=== PATIENT | male | born 1945 | race Caucasian/White ===

== ENCOUNTER 2018-08-24 19:06 | Inpatient (IN) | payer MEDICARE, MEDICAID ==
[~2018-08-24] VITALS: Ht 182.9 cm; Wt 69.0 kg
[2018-08-24 19:20] VITALS: BP 100/70
[2018-08-24] MEDS ORDERED: TYLENOL 650 MG (19:34)
[2018-08-24] MEDS ORDERED: DONEPEZIL HCL5 M2 GT (19:40)
[2018-08-24] MEDS ORDERED: COLACE100 MG/10 GT (19:40)
[2018-08-24] MEDS ORDERED: ASPIRIN81 MG ORAL (19:40)
[2018-08-24] MEDS ORDERED: BACLOFEN5 MG PO (19:40)
[2018-08-24] MEDS ORDERED: ATORVASTATIN CA40 MG ORAL (19:40)
[2018-08-24] MEDS ORDERED: ACETAMINOPHEN325 M1 ORAL (19:40)
[2018-08-24] MEDS ORDERED: SINEMET 25-1001 EAC1 ORAL (19:40)
[2018-08-24] MEDS ORDERED: ENOXAPARIN40 MG/0.4 SUBQ (19:40)
[2018-08-24] MEDS ORDERED: FAMOTIDINE20 MG GT (19:40)
[2018-08-24] MEDS ORDERED: INSULIN ASPART (19:41)
[2018-08-24] MEDS ORDERED: ADVAIR 250-501 EACH INH (19:41)
[2018-08-24] MEDS ORDERED: IPRATROPIU0.2 MG/1 M HHN (19:44)
[2018-08-24] MEDS ORDERED: METOPROLOL TART25 MG ORAL (19:44)
[2018-08-24] MEDS ORDERED: KEPPRA XR500 MG ORAL (19:44)
[2018-08-24] MEDS ORDERED: TAMSULOSIN HCL0.4 MG GT (19:44)
[2018-08-24] MEDS ORDERED: ZINC SULFATE220 M1 GT (19:44)
[2018-08-24] MEDS ORDERED: Acetaminophen 650 MG SUPP RECTAL ONE (21:00)
--- NOTE | 2018-08-24 21:08 | Diagnostic Imaging Report ---
EXAM: XR Chest, 1 View CLINICAL HISTORY: TACHYPNEA TECHNIQUE: Frontal view of the chest. COMPARISON: No relevant prior studies available. FINDINGS: Lungs: Unremarkable. No consolidation. Pleural space: Unremarkable. No pneumothorax. Heart: Unremarkable. No cardiomegaly. Mediastinum: Unremarkable. Bones/joints: Unremarkable. IMPRESSION: Normal chest x-ray.
[2018-08-24 21:25] LABS: APPEARANCE,URINE CLOUDY; BILIRUBIN, URINE NEGATIVE (NEGATIVE); GLUCOSE, URINE (UA) NEGATIVE (NEGATIVE); HEMATOCRIT 34.1 % (42.0-52.0); HEMOGLOBIN 11.4 G/DL (14.2-18.0); KETONES,URINE NEGATIVE (NEGATIVE); LEUKOCYTE ESTERASE ,URINE 3+ (NEGATIVE); MEAN CORPUSCULAR VOLUME 88 FL (80-99); NITRITE,URINE NEGATIVE (NEGATIVE); PH,URINE 9 (4.5-8.0); PLATELET COUNT 349 K/UL (150-450); PROTEIN,URINE 3+ (NEGATIVE); RED BLOOD COUNT 3.89 M/UL (4.70-6.10); RED CELL DISTRIBUTION WIDTH 12.3 % (11.6-14.8); UROBILINOGEN,URINE NORMAL MG/DL (0.0-1.0); WHITE BLOOD COUNT 10.4 K/UL (4.8-10.8)
[2018-08-24 21:26] LABS: COLOR,URINE YELLOW
[2018-08-24 21:27] LABS: NEUTROPHILS % (AUTO) 86.3 % (45.0-75.0)
[2018-08-24 21:28] LABS: BASOPHILS % (AUTO) 0.5 % (0.0-2.0); EOSINOPHILS % (AUTO) 0.2 % (0.0-3.0); LYMPHOCYTES % (AUTO) 8.3 % (20.0-45.0); MONOCYTES % (AUTO) 4.7 % (1.0-10.0)
[2018-08-24 21:33] LABS: ANION GAP 12 mmol/L (5-15); BLOOD UREA NITROGEN 24 mg/dL (7-18); CALCIUM 9.1 MG/DL (8.5-10.1); CARBON DIOXIDE 28 MMOL/L (21-32); CHLORIDE 102 MMOL/L (98-107); CREATININE 1.1 MG/DL (0.55-1.30); POTASSIUM 3.4 MMOL/L (3.5-5.1); SODIUM 141 MMOL/L (136-145)
[2018-08-24] MEDS ORDERED: Cefepime HCl 1 GM in D5W 55 ML IVPB ONE (21:45)
[2018-08-24 21:47] LABS: ALANINE AMINOTRANSFERASE 14 U/L (12-78); ALBUMIN 2.7 G/DL (3.4-5.0); ALBUMIN/GLOBULIN RATIO 0.5 (1.0-2.7); ALKALINE PHOSPHATASE 52 U/L (46-116); ASPARTATE AMINO TRANSFERASE 16 U/L (15-37); BILIRUBIN,TOTAL 0.5 MG/DL (0.2-1.0); CKMB 0.9 NG/ML (0.0-3.6); CREATINE KINASE 79 U/L (26-308)
[2018-08-24] MEDS ORDERED: Albuterol ud Inhalation HHN ONE (22:00)
[2018-08-24] MEDS ORDERED: Ipratropium 0.02% Inh Soln 2.5ml UD HHN ONE (22:00)
--- NOTE | 2018-08-24 22:01 | Diagnostic Imaging Report ---
EXAM: XR Right Hand Complete, 3 or More Views CLINICAL HISTORY: PAIN TECHNIQUE: Frontal, lateral and oblique views of the right hand. COMPARISON: No relevant prior studies available. FINDINGS: Bones/joints: Limited study secondary to positioning. No evidence of acute fracture or traumatic malalignment. Degenerative changes of the carpal bones. Soft tissues: Unremarkable. No radiopaque foreign body. IMPRESSION: Limited study secondary to positioning. No evidence of acute fracture or traumatic malalignment.
--- NOTE | 2018-08-24 23:27 | Emergency Room Report ---
History of Present Illness General Chief Complaint: Upper Respiratory Illness Source: EMS Present Illness HPI 73-year-old male presents ED for evaluation. Patient brought in by EMS for evaluation of cough, fever 2 days. Congested. Temp 101.8. Family at bedside also notes swelling to the right hand. Patient has history of dementia and is unable to provide any additional history at this time. No signs of distress. No reported pain. No other aggravating relieving factors. No other associated symptoms Allergies: Coded Allergies: No Known Allergies (Unverified , 08/24/18) Patient History Past Medical History: HTN, COPD, GERD, CVA/TIA, dementia, psych hx Pertinent Family History: none Social History: Denies: smoking, alcohol use, drug use Immunizations: UTD Reviewed Nursing Documentation: PMH: Agreed; PSxH: Agreed Nursing Documentation-PMH Hx Cardiac Problems: Yes - hyperlipidemia Hx Hypertension: Yes Hx COPD: Yes Hx Diabetes: Yes Hx Gastrointestinal Problems: Yes - gerd History Of Psychiatric Problem: Yes - dementia Hx Cerebrovascular Accident: Yes - cva Hx Seizures: Yes Review of Systems All Other Systems: limited Physical Exam Vital Signs Date Time Temp Pulse Resp B/P (MAP) Pulse Ox O2 Delivery O2 Flow Rate FiO2 08/24/18 19:08 101.8 130 20 100/70 94 Room Air 08/24/18 19:20 2.0 08/24/18 21:56 28 Sp02 EP Interpretation: reviewed, normal General Appearance: no apparent distress, GCS 15, non-toxic, other - dementia Head: normocephalic, atraumatic Eyes: bilateral eye normal inspection, bilateral eye PERRL ENT: hearing grossly normal, normal pharynx, no angioedema, normal voice Neck: full range of motion, supple/symm/no masses Respiratory: crackles, speaking full sentences, wheezing Cardiovascular #1: no edema, tachycardia Cardiovascular #2: 2+ carotid (R), 2+ carotid (L), 2+ radial (R), 2+ radial (L) , 2+ dorsalis pedis (R), 2+ dorsalis pedis (L) Gastrointestinal: normal bowel sounds, non tender, soft, non-distended, no guarding, no rebound Rectal: deferred Genitourinary: normal inspection, no CVA tenderness Musculoskeletal: back normal, gait/station normal, swelling - R hand Neurologic: other - dementia Psychiatric: other - dementia Reflexes: 3+ bicep (R), 3+ bicep (L), 3+ tricep (R), 3+ tricep (L), 3+ knee (R) , 3+ knee (L) Skin: normal color, no rash, warm/dry, well hydrated Lymphatic: no adenopathy Medical Decision Making Diagnostic Impression: Primary Impression: COPD (chronic obstructive pulmonary disease) Qualified Codes: J44.9 - Chronic obstructive pulmonary disease, unspecified Additional Impression: UTI (urinary tract infection) Qualified Codes: N39.0 - Urinary tract infection, site not specified ER Course Hospital Course 73-year-old M presenting to ED with cough, congestion, fever. h/o COPD Differential diagnoses include: Pneumonia, CHF exacerbation, pneumothorax, fluid overload Clinical course Patient placed on stretcher. 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 After initial history and physical, I ordered nebulizer treatments. I ordered labs, IV fluids, EKG, chest x-ray, blood cultures, UA. given tylenol for fever Labs - no leukocytosis noted, hemoglobin/hematocrit stable, electrolytes okay, lactate okay, UA + bacteria EKG - sinus tachycardia, no acute ischemic changes interpreted by me CXR - no infiltrates On review of records patient is DO NOT RESUSCITATE, comfort care abx given. IV fluids given. Given nebs. Case discussed with Dr. Tena and he agreed to the patient to his service for further care and support I feel this is a highly complex case requiring extensive working including EKG/ Rhythm strip, Xray/CT/US, Blood/urine lab work, repeat exams while in ED, and administration of strong opiates/narcotics for pain control, admission to hospital or close patient follow up. Diagnosis - COPD exacerbation, UTI Patient admitted to floor in serious condition Labs Test 08/24/18 20:30 White Blood Count 10.4 K/UL (4.8-10.8) Red Blood Count 3.89 M/UL (4.70-6.10) Hemoglobin 11.4 G/DL (14.2-18.0) Hematocrit 34.1 % (42.0-52.0) Mean Corpuscular Volume 88 FL (80-99) Mean Corpuscular Hemoglobin 29.3 PG (27.0-31.0) Mean Corpuscular Hemoglobin Concent 33.5 G/DL (32.0-36.0) Red Cell Distribution Width 12.3 % (11.6-14.8) Platelet Count 349 K/UL (150-450) Mean Platelet Volume 6.4 FL (6.5-10.1) Neutrophils (%) (Auto) 86.3 % (45.0-75.0) Lymphocytes (%) (Auto) 8.3 % (20.0-45.0) Monocytes (%) (Auto) 4.7 % (1.0-10.0) Eosinophils (%) (Auto) 0.2 % (0.0-3.0) Basophils (%) (Auto) 0.5 % (0.0-2.0) Urine Color Yellow Urine Appearance Cloudy Urine pH 9 (4.5-8.0) Urine Specific [place] 1.010 (1.005-1.035) Urine Protein 3+ (NEGATIVE) Urine Glucose (UA) Negative (NEGATIVE) Urine Ketones Negative (NEGATIVE) Urine Blood 4+ (NEGATIVE) Urine Nitrite Negative (NEGATIVE) Urine Bilirubin Negative (NEGATIVE) Urine Urobilinogen Normal MG/DL (0.0-1.0) Urine Leukocyte Esterase 3+ (NEGATIVE) Urine RBC 10-15 /HPF (0 - 0) Urine WBC 2-4 /HPF (0 - 0) Urine Squamous Epithelial Cells None /LPF (NONE/OCC) Urine Bacteria Many /HPF (NONE) Sodium Level 141 MMOL/L (136-145) Potassium Level 3.4 MMOL/L (3.5-5.1) Chloride Level 102 MMOL/L (98-107) Carbon Dioxide Level 28 MMOL/L (21-32) Anion Gap 12 mmol/L (5-15) Blood Urea Nitrogen 24 mg/dL (7-18) Creatinine 1.1 MG/DL (0.55-1.30) Estimat Glomerular Filtration Rate mL/min (>60) Glucose Level 115 MG/DL (74-106) Lactic Acid Level 1.60 mmol/L (0.4-2.0) Calcium Level 9.1 MG/DL (8.5-10.1) Total Bilirubin 0.5 MG/DL (0.2-1.0) Aspartate Amino Transf (AST/SGOT) 16 U/L (15-37) Alanine Aminotransferase (ALT/SGPT) 14 U/L (12-78) Alkaline Phosphatase 52 U/L (46-116) Total Creatine Kinase 79 U/L (26-308) Creatine Kinase MB 0.9 NG/ML (0.0-3.6) Creatine Kinase MB Relative Index 1.1 Total Protein 7.8 G/DL (6.4-8.2) Albumin 2.7 G/DL (3.4-5.0) Globulin 5.1 g/dL Albumin/Globulin Ratio 0.5 (1.0-2.7) EKG Diagnostic Results Rate: tachycardiac Rhythm: NSR ST Segments: no acute changes ASA given to the pt in ED: No Rhythm Strip Diag. Results EP Interpretation: yes Rhythm: NSR, no PVC's, no ectopy Chest X-Ray Diagnostic Results Chest X-Ray Diagnostic Results : Chest X-Ray Ordered: Yes # of Views/Limited/Complete: 1 View Indication: Shortness of Breath EP Interpretation: Yes Interpretation: no consolidation, no effusion, no pneumothorax, no acute cardiopulmonary disease Impression: No acute disease Electronically Signed by: Electronically signed by Jose Francisco Garcia MD Last Vital Signs Date Time Temp Pulse Resp B/P (MAP) Pulse Ox O2 Delivery O2 Flow Rate FiO2 08/24/18 22:14 121 23 98 Nasal Cannula 2.0 28 08/24/18 19:20 101.8 100/70 Status: improved Disposition: ADMITTED INPATIENT Condition: Serious Referrals: Jaxon Amaro M.D. (PCP) Jose Francisco Garcia MD Aug 24, 2018 23:27
[2018-08-25 00:04] VITALS: BP 139/69
[2018-08-25] MEDS ORDERED: Ketorolac 30mg Inj IV ONE (00:15)
[2018-08-25] MEDS ORDERED: Zolpidem 5mg tab ORAL PRN (02:45)
[2018-08-25] MEDS: cefTRIAXone 1 GM in D5W 55 ML IVPB SCH (03:00)
[2018-08-25] MEDS ORDERED: Ipratropium 0.02% Inh Soln 2.5ml UD HHN PRN (03:15)
[2018-08-25 04:00] VITALS: BP 128/79
[2018-08-25] MEDS: NovoLOG Insulin Flexpen SUBQ SCH ×3 (06:41→17:53)
[2018-08-25 08:00] VITALS: BP 117/73
[2018-08-25 08:16] LABS: BASOPHILS % (AUTO) 0.8 % (0.0-2.0); HEMATOCRIT 32.7 % (42.0-52.0); HEMOGLOBIN 10.9 G/DL (14.2-18.0); LYMPHOCYTES % (AUTO) 14.2 % (20.0-45.0); MEAN CORPUSCULAR VOLUME 87 FL (80-99); MONOCYTES % (AUTO) 6.2 % (1.0-10.0); NEUTROPHILS % (AUTO) 77.8 % (45.0-75.0); PLATELET COUNT 321 K/UL (150-450); RED BLOOD COUNT 3.78 M/UL (4.70-6.10); RED CELL DISTRIBUTION WIDTH 12.3 % (11.6-14.8); WHITE BLOOD COUNT 13.3 K/UL (4.8-10.8)
[2018-08-25 08:37] LABS: ALANINE AMINOTRANSFERASE 20 U/L (12-78); ALBUMIN 2.3 G/DL (3.4-5.0); ALBUMIN/GLOBULIN RATIO 0.5 (1.0-2.7); ALKALINE PHOSPHATASE 46 U/L (46-116); ANION GAP 9 mmol/L (5-15); ASPARTATE AMINO TRANSFERASE 16 U/L (15-37); BILIRUBIN,TOTAL 0.5 MG/DL (0.2-1.0); BLOOD UREA NITROGEN 28 mg/dL (7-18); CALCIUM 8.5 MG/DL (8.5-10.1); CARBON DIOXIDE 27 MMOL/L (21-32); CHLORIDE 107 MMOL/L (98-107); CREATININE 1.1 MG/DL (0.55-1.30); POTASSIUM 3.2 MMOL/L (3.5-5.1); SODIUM 143 MMOL/L (136-145)
[2018-08-25] MEDS: Advair 250/50 Inhaler - 14 dose INH SCH ×2 (08:45→21:00)
[2018-08-25] MEDS: Aspirin Baby 81mg ORAL SCH (08:58)
[2018-08-25] MEDS: Donepezil 5mg Tab ORAL SCH (08:58)
[2018-08-25] MEDS: Zinc Sulfate 220mg cap ORAL SCH (08:58)
[2018-08-25] MEDS: Docusate 100mg/10ml Liq ORAL SCH (08:58)
[2018-08-25] MEDS: Levodopa/Carbidopa 25/100 tab ORAL SCH ×3 (08:59→17:46)
[2018-08-25] MEDS: Metoprolol 25mg tab ORAL SCH ×2 (08:59→20:30)
[2018-08-25] MEDS: Enoxaparin 40mg Inj SUBQ SCH (09:02)
[2018-08-25 12:00] VITALS: BP 118/61
--- NOTE | 2018-08-25 13:23 | Cardiology Report ---
APPROVED REPORT EKG Measurement Heart [id number] Sinus tachycardia with premature atrial complexes Left axis deviation Nonspecific ST abnormality Abnormal ECG
--- NOTE | 2018-08-25 15:14 | History and Physical ---
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 Pt. has thick yellow secretions overnight. case d/w family and rn at bedside. states that lately he sweats alot. he has been on tube feeds x 1 month and has developed leg and sacral wound. Pt. is altered and occasionally screams from ? pain. He is tolerating tube feeds, ua positive with adequate urine output. Allergies: Coded Allergies: No Known Allergies (Unverified , 08/24/18) Medication History Scheduled Aspirin* (Aspirin*), 81 MG ORAL DAILY, (Reported) Atorvastatin Calcium* (Atorvastatin Calcium*), 40 MG ORAL BEDTIME, (Reported) Carbidopa/Levodopa 25-100 Mg* (Sinemet 25-100 Mg Tablet*), 1 TAB ORAL THREE TIMES A DAY, (Reported) Docusate Sodium (Docusate Sodium), 100 MG GT DAILY, (Reported) Donepezil Hcl* (Donepezil Hcl*), 5 MG GT DAILY, (Reported) Enoxaparin Sodium (Enoxaparin Sodium), 40 MG SUBQ DAILY, (Reported) Famotidine (Famotidine), 20 MG GT TWICE A DAY, (Reported) Fluticasone/Salmeterol (Advair 250-50 Diskus), 1 PUFF INH EVERY 12 HOURS, ( Reported) Levetiracetam (Keppra Xr), 500 MG ORAL DAILY, (Reported) Metoprolol Tartrate* (Metoprolol Tartrate*), 25 MG ORAL EVERY 12 HOURS, ( Reported) Tamsulosin Hcl (Tamsulosin Hcl*), 0.4 MG GT BEDTIME, (Reported) Zinc Sulfate (Zinc Sulfate*), 220 MG GT DAILY, (Reported) Scheduled PRN Acetaminophen* (Acetaminophen 325MG Tablet*), 650 MG ORAL Q4H PRN for Mild Pain/ Temp > 100.5, (Reported) Ipratropium [place] 0.5MG/2.5ML (Ipratropium [place] 0.5MG/2.5ML), 0.5 MG HHN Q6H PRN for Shortness of Breath, (Reported) Miscellaneous Medications Baclofen (Baclofen), 5 MG PO, (Reported) [insulin aspart scott], (Reported) [tylenol supp 650 mg], 650, (Reported) Patient History Limited by: medical condition History Provided By: Family Member, Medical Record Healthcare decision maker Resuscitation status Do Not Resuscitate Advanced Directive on File Review of Systems Constitutional: Reports: malaise, weakness Eye: Reports: nose congestion Respiratory: Reports: wheezing Cardiovascular: Reports: PND Gastrointestinal: Denies: nausea, vomiting, melena Genitourinary: Denies: dysuria, frequency, retention Skin: Reports: dryness; Denies: change in color Psychiatric: Reports: hallucinations Neurological: Denies: numbness, seizure Endocrine: Reports: excessive sweating; Denies: intolerance to temperature, increased thirst, increased urine Hematologic/Lymphatic: Denies: swollen glands Physical Exam General Appearance: confused, mild distress, thin HEENT: normocephalic, atraumatic, mucous membranes moist, PERRL, EOMI, supple Neck: supple Respiratory/Chest: rhonchi - bilaterally Cardiovascular/Chest: regular rhythm Abdomen: hypoactive bowel sounds, feeding tube Extremities: non-tender, no edema, no cyanosis 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 grossly normal, aphasia Musculoskeletal: atrophy Last 24 Hour Vital Signs Date Time Temp Pulse Resp B/P (MAP) Pulse Ox O2 Delivery O2 Flow Rate FiO2 08/25/18 12:00 98.9 64 18 118/61 (80) 95 08/25/18 09:00 Nasal Cannula 2.0 08/25/18 08:59 97 117/73 08/25/18 08:45 Room Air 21 08/25/18 08:45 96 18 95 Room Air 21 08/25/18 08:00 97.6 97 19 117/73 (88) 98 08/25/18 04:00 98.2 104 20 128/79 (95) 08/25/18 01:53 Room Air 08/25/18 01:15 100.0 08/25/18 01:00 100.0 102 20 139/69 98 Nasal Cannula 2.0 08/25/18 00:04 100.0 102 20 139/69 98 Nasal Cannula 2.0 28 08/24/18 22:14 121 23 98 Nasal Cannula 2.0 28 08/24/18 21:56 115 19 Nasal Cannula 2.0 28 08/24/18 21:56 115 19 98 Nasal Cannula 2.0 28 08/24/18 19:20 122 20 Nasal Cannula 2.0 08/24/18 19:20 101.8 122 20 100/70 94 Room Air 08/24/18 19:08 101.8 130 20 100/70 94 Room Air Intake and Output 08/24/18 08/25/18 18:59 06:59 Intake Total 335 ml Output Total 400 ml Balance -65 ml Intake Free Water 10 ml Tube Feeding 325 ml Output Urine Total 400 ml Laboratory Tests Test 08/24/18 20:30 08/25/18 07:25 08/25/18 07:35 08/25/18 07:45 White Blood Count 10.4 K/UL (4.8-10.8) 13.3 K/UL (4.8-10.8) H Red Blood Count 3.89 M/UL (4.70-6.10) L 3.78 M/UL (4.70-6.10) L Hemoglobin 11.4 G/DL (14.2-18.0) L 10.9 G/DL (14.2-18.0) L Hematocrit 34.1 % (42.0-52.0) L 32.7 % (42.0-52.0) L Mean Corpuscular Volume 88 FL (80-99) 87 FL (80-99) Mean Corpuscular Hemoglobin 29.3 PG (27.0-31.0) 28.7 PG (27.0-31.0) Mean Corpuscular Hemoglobin Concent 33.5 G/DL (32.0-36.0) 33.2 G/DL (32.0-36.0) Red Cell Distribution Width 12.3 % (11.6-14.8) 12.3 % (11.6-14.8) Platelet Count 349 K/UL (150-450) 321 K/UL (150-450) Mean Platelet Volume 6.4 FL (6.5-10.1) L 7.4 FL (6.5-10.1) Neutrophils (%) (Auto) 86.3 % (45.0-75.0) H 77.8 % (45.0-75.0) H Lymphocytes (%) (Auto) 8.3 % (20.0-45.0) L 14.2 % (20.0-45.0) L Monocytes (%) (Auto) 4.7 % (1.0-10.0) 6.2 % (1.0-10.0) Eosinophils (%) (Auto) 0.2 % (0.0-3.0) 1.0 % (0.0-3.0) Basophils (%) (Auto) 0.5 % (0.0-2.0) 0.8 % (0.0-2.0) Urine Color Yellow Urine Appearance Cloudy Urine pH 9 (4.5-8.0) Urine Specific [place] 1.010 (1.005-1.035) Urine Protein 3+ (NEGATIVE) H Urine Glucose (UA) Negative (NEGATIVE) Urine Ketones Negative (NEGATIVE) Urine Blood 4+ (NEGATIVE) H Urine Nitrite Negative (NEGATIVE) Urine Bilirubin Negative (NEGATIVE) Urine Urobilinogen Normal MG/DL (0.0-1.0) Urine Leukocyte Esterase 3+ (NEGATIVE) H Urine RBC 10-15 /HPF (0 - 0) H Urine WBC 2-4 /HPF (0 - 0) Urine Squamous Epithelial Cells None /LPF (NONE/OCC) Urine Bacteria Many /HPF (NONE) H Sodium Level 141 MMOL/L (136-145) 143 MMOL/L (136-145) Potassium Level 3.4 MMOL/L (3.5-5.1) L 3.2 MMOL/L (3.5-5.1) L Chloride Level 102 MMOL/L (98-107) 107 MMOL/L (98-107) Carbon Dioxide Level 28 MMOL/L (21-32) 27 MMOL/L (21-32) Anion Gap 12 mmol/L (5-15) 9 mmol/L (5-15) Blood Urea Nitrogen 24 mg/dL (7-18) H 28 mg/dL (7-18) H Creatinine 1.1 MG/DL (0.55-1.30) 1.1 MG/DL (0.55-1.30) Estimat Glomerular Filtration Rate mL/min (>60) mL/min (>60) Glucose Level 115 MG/DL (74-106) H 121 MG/DL (74-106) H Lactic Acid Level 1.60 mmol/L (0.4-2.0) Calcium Level 9.1 MG/DL (8.5-10.1) 8.5 MG/DL (8.5-10.1) Total Bilirubin 0.5 MG/DL (0.2-1.0) 0.5 MG/DL (0.2-1.0) Aspartate Amino Transf (AST/SGOT) 16 U/L (15-37) 16 U/L (15-37) Alanine Aminotransferase (ALT/SGPT) 14 U/L (12-78) 20 U/L (12-78) Alkaline Phosphatase 52 U/L (46-116) 46 U/L (46-116) Total Creatine Kinase 79 U/L (26-308) Creatine Kinase MB 0.9 NG/ML (0.0-3.6) Creatine Kinase MB Relative Index 1.1 Total Protein 7.8 G/DL (6.4-8.2) 7.0 G/DL (6.4-8.2) Albumin 2.7 G/DL (3.4-5.0) L 2.3 G/DL (3.4-5.0) L Globulin 5.1 g/dL 4.7 g/dL Albumin/Globulin Ratio 0.5 (1.0-2.7) L 0.5 (1.0-2.7) L Hemoglobin A1c 5.2 % (4.3-6.0) Vitamin B12 Level 674 PG/ML (193-986) Thyroid Stimulating Hormone (TSH) 0.252 uiU/mL (0.358-3.740) Microbiology Date/Time Source Procedure Growth Status 08/24/18 20:30 Urine,Clean Catch Urine Culture - Preliminary Gram Negative Raffi Resulted Height (Feet): 6 Height (Inches): 0.00 Weight (Pounds): 160 Medications Current Medications Medications (Trade) Dose Ordered Sig/Santosh Route PRN Reason Start Time Stop Time Status Last Admin Dose Admin Acetaminophen (Tylenol) 650 mg Q4H PRN ORAL Mild Pain/Temp > 100.5 08/25/18 03:15 09/24/18 03:14 08/25/18 06:14 Aspirin (ASA) 81 mg DAILY ORAL 08/25/18 09:00 09/24/18 08:59 08/25/18 08:58 Atorvastatin Calcium (Lipitor) 40 mg BEDTIME ORAL 08/25/18 21:00 09/24/18 20:59 Carbidopa/Levodopa (Sinemet 25/100) 1 tab THREE TIMES A DAY ORAL 08/25/18 09:00 09/24/18 08:59 08/25/18 13:08 Ceftriaxone Sodium 1 gm/ Dextrose 55 ml @ 110 mls/hr Q24H IVPB 08/25/18 03:00 09/01/18 02:59 08/25/18 03:00 Dextrose (Dextrose 50%) 25 ml Q30M PRN IV Hypoglycemia 08/25/18 02:45 09/24/18 02:44 Dextrose (Dextrose 50%) 50 ml Q30M PRN IV Hypoglycemia 08/25/18 02:45 09/24/18 02:44 Docusate Sodium (Colace) 100 mg DAILY ORAL 08/25/18 09:00 09/24/18 08:59 08/25/18 08:58 Donepezil HCl (Aricept) 5 mg DAILY ORAL 08/25/18 09:00 09/24/18 08:59 08/25/18 08:58 Enoxaparin Sodium (Lovenox) 40 mg DAILY SUBQ 08/25/18 09:00 09/24/18 08:59 08/25/18 09:02 Famotidine (Pepcid) 20 mg TWICE A DAY ORAL 08/25/18 09:00 09/24/18 08:59 08/25/18 08:58 Insulin Aspart (NovoLOG) EVERY 6 HOURS SUBQ 08/25/18 06:00 09/24/18 05:59 08/25/18 12:02 Ipratropium [place] (Atrovent) 500 mcg Q6H PRN HHN Shortness of Breath 08/25/18 03:15 08/30/18 03:14 Metoprolol Tartrate (Lopressor) 25 mg EVERY 12 HOURS ORAL 08/25/18 09:00 09/24/18 08:59 08/25/18 08:59 Ondansetron HCl (Zofran) 4 mg Q6H PRN IVP Nausea & Vomiting 08/25/18 02:45 09/24/18 02:44 Potassium Chloride (K-Dur) 40 meq ONCE ORAL 08/25/18 15:00 08/25/18 16:00 Salmeterol Xinafoate/ Fluticasone (Advair 250/50 Diskus) 1 puffs EVERY 12 HOURS INH 08/25/18 09:00 09/24/18 08:59 Tamsulosin HCl (Flomax) 0.4 mg BEDTIME ORAL 08/25/18 21:00 09/24/18 20:59 Zinc Sulfate (Zinc Sulfate) 220 mg DAILY ORAL 08/25/18 09:00 09/24/18 08:59 08/25/18 08:58 Zolpidem Tartrate (Ambien) 5 mg HSPRN PRN ORAL Insomnia 08/25/18 02:45 09/01/18 02:44 Assessment/Plan Problem List: (1) COPD (chronic obstructive pulmonary disease) Assessment & Plan: -add hhn, send sputum for cs, gram stain -cont iv abx for probable pneumonia -will get pulmonary eval ICD Codes: J44.9 - Chronic obstructive pulmonary disease, unspecified SNOMED: 85441254 Qualifiers: Qualified Codes: J44.9 - Chronic obstructive pulmonary disease, unspecified (2) UTI (urinary tract infection) Assessment & Plan: -cont iv abx, await cultures ICD Codes: N39.0 - Urinary tract infection, site not specified SNOMED: 38499723 Qualifiers: Qualified Codes: N39.0 - Urinary tract infection, site not specified (3) Pneumonia Assessment & Plan: -hhn, o2, f.u cxr, iv abx, sputum cultures ICD Codes: J18.9 - Pneumonia, unspecified organism SNOMED: 749500857 (4) Diabetes 1.5, managed as type 2 Assessment & Plan: -follow bs, on ssi ICD Codes: E10.9 - Type 1 diabetes mellitus without complications SNOMED: 082333321 (5) Hypothyroid ICD Codes: E03.9 - Hypothyroidism, unspecified SNOMED: 68919432 (6) Dysphagia as late effect of cerebrovascular accident (CVA) Assessment & Plan: -cont tube feeds ICD Codes: I69.391 - Dysphagia following cerebral infarction SNOMED: 438509910 Status: not improved, fever, hypovolemia Jaxon Amaro M.D. Aug 25, 2018 15:14
[2018-08-25] MEDS ORDERED: Vancomycin 1 GM in D5W 275 ML IVPB SCH (15:15)
[2018-08-25 16:00] VITALS: BP 121/63
[2018-08-25] MEDS: Vancomycin 1.5 GM/D5W 250ML IVPB SCH (17:46)
[2018-08-25] MEDS: Albuterol ud Inhalation HHN SCH (19:49)
[2018-08-25 20:00] VITALS: BP 132/78
[2018-08-25] MEDS: Tamsulosin 0.4mg cap ORAL SCH (20:29)
[2018-08-25] MEDS: Atorvastatin 80mg tab ORAL SCH (20:30)
[2018-08-26] VITALS (7 sets, daily range): BP systolic 129–145; BP diastolic 72–86
[2018-08-26] MEDS: Albuterol ud Inhalation HHN SCH ×4 (00:19→20:07)
[2018-08-26] MEDS: NovoLOG Insulin Flexpen SUBQ SCH ×4 (00:50→17:34)
[2018-08-26] MEDS: cefTRIAXone 1 GM in D5W 55 ML IVPB SCH (02:59)
[2018-08-26 07:22] LABS: ANION GAP 8 mmol/L (5-15); BLOOD UREA NITROGEN 25 mg/dL (7-18); CALCIUM 8.5 MG/DL (8.5-10.1); CARBON DIOXIDE 28 MMOL/L (21-32); CHLORIDE 109 MMOL/L (98-107); CREATININE 0.8 MG/DL (0.55-1.30); POTASSIUM 3.8 MMOL/L (3.5-5.1); SODIUM 144 MMOL/L (136-145)
[2018-08-26 07:28] LABS: BASOPHILS % (AUTO) 1.2 % (0.0-2.0); EOSINOPHILS % (AUTO) 6.7 % (0.0-3.0); HEMATOCRIT 27.1 % (42.0-52.0); LYMPHOCYTES % (AUTO) 20.3 % (20.0-45.0); MEAN CORPUSCULAR VOLUME 87 FL (80-99); MONOCYTES % (AUTO) 8.1 % (1.0-10.0); NEUTROPHILS % (AUTO) 63.7 % (45.0-75.0); PLATELET COUNT 284 K/UL (150-450); RED BLOOD COUNT 3.12 M/UL (4.70-6.10); RED CELL DISTRIBUTION WIDTH 12.5 % (11.6-14.8); WHITE BLOOD COUNT 7.9 K/UL (4.8-10.8)
[2018-08-26] MEDS: Advair 250/50 Inhaler - 14 dose INH SCH ×2 (08:20→20:54)
[2018-08-26] MEDS: Enoxaparin 40mg Inj SUBQ SCH (09:25)
[2018-08-26] MEDS: Donepezil 5mg Tab ORAL SCH (09:25)
[2018-08-26] MEDS: Docusate 100mg/10ml Liq ORAL SCH (09:25)
[2018-08-26] MEDS: Levodopa/Carbidopa 25/100 tab ORAL SCH ×3 (09:26→17:25)
[2018-08-26] MEDS: Zinc Sulfate 220mg cap ORAL SCH (09:26)
[2018-08-26] MEDS: Metoprolol 25mg tab ORAL SCH ×2 (09:26→20:44)
--- NOTE | 2018-08-26 10:03 | Nephrology Progress Note ---
Assessment/Plan Problem List: (1) COPD (chronic obstructive pulmonary disease) Assessment & Plan: -better with hhn, await sputum for cs, gram stain -cont iv abx for probable pneumonia -repeat cxr in am ICD Codes: J44.9 - Chronic obstructive pulmonary disease, unspecified SNOMED: 37993654 Qualifiers: Qualified Codes: J44.9 - Chronic obstructive pulmonary disease, unspecified (2) UTI (urinary tract infection) Assessment & Plan: -cultures noted, iv abx ICD Codes: N39.0 - Urinary tract infection, site not specified SNOMED: 60790775 Qualifiers: Qualified Codes: N39.0 - Urinary tract infection, site not specified (3) Pneumonia Assessment & Plan: -hhn, o2, f.u cxr, iv abx, sputum cultures ICD Codes: J18.9 - Pneumonia, unspecified organism SNOMED: 446176952 Qualifiers: (4) Diabetes 1.5, managed as type 2 Assessment & Plan: -follow bs, on ssi ICD Codes: E10.9 - Type 1 diabetes mellitus without complications SNOMED: 515693220 (5) Hypothyroid ICD Codes: E03.9 - Hypothyroidism, unspecified SNOMED: 87855288 Qualifiers: Qualified Codes: E03.9 - Hypothyroidism, unspecified (6) Dysphagia as late effect of cerebrovascular accident (CVA) Assessment & Plan: -cont tube feeds ICD Codes: I69.391 - Dysphagia following cerebral infarction SNOMED: 133441582 Status: stable Subjective Date patient seen: Aug 26, 2018 ROS Limited/Unobtainable: Yes Respiratory: Reports: cough, sputum Hematologic/Lymphatic: Denies: no symptoms, anemia, easy bleeding, easy bruising, other Allergies: Coded Allergies: No Known Allergies (Unverified , 08/24/18) Objective Last 24 Hour Vital Signs Date Time Temp Pulse Resp B/P (MAP) Pulse Ox O2 Delivery O2 Flow Rate FiO2 08/26/18 09:26 94 136/80 08/26/18 08:26 107 20 100 Nasal Cannula 2.0 28 08/26/18 08:20 96 18 98 Room Air 21 08/26/18 08:20 Room Air 21 08/26/18 08:18 96 19 Nasal Cannula 2.0 28 08/26/18 08:18 96 19 99 Nasal Cannula 2.0 28 08/26/18 04:00 98.0 90 20 129/84 (99) 97 08/26/18 00:30 104 20 100 Nasal Cannula 2.0 28 08/26/18 00:19 99 19 98 Nasal Cannula 2.0 28 08/26/18 00:00 98.2 95 21 130/80 (97) 98 08/25/18 21:48 Room Air 21 08/25/18 21:00 Nasal Cannula 2.0 08/25/18 20:30 112 121/63 08/25/18 20:05 112 23 99 Nasal Cannula 2.0 28 08/25/18 20:00 97.9 91 20 132/78 (96) 97 08/25/18 19:57 104 19 97 Nasal Cannula 2.0 28 08/25/18 19:53 102 19 Nasal Cannula 2.0 28 08/25/18 19:53 102 19 97 Nasal Cannula 2.0 28 08/25/18 16:00 98.6 66 18 121/63 (82) 97 08/25/18 12:00 98.9 64 18 118/61 (80) 95 Intake and Output 08/25/18 08/26/18 19:00 07:00 Intake Total 12 ml 65 ml Output Total 650 ml 375 ml Balance -638 ml -310 ml IV Total 12 ml Tube Feeding 65 ml Output Urine Total 650 ml 375 ml Laboratory Tests 08/26/18 06:35: White Blood Count 7.9, Red Blood Count 3.12L, Hemoglobin 9.0L, Hematocrit 27.1L , Mean Corpuscular Volume 87, Mean Corpuscular Hemoglobin 29.0, Mean Corpuscular Hemoglobin Concent 33.3, Red Cell Distribution Width 12.5, Platelet Count 284, Mean Platelet Volume 7.1, Neutrophils (%) (Auto) 63.7, Lymphocytes (% ) (Auto) 20.3, Monocytes (%) (Auto) 8.1, Eosinophils (%) (Auto) 6.7H, Basophils (%) (Auto) 1.2, Sodium Level 144, Potassium Level 3.8, Chloride Level 109H, Carbon Dioxide Level 28, Anion Gap 8, Blood Urea Nitrogen 25H, Creatinine 0.8, Estimat Glomerular Filtration Rate , Glucose Level 118H, Calcium Level 8.5 Height (Feet): 6 Height (Inches): 0.00 Weight (Pounds): 160 General Appearance: alert, confused EENT: PERRL/EOMI, normal ENT inspection Neck: non-tender Cardiovascular: normal rate Respiratory/Chest: rhonchi - bilaterally Abdomen: soft Edema: trace edema 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 Aug 26, 2018 10:03
[2018-08-26] MEDS: Aspirin Baby 81mg ORAL SCH (10:37)
[2018-08-26] MEDS: Vancomycin 1.5 GM/D5W 250ML IVPB SCH (17:26)
[2018-08-26] MEDS: Tamsulosin 0.4mg cap ORAL SCH (20:44)
[2018-08-26] MEDS: Atorvastatin 80mg tab ORAL SCH (20:44)
--- NOTE | 2018-08-27 00:15 | Consultation ---
DATE OF CONSULTATION: 08/25/2018 NOTE: POOR AUDIO CONSULTING PHYSICIAN: Migel Kahn D.P.M. REFERRING PHYSICIAN: Jaxon Amaro M.D. REASON FOR CONSULTATION: Ulceration to the left foot. HISTORY OF PRESENT ILLNESS: This is a 73-year-old diabetic patient admitted to [facility] for evaluation and treatment by and has been followed . PAST MEDICAL HISTORY: Per Dr. Amaro. COPD, pneumonia,, hypertension, hypothyroidism, and diabetes. PODIATRY EVALUATION: VASCULAR: Dorsalis pedis is palpable 2/4. Capillary filling time is about 3 seconds. There is edema noted to bilateral feet, spongy in nature, extended distal to the knee down to the metatarsophalangeal joints. Posterior tibial artery palpable 1/4. NEUROLOGICAL: Sharp and dull proprioception and protected threshold is noted to be intact to bilateral feet. MUSCULOSKELETAL: The patient is bedbound. Muscle strength is noted 2/4 in all four quadrants. Contracted digits noted, 2 through 5, at the PIPJ consistent with hammertoes. The patient metatarsophalangeal joint noted to be slightly abducted. The hallux is in valgus position consistent with mild hallux abductovalgus deformity. DERMATOLOGICAL: Attention was directed to the posterior heel of the left foot where a deeper incision was noted. The ulceration is about 1 cm in diameter, dry. Scab is noted probing undermining can be appreciated. No drainage or discharge infection is noted. No cellulitis is seen. ASSESSMENT AND PLAN: This is a 73-year-old diabetic patient with COPD, pneumonia, UTI, hypothyroidism, diabetes. He had been followed by Dr. Amaro. Ulceration noted to be stable. Continue to treat this. May apply Betadine to the ulceration and proper offloading . Migel Kahn D.P.M DR: Tamara JOB#: [id number] CC:
[2018-08-27] MEDS: NovoLOG Insulin Flexpen SUBQ SCH ×5 (00:46→23:28)
[2018-08-27] MEDS: Albuterol ud Inhalation HHN SCH ×4 (00:53→19:00)
[2018-08-27] MEDS: cefTRIAXone 1 GM in D5W 55 ML IVPB SCH (02:13)
[2018-08-27 04:00] VITALS: BP 135/77
[2018-08-27 07:18] LABS: BASOPHILS % (AUTO) 0.8 % (0.0-2.0); EOSINOPHILS % (AUTO) 5.2 % (0.0-3.0); HEMATOCRIT 27.4 % (42.0-52.0); LYMPHOCYTES % (AUTO) 24.1 % (20.0-45.0); MEAN CORPUSCULAR VOLUME 87 FL (80-99); MONOCYTES % (AUTO) 8.8 % (1.0-10.0); NEUTROPHILS % (AUTO) 61.2 % (45.0-75.0); PLATELET COUNT 274 K/UL (150-450); RED BLOOD COUNT 3.14 M/UL (4.70-6.10); RED CELL DISTRIBUTION WIDTH 12.5 % (11.6-14.8); WHITE BLOOD COUNT 5.9 K/UL (4.8-10.8)
[2018-08-27 07:36] LABS: ANION GAP 8 mmol/L (5-15); BLOOD UREA NITROGEN 17 mg/dL (7-18); CALCIUM 8.5 MG/DL (8.5-10.1); CARBON DIOXIDE 28 MMOL/L (21-32); CHLORIDE 110 MMOL/L (98-107); CREATININE 0.7 MG/DL (0.55-1.30); POTASSIUM 3.8 MMOL/L (3.5-5.1); SODIUM 146 MMOL/L (136-145)
[2018-08-27 08:35] VITALS: BP 118/76
[2018-08-27] MEDS: Advair 250/50 Inhaler - 14 dose INH SCH ×2 (09:00→21:00)
[2018-08-27] MEDS: Donepezil 5mg Tab ORAL SCH (09:21)
[2018-08-27] MEDS: Zinc Sulfate 220mg cap ORAL SCH (09:21)
[2018-08-27] MEDS: Aspirin Baby 81mg ORAL SCH (09:22)
[2018-08-27] MEDS: Docusate 100mg/10ml Liq ORAL SCH (09:22)
[2018-08-27] MEDS: Levodopa/Carbidopa 25/100 tab ORAL SCH ×3 (09:22→17:22)
[2018-08-27] MEDS: Enoxaparin 40mg Inj SUBQ SCH (09:23)
[2018-08-27] MEDS: Metoprolol 25mg tab ORAL SCH ×2 (09:24→20:44)
[2018-08-27 12:00] VITALS: BP 121/80
--- NOTE | 2018-08-27 15:32 | Nephrology Progress Note ---
Assessment/Plan Problem List: (1) COPD (chronic obstructive pulmonary disease) Assessment & Plan: -better with hhn, await sputum for cs, gram stain -cont iv abx for probable pneumonia -repeat cxr in am ICD Codes: J44.9 - Chronic obstructive pulmonary disease, unspecified SNOMED: 84245995 Qualifiers: Qualified Codes: J44.9 - Chronic obstructive pulmonary disease, unspecified (2) UTI (urinary tract infection) Assessment & Plan: -cultures noted, iv abx ICD Codes: N39.0 - Urinary tract infection, site not specified SNOMED: 04196037 Qualifiers: Qualified Codes: N39.0 - Urinary tract infection, site not specified (3) Pneumonia Assessment & Plan: -hhn, o2, f.u cxr, iv abx, sputum cultures ICD Codes: J18.9 - Pneumonia, unspecified organism SNOMED: 951806094 Qualifiers: (4) Diabetes 1.5, managed as type 2 Assessment & Plan: -follow bs, on ssi ICD Codes: E10.9 - Type 1 diabetes mellitus without complications SNOMED: 038165885 (5) Hypothyroid ICD Codes: E03.9 - Hypothyroidism, unspecified SNOMED: 61638764 Qualifiers: Qualified Codes: E03.9 - Hypothyroidism, unspecified (6) Dysphagia as late effect of cerebrovascular accident (CVA) Assessment & Plan: -cont tube feeds ICD Codes: I69.391 - Dysphagia following cerebral infarction SNOMED: 141997561 Assessment/Plan Bacteremia -cont vanco for now, ID eval Subjective Date patient seen: Aug 27, 2018 Constitutional: Reports: no symptoms HEENT: Reports: no symptoms Cardiovascular: Reports: no symptoms Respiratory: Reports: no symptoms Neurologic/Psychiatric: Reports: no symptoms Endocrine: Reports: no symptoms Allergies: Coded Allergies: No Known Allergies (Unverified , 08/24/18) Objective Last 24 Hour Vital Signs Date Time Temp Pulse Resp B/P (MAP) Pulse Ox O2 Delivery O2 Flow Rate FiO2 08/27/18 12:42 Nasal Cannula 2.0 28 08/27/18 12:42 Nasal Cannula 2.0 28 08/27/18 12:00 97.9 80 18 121/80 (94) 96 08/27/18 11:04 Nasal Cannula 2.0 08/27/18 09:24 81 117/76 08/27/18 08:35 98.8 81 17 118/76 (90) 97 08/27/18 07:00 Nasal Cannula 2.0 28 08/27/18 07:00 83 20 Nasal Cannula 2.0 28 08/27/18 07:00 Nasal Cannula 2.0 28 08/27/18 07:00 Nasal Cannula 2.0 28 08/27/18 07:00 Nasal Cannula 2.0 28 08/27/18 04:00 98.5 86 18 135/77 (96) 98 08/27/18 00:52 Nasal Cannula 2.0 28 08/27/18 00:52 Nasal Cannula 2.0 28 08/26/18 23:52 98.5 85 18 131/72 (91) 98 08/26/18 21:00 Nasal Cannula 2.0 08/26/18 20:55 Nasal Cannula 2.0 28 08/26/18 20:55 Nasal Cannula 2.0 28 08/26/18 20:44 87 139/78 08/26/18 20:19 110 20 99 Nasal Cannula 2.0 28 08/26/18 20:11 98 19 Nasal Cannula 2.0 28 08/26/18 20:07 97 20 98 Nasal Cannula 2.0 28 08/26/18 20:00 98.7 87 18 139/78 (98) 98 08/26/18 16:00 99.5 89 18 145/86 (105) 99 Intake and Output 08/26/18 08/27/18 19:00 07:00 Intake Total 1180 ml 995 ml Output Total 450 ml 650 ml Balance 730 ml 345 ml Intake Free Water 150 ml 160 ml IV Total 250 ml 55 ml Tube Feeding 780 ml 780 ml Output Urine Total 450 ml 650 ml # Bowel Movements 1 Laboratory Tests 08/27/18 06:40: White Blood Count 5.9, Red Blood Count 3.14L, Hemoglobin 9.0L, Hematocrit 27.4L , Mean Corpuscular Volume 87, Mean Corpuscular Hemoglobin 28.8, Mean Corpuscular Hemoglobin Concent 33.0, Red Cell Distribution Width 12.5, Platelet Count 274, Mean Platelet Volume 7.3, Neutrophils (%) (Auto) 61.2, Lymphocytes (% ) (Auto) 24.1, Monocytes (%) (Auto) 8.8, Eosinophils (%) (Auto) 5.2H, Basophils (%) (Auto) 0.8, Sodium Level 146H, Potassium Level 3.8, Chloride Level 110H, Carbon Dioxide Level 28, Anion Gap 8, Blood Urea Nitrogen 17, Creatinine 0.7, Estimat Glomerular Filtration Rate , Glucose Level 134H, Calcium Level 8.5, Magnesium Level 2.1, Thyroid Stimulating Hormone (TSH) 0.134L, Free Thyroxine 1.20 Height (Feet): 6 Height (Inches): 0.00 Weight (Pounds): 160 General Appearance: no apparent distress, confused EENT: PERRL/EOMI Neck: supple, limited range of motion Cardiovascular: regular rhythm Respiratory/Chest: decreased breath sounds Abdomen: normal bowel sounds Pelvis: normal external exam Jaxon Amaro M.D. Aug 27, 2018 15:32
[2018-08-27 16:00] VITALS: BP 129/98
[2018-08-27] MEDS: Vancomycin 1.5 GM/D5W 250ML IVPB SCH (17:21)
--- NOTE | 2018-08-27 18:53 | Infectious Diseases Prog Note ---
Assessment/Plan Problems: (1) Sepsis due to coagulase-negative staphylococcal infection Assessment & Plan: source most likely his pressure wounds, continue vancomycin , pendng final culture, order echo to rule out vegetations, will repeat blood culture to confirm clearance (2) Aspiration pneumonia Assessment & Plan: will start ertapenem and continue vancomycin empirically , with aspiration precaution, keep HOB > 30 degree all the time (3) UTI (urinary tract infection) Assessment & Plan: due to ESBL producing Klebsiella pneumonia and proteus mirabilis , will start ertapenem and treat for two weeks . change edwards catheter if not done yet (4) COPD (chronic obstructive pulmonary disease) Assessment & Plan: due to the above , continue antibiotics, inhalers and nebulizer therapy (5) Diabetes 1.5, managed as type 2 Assessment & Plan: recommend tight glycemic control (6) Heel ulcer Assessment & Plan: on the left mainly, will order bone scan to rule out osteomyelitis , continue local wound care and dressing change as per hospital protocol Subjective Allergies: Coded Allergies: No Known Allergies (Unverified , 08/24/18) Objective Vital Signs Last 24 Hour Vital Signs Date Time Temp Pulse Resp B/P (MAP) Pulse Ox O2 Delivery O2 Flow Rate FiO2 08/27/18 16:00 98.6 66 19 129/98 (108) 99 08/27/18 12:42 Nasal Cannula 2.0 28 08/27/18 12:42 Nasal Cannula 2.0 28 08/27/18 12:00 97.9 80 18 121/80 (94) 96 08/27/18 11:04 Nasal Cannula 2.0 08/27/18 09:24 81 117/76 08/27/18 08:35 98.8 81 17 118/76 (90) 97 08/27/18 07:00 Nasal Cannula 2.0 28 08/27/18 07:00 83 20 Nasal Cannula 2.0 28 08/27/18 07:00 Nasal Cannula 2.0 28 08/27/18 07:00 Nasal Cannula 2.0 28 08/27/18 07:00 Nasal Cannula 2.0 28 08/27/18 04:00 98.5 86 18 135/77 (96) 98 08/27/18 00:52 Nasal Cannula 2.0 28 08/27/18 00:52 Nasal Cannula 2.0 28 08/26/18 23:52 98.5 85 18 131/72 (91) 98 08/26/18 21:00 Nasal Cannula 2.0 08/26/18 20:55 Nasal Cannula 2.0 28 08/26/18 20:55 Nasal Cannula 2.0 28 08/26/18 20:44 87 139/78 08/26/18 20:19 110 20 99 Nasal Cannula 2.0 28 08/26/18 20:11 98 19 Nasal Cannula 2.0 28 08/26/18 20:07 97 20 98 Nasal Cannula 2.0 28 08/26/18 20:00 98.7 87 18 139/78 (98) 98 Height (Feet): 6 Height (Inches): 0.00 Weight (Pounds): 160 Microbiology Date/Time Source Procedure Growth Status 08/24/18 21:00 Blood Blood Culture - Preliminary Staphylococcus Sp Coag Neg Resulted 08/24/18 20:50 Blood Blood Culture - Preliminary Staphylococcus Sp Coag Neg Resulted 08/24/18 23:50 Nasal Nares MRSA Culture - Final Staphylococcus Aureus - Mrsa Complete 08/24/18 20:30 Urine,Clean Catch Urine Culture - Final Klebsiella Pneumoniae Esbl Proteus Mirabilis Complete 08/24/18 23:50 Rectum - Final NO CARBAPENEM-RESISTANT ENTEROBACTERI... Complete 08/24/18 23:50 Rectum VRE Culture - Final NO VANCOMYCIN RESISTANT ENTEROCOCCUS ... Complete Laboratory Tests Test 08/27/18 06:40 White Blood Count 5.9 K/UL (4.8-10.8) Red Blood Count 3.14 M/UL (4.70-6.10) L Hemoglobin 9.0 G/DL (14.2-18.0) L Hematocrit 27.4 % (42.0-52.0) L Mean Corpuscular Volume 87 FL (80-99) Mean Corpuscular Hemoglobin 28.8 PG (27.0-31.0) Mean Corpuscular Hemoglobin Concent 33.0 G/DL (32.0-36.0) Red Cell Distribution Width 12.5 % (11.6-14.8) Platelet Count 274 K/UL (150-450) Mean Platelet Volume 7.3 FL (6.5-10.1) Neutrophils (%) (Auto) 61.2 % (45.0-75.0) Lymphocytes (%) (Auto) 24.1 % (20.0-45.0) Monocytes (%) (Auto) 8.8 % (1.0-10.0) Eosinophils (%) (Auto) 5.2 % (0.0-3.0) H Basophils (%) (Auto) 0.8 % (0.0-2.0) Sodium Level 146 MMOL/L (136-145) H Potassium Level 3.8 MMOL/L (3.5-5.1) Chloride Level 110 MMOL/L (98-107) H Carbon Dioxide Level 28 MMOL/L (21-32) Anion Gap 8 mmol/L (5-15) Blood Urea Nitrogen 17 mg/dL (7-18) Creatinine 0.7 MG/DL (0.55-1.30) Estimat Glomerular Filtration Rate mL/min (>60) Glucose Level 134 MG/DL (74-106) H Calcium Level 8.5 MG/DL (8.5-10.1) Magnesium Level 2.1 MG/DL (1.8-2.4) Thyroid Stimulating Hormone (TSH) 0.134 uiU/mL (0.358-3.740) Free Thyroxine 1.20 NG/DL (0.76-1.46) Current Medications Medications (Trade) Dose Ordered Sig/Santosh Route PRN Reason Start Time Stop Time Status Last Admin Dose Admin Acetaminophen (Tylenol) 650 mg Q4H PRN ORAL Mild Pain/Temp > 100.5 08/25/18 03:15 09/24/18 03:14 08/25/18 06:14 Albuterol Sulfate (Proventil) 2.5 mg Q6HRT HHN 08/25/18 19:00 08/30/18 18:59 08/26/18 20:07 Aspirin (ASA) 81 mg DAILY ORAL 08/25/18 09:00 09/24/18 08:59 08/27/18 09:22 Atorvastatin Calcium (Lipitor) 40 mg BEDTIME ORAL 08/25/18 21:00 09/24/18 20:59 08/26/18 20:44 Carbidopa/Levodopa (Sinemet 25/100) 1 tab THREE TIMES A DAY ORAL 08/25/18 09:00 09/24/18 08:59 08/27/18 17:22 Dextrose (Dextrose 50%) 25 ml Q30M PRN IV Hypoglycemia 08/25/18 02:45 09/24/18 02:44 Dextrose (Dextrose 50%) 50 ml Q30M PRN IV Hypoglycemia 08/25/18 02:45 09/24/18 02:44 Docusate Sodium (Colace) 100 mg DAILY ORAL 08/25/18 09:00 09/24/18 08:59 08/27/18 09:22 Donepezil HCl (Aricept) 5 mg DAILY ORAL 08/25/18 09:00 09/24/18 08:59 08/27/18 09:21 Enoxaparin Sodium (Lovenox) 40 mg DAILY SUBQ 08/25/18 09:00 09/24/18 08:59 08/27/18 09:23 Ertapenem 1 gm/ Sodium Chloride 55 ml @ 110 mls/hr Q24H IVPB 08/27/18 20:00 09/01/18 19:59 UNV Famotidine (Pepcid) 20 mg TWICE A DAY ORAL 08/25/18 09:00 09/24/18 08:59 08/27/18 17:22 Insulin Aspart (NovoLOG) EVERY 6 HOURS SUBQ 08/25/18 06:00 09/24/18 05:59 08/27/18 11:54 Ipratropium [place] (Atrovent) 500 mcg Q6H PRN HHN Shortness of Breath 08/25/18 03:15 08/30/18 03:14 Metoprolol Tartrate (Lopressor) 25 mg EVERY 12 HOURS ORAL 08/25/18 09:00 09/24/18 08:59 08/27/18 09:24 Mupirocin (Bactroban Oint) 1 applic BID TOPIC 08/27/18 18:00 09/03/18 09:01 08/27/18 17:22 Ondansetron HCl (Zofran) 4 mg Q6H PRN IVP Nausea & Vomiting 08/25/18 02:45 09/24/18 02:44 Salmeterol Xinafoate/ Fluticasone (Advair 250/50 Diskus) 1 puffs EVERY 12 HOURS INH 08/25/18 09:00 09/24/18 08:59 Tamsulosin HCl (Flomax) 0.4 mg BEDTIME ORAL 08/25/18 21:00 09/24/18 20:59 08/26/18 20:44 Vancomycin HCl (Vanco rx to dose) 1 ea DAILY PRN MISC . 08/25/18 15:30 09/24/18 15:29 Vancomycin HCl/ Dextrose 250 ml @ 125 mls/hr Q24H IVPB 08/25/18 17:00 08/30/18 16:59 08/27/18 17:21 Zinc Sulfate (Zinc Sulfate) 220 mg DAILY ORAL 08/25/18 09:00 09/24/18 08:59 08/27/18 09:21 Zolpidem Tartrate (Ambien) 5 mg HSPRN PRN ORAL Insomnia 08/25/18 02:45 09/01/18 02:44 Vilma Cedeño M.D. Aug 27, 2018 18:53
[2018-08-27 20:00] VITALS: BP 128/69
[2018-08-27] MEDS: Tamsulosin 0.4mg cap ORAL SCH (20:43)
[2018-08-27] MEDS: Atorvastatin 80mg tab ORAL SCH (20:43)
[2018-08-27] MEDS: Ertapenem 1 GM in NS 55 ML IVPB SCH (20:43)
[2018-08-28] VITALS: BP 113/67
[2018-08-28] MEDS: Albuterol ud Inhalation HHN SCH ×4 (01:00→19:00)
[2018-08-28 04:00] VITALS: BP 119/70
[2018-08-28] MEDS: NovoLOG Insulin Flexpen SUBQ SCH ×3 (06:05→17:50)
[2018-08-28 08:00] VITALS: BP 134/74
[2018-08-28] MEDS: Advair 250/50 Inhaler - 14 dose INH SCH ×2 (09:00→19:18)
[2018-08-28] MEDS: Aspirin Baby 81mg ORAL SCH (09:28)
[2018-08-28] MEDS: Zinc Sulfate 220mg cap ORAL SCH (09:28)
[2018-08-28] MEDS: Docusate 100mg/10ml Liq ORAL SCH (09:28)
[2018-08-28] MEDS: Donepezil 5mg Tab ORAL SCH (09:28)
[2018-08-28] MEDS: Levodopa/Carbidopa 25/100 tab ORAL SCH ×3 (09:29→17:50)
[2018-08-28] MEDS: Metoprolol 25mg tab ORAL SCH ×2 (09:30→20:27)
[2018-08-28] MEDS: Enoxaparin 40mg Inj SUBQ SCH (09:37)
[2018-08-28 12:00] VITALS: BP 132/68
--- NOTE | 2018-08-28 12:25 | Cardiology Report ---
APPROVED REPORT EXAM: Two-dimensional and M-mode echocardiogram with Doppler and color Doppler. INDICATION ENDOCARDITIS M-Mode DIMENSIONS IVSd0.7 (0.7-1.1cm)Left Atrium (MM)3.0 (1.6-4.0cm) LVDd6.2 (3.5-5.6cm)Aortic Root2.8 (2.0-3.7cm) PWd1.2 (0.7-1.1cm)Aortic Cusp Exc.1.7 (1.5-2.0cm) IVSs1.5 cm LVDs3.7 (2.5-4.0cm) PWs1.9 cm Normal left ventricular chamber size, systolic function and wall motion. Left ventricular ejection fraction estimated to be 55-60%. No evidence of left ventricular hypertrophy. Trivial pericardial effusion. All other cardiac chamber sizes are within normal limits. Mild aortic valve sclerosis with adequate cusp excursion. Mildly thickened mitral valve leaflets with normal excursion. Mild mitral annulus and aortic root calcification. Pulmonic valve not well visualized. IVC at size 2.0 cm with physiologic collapse. A color flow and spectral Doppler study was performed and revealed: No aortic insufficiency . Mitral diastolic velocities suggest reduced left ventricular relaxation c/w mild LV diastolic dysfunction (Grade I ). Mild mitral regurgitation. Trace tricuspid regurgitation. Tricuspid systolic velocities suggests peak right ventricular systolic pressure of 26 mmHg.
[2018-08-28 16:00] VITALS: BP 140/72
--- NOTE | 2018-08-28 16:50 | Diagnostic Imaging Report ---
Indication: Shortness of breath Technique: One view of the chest Comparison: 08/24/2018 Findings: Lungs and pleural spaces are clear. Heart size is normal. There are degenerative spondylosis changes. No significant interim change Impression: No acute process
--- NOTE | 2018-08-28 16:55 | Infectious Diseases Prog Note ---
Assessment/Plan Problems: (1) Sepsis due to coagulase-negative staphylococcal infection Assessment & Plan: source most likely his pressure wounds, continue vancomycin , pendng final culture, order echo to rule out vegetations, will repeat blood culture to confirm clearance (2) Aspiration pneumonia Assessment & Plan: will start ertapenem and continue vancomycin empirically , with aspiration precaution, keep HOB > 30 degree all the time (3) UTI (urinary tract infection) Assessment & Plan: due to ESBL producing Klebsiella pneumonia and proteus mirabilis , will start ertapenem and treat for two weeks . change edwards catheter if not done yet (4) COPD (chronic obstructive pulmonary disease) Assessment & Plan: due to the above , continue antibiotics, inhalers and nebulizer therapy (5) Diabetes 1.5, managed as type 2 Assessment & Plan: recommend tight glycemic control (6) Heel ulcer Assessment & Plan: on the left mainly, will order bone scan to rule out osteomyelitis , continue local wound care and dressing change as per hospital protocol Subjective Constitutional: Reports: no symptoms HEENT: Reports: no symptoms Respiratory: Reports: no symptoms Breasts: Reports: no symptoms Cardiovascular: Reports: no symptoms Gastrointestinal/Abdominal: Reports: no symptoms Genitourinary: Reports: no symptoms Neurologic: Reports: weakness Psychiatric: Reports: no symptoms Skin: Reports: ulcer Endocrine: Reports: no symptoms Hematologic: Reports: no symptoms Musculoskeletal: Reports: pain, stiffness Allergies: Coded Allergies: No Known Allergies (Unverified , 08/24/18) Objective Vital Signs Last 24 Hour Vital Signs Date Time Temp Pulse Resp B/P (MAP) Pulse Ox O2 Delivery O2 Flow Rate FiO2 08/28/18 16:00 98.0 80 20 140/72 (94) 99 08/28/18 13:01 Nasal Cannula 2.0 28 08/28/18 13:01 Nasal Cannula 2.0 28 08/28/18 12:00 98.2 75 18 132/68 (89) 99 08/28/18 09:30 76 134/74 08/28/18 09:00 Nasal Cannula 2.0 08/28/18 08:00 97.9 76 18 134/74 (94) 99 08/28/18 07:34 Nasal Cannula 2.0 28 08/28/18 07:34 Nasal Cannula 2.0 28 08/28/18 07:34 Nasal Cannula 2.0 28 08/28/18 07:33 83 22 98 Nasal Cannula 2.0 28 08/28/18 07:33 82 22 Nasal Cannula 2.0 28 08/28/18 04:00 97.2 69 19 119/70 (86) 97 08/28/18 02:07 Nasal Cannula 2.0 28 08/28/18 02:06 Nasal Cannula 2.0 28 08/28/18 00:00 97.3 74 20 113/67 (82) 99 08/27/18 21:00 Nasal Cannula 2.0 08/27/18 20:44 59 129/50 08/27/18 20:07 Nasal Cannula 2.0 28 08/27/18 20:07 Nasal Cannula 2.0 28 08/27/18 20:06 Nasal Cannula 2.0 28 08/27/18 20:06 Nasal Cannula 2.0 28 08/27/18 20:03 61 20 Nasal Cannula 2.0 28 08/27/18 20:00 98.0 59 21 128/69 (88) 99 Height (Feet): 6 Height (Inches): 0.00 Weight (Pounds): 160 General Appearance: no acute distress, cachetic HEENT: normocephalic, atraumatic, anicteric, mucous membranes moist, PERRL, pharynx normal, supple, no JVD Respiratory/Chest: chest wall non-tender, lungs clear, normal breath sounds, no respiratory distress, no accessory muscle use Cardiovascular: normal peripheral pulses, normal rate, regular rhythm, no gallop/murmur, no JVD Abdomen: normal bowel sounds, soft, non tender, no organomegaly, non distended , no mass, no scars Extremities: no cyanosis, no clubbing, other - left heel pressure wound Skin: no rash, no lesions, ulcers Neurologic/Psychiatric: alert, responsive Lymphatic: no neck adenopathy, no groin adenopathy Musculoskeletal: atrophy Current Medications Medications (Trade) Dose Ordered Sig/Santosh Route PRN Reason Start Time Stop Time Status Last Admin Dose Admin Acetaminophen (Tylenol) 650 mg Q4H PRN ORAL Mild Pain/Temp > 100.5 08/25/18 03:15 09/24/18 03:14 08/25/18 06:14 Albuterol Sulfate (Proventil) 2.5 mg Q6HRT HHN 08/25/18 19:00 08/30/18 18:59 08/26/18 20:07 Aspirin (ASA) 81 mg DAILY ORAL 08/25/18 09:00 09/24/18 08:59 08/28/18 09:28 Atorvastatin Calcium (Lipitor) 40 mg BEDTIME ORAL 08/25/18 21:00 09/24/18 20:59 08/27/18 20:43 Carbidopa/Levodopa (Sinemet 25/100) 1 tab THREE TIMES A DAY ORAL 08/25/18 09:00 09/24/18 08:59 08/28/18 14:34 Dextrose (Dextrose 50%) 25 ml Q30M PRN IV Hypoglycemia 08/25/18 02:45 09/24/18 02:44 Dextrose (Dextrose 50%) 50 ml Q30M PRN IV Hypoglycemia 08/25/18 02:45 09/24/18 02:44 Docusate Sodium (Colace) 100 mg DAILY ORAL 08/25/18 09:00 09/24/18 08:59 08/28/18 09:28 Donepezil HCl (Aricept) 5 mg DAILY ORAL 08/25/18 09:00 09/24/18 08:59 08/28/18 09:28 Enoxaparin Sodium (Lovenox) 40 mg DAILY SUBQ 08/25/18 09:00 09/24/18 08:59 08/28/18 09:37 Ertapenem 1 gm/ Sodium Chloride 55 ml @ 110 mls/hr Q24H IVPB 08/27/18 20:00 09/01/18 19:59 08/27/18 20:43 Famotidine (Pepcid) 20 mg TWICE A DAY ORAL 08/25/18 09:00 09/24/18 08:59 08/28/18 09:29 Insulin Aspart (NovoLOG) EVERY 6 HOURS SUBQ 08/25/18 06:00 09/24/18 05:59 08/28/18 06:05 Ipratropium [place] (Atrovent) 500 mcg Q6H PRN HHN Shortness of Breath 08/25/18 03:15 08/30/18 03:14 Metoprolol Tartrate (Lopressor) 25 mg EVERY 12 HOURS ORAL 08/25/18 09:00 09/24/18 08:59 08/28/18 09:30 Mupirocin (Bactroban Oint) 1 applic BID TOPIC 08/27/18 18:00 09/03/18 09:01 08/28/18 09:39 Ondansetron HCl (Zofran) 4 mg Q6H PRN IVP Nausea & Vomiting 08/25/18 02:45 09/24/18 02:44 Salmeterol Xinafoate/ Fluticasone (Advair 250/50 Diskus) 1 puffs EVERY 12 HOURS INH 08/25/18 09:00 09/24/18 08:59 Tamsulosin HCl (Flomax) 0.4 mg BEDTIME ORAL 08/25/18 21:00 09/24/18 20:59 08/27/18 20:43 Vancomycin HCl (Vanco rx to dose) 1 ea DAILY PRN MISC . 08/25/18 15:30 09/24/18 15:29 Vancomycin HCl/ Dextrose 250 ml @ 125 mls/hr Q24H IVPB 08/25/18 17:00 08/30/18 16:59 08/27/18 17:21 Zinc Sulfate (Zinc Sulfate) 220 mg DAILY ORAL 08/25/18 09:00 09/24/18 08:59 08/28/18 09:28 Zolpidem Tartrate (Ambien) 5 mg HSPRN PRN ORAL Insomnia 08/25/18 02:45 09/01/18 02:44 Vilma Cedeño M.D. Aug 28, 2018 16:55
--- NOTE | 2018-08-28 17:30 | Consultation ---
DATE OF CONSULTATION: 08/28/2018 INFECTIOUS DISEASE CONSULTATION: CONSULTING PHYSICIAN: Vilma Cedeño M.D. REFERRING PHYSICIAN: Jaxon Amaro M.D. REASON FOR CONSULTATION: Sepsis with coag-negative staph and aspiration pneumonia with UTI due to ESBL-producing Klebsiella pneumoniae and Proteus mirabilis. Recommendation for antibiotics treatment. HISTORY OF PRESENT ILLNESS: The patient is a 73-year-old male with past medical history of CVA, seizure disorder, and dementia who was brought into the emergency room at [facility] for evaluation of cough and fever for two days. The patient has been congested and had a temperature of 101.8. As per family, also he had swelling on his right hand. The patient was unable to provide any history at this point due to dementia. In the emergency room, he had a temperature of 101.8 with a pulse of 130 and blood pressure of 100/70 concerning for sepsis. Chest x-ray showed possible pneumonia. Urinalysis showed evidence of infection. So, the patient was started empirically on vancomycin and ceftriaxone by the admitting physician and the patient was admitted to the hospital for further evaluation and management. His blood culture today grew Staphylococcus haemolyticus from both sets and gram-positive cocci and his urine culture grew ESBL-producing Klebsiella pneumoniae and Proteus mirabilis. Infectious Disease consultation was requested for antibiotics treatment and further management. REVIEW OF SYSTEMS: Unable to obtain. The patient is a poor historian. Cannot provide any history. History was mainly obtained from the medical record. PAST MEDICAL HISTORY: Significant for hypertension, COPD, GERD, CVA, dementia, psych disorder, and heel pressure wounds. FAMILY HISTORY: Unable to obtain. SOCIAL HISTORY: The patient is contracted with dementia. No recent drugs, tobacco, or alcohol abuse. He is on disability. ALLERGIES: No known drug allergy. MEDICATIONS: The patient has been on vancomycin and ceftriaxone. For the rest of his medications, please refer to MAR. LABORATORY DATA: Showed white count of 5.9, hemoglobin of 9, and platelet count of 274. BUN of 17 and creatinine of 0.7. AST of 16, ALT of 20, and alkaline phosphatase of 46. Urinalysis showed +3 leukocyte esterase, wbc's 2 to 4, and many bacteria. MICROBIOLOGY: 1. Blood culture x2 growing Staphylococcus haemolyticus and gram-positive cocci from 1 set. 2. Urine culture grew ESBL-producing Klebsiella pneumoniae and Proteus mirabilis. IMAGIN. Chest x-ray, which showed normal finding. 2. Hand x-ray showed no evidence of acute fracture or traumatic malalignment. PHYSICAL EXAMINATION: VITAL SIGNS: Temperature 97.9, pulse 80, respirations 18, blood pressure 121/80, and saturation 96% on 2 liters nasal cannula. GENERAL: Elderly male, demented, and contracted mainly in the upper extremity, lying in bed, alert, not in acute distress. HEENT: Normocephalic and atraumatic. Pupils are reactive to light equally. Pale sclerae. Moist oral mucosa. No exudate or thrush. NECK: Supple. No lymphadenopathy. No JVD. CARDIOVASCULAR: Regular rate and rhythm. No murmur or gallop. LUNGS: Diminished breathing sounds at the bases with crackles. Normal breathing efforts. ABDOMEN: Soft, nontender, and nondistended. Normal bowel sounds. No hepatosplenomegaly or ascites. No rebound. PEG tube site looks intact with no bleeding or drainage. EXTREMITIES: He has left heel pressure wound with deep tissue injury. He had bilateral hand contraction. SKIN: The patient had large sacral deep tissue injury with cellulitis. He also had left heel pressure wound unstageable with eschar. ASSESSMENT AND RECOMMENDATION: 1. Sepsis due to coag-negative staph infection. Source most likely his pressure wounds. Continue vancomycin pending final blood culture and sensitivity. Order echo to rule out vegetation or repeat blood culture to confirm clearance. 2. Aspiration pneumonia. The patient will be started on ertapenem. He is already on Vanco. Continue both antibiotics for now with aspiration precaution. Keep head of bed more than 30-degrees all the time. 3. Urinary tract infection with ESBL-producing Klebsiella pneumoniae and Proteus mirabilis. We will start ertapenem and treat him for two weeks. Change [place] catheter if old or not done yet. 4. COPD due to the above. Continue antibiotics, inhalers, and nebulizer treatment. 5. Diabetes type 2. Recommend tight glycemic control to keep blood glucose between 100 to 140. 6. Left heel pressure wound, unstageable. Rule out underlying osteo. We will order bone scan of the left heel. Continue local wound care as per wound care service and hospital protocol. Thank you for the consult. ID will continue to follow. Vilma Cedeño M.D. DR: FABIO JOB#: [id number] CC:
[2018-08-28] MEDS: Vancomycin 1gm/D5W 275ml IVPB SCH ×2 (18:02)
[2018-08-28 20:00] VITALS: BP 125/74
[2018-08-28] MEDS: Atorvastatin 80mg tab ORAL SCH (20:25)
[2018-08-28] MEDS: Tamsulosin 0.4mg cap ORAL SCH (20:26)
[2018-08-28] MEDS: Ertapenem 1 GM in NS 55 ML IVPB SCH (20:28)
[2018-08-29] VITALS (8 sets, daily range): BP systolic 120–153; BP diastolic 50–102
[2018-08-29] MEDS: NovoLOG Insulin Flexpen SUBQ SCH ×5 (00:10→23:41)
[2018-08-29] MEDS: Albuterol ud Inhalation HHN SCH ×3 (01:30→13:00)
[2018-08-29] MEDS: Vancomycin 1gm/D5W 275ml IVPB SCH ×4 (01:31→11:33)
[2018-08-29] MEDS: Advair 250/50 Inhaler - 14 dose INH SCH ×2 (09:00→21:00)
[2018-08-29] MEDS: Docusate 100mg/10ml Liq ORAL SCH (09:25)
[2018-08-29] MEDS: Donepezil 5mg Tab ORAL SCH (09:25)
[2018-08-29] MEDS: Levodopa/Carbidopa 25/100 tab ORAL SCH ×2 (09:25→14:02)
[2018-08-29] MEDS: Zinc Sulfate 220mg cap ORAL SCH (09:25)
[2018-08-29] MEDS: Aspirin Baby 81mg ORAL SCH (09:26)
[2018-08-29] MEDS: Metoprolol 25mg tab ORAL SCH (09:26)
[2018-08-29] MEDS: Enoxaparin 40mg Inj SUBQ SCH (09:28)
--- NOTE | 2018-08-29 09:55 | Nephrology Progress Note ---
Assessment/Plan Problem List: (1) COPD (chronic obstructive pulmonary disease) Assessment & Plan: -better, on iv abx, sputum noted -cont iv abx for probable pneumonia -repeat cxr noted ICD Codes: J44.9 - Chronic obstructive pulmonary disease, unspecified SNOMED: 63172666 Qualifiers: Qualified Codes: J44.9 - Chronic obstructive pulmonary disease, unspecified (2) UTI (urinary tract infection) Assessment & Plan: -cultures noted, iv abx per id ICD Codes: N39.0 - Urinary tract infection, site not specified SNOMED: 33035954 Qualifiers: Qualified Codes: N39.0 - Urinary tract infection, site not specified (3) Pneumonia Assessment & Plan: -hhn, o2, f.u cxr, iv abx, sputum cultures ICD Codes: J18.9 - Pneumonia, unspecified organism SNOMED: 794702851 Qualifiers: (4) Diabetes 1.5, managed as type 2 Assessment & Plan: -follow bs, on ssi ICD Codes: E10.9 - Type 1 diabetes mellitus without complications SNOMED: 854469823 (5) Hypothyroid ICD Codes: E03.9 - Hypothyroidism, unspecified SNOMED: 57028330 Qualifiers: Qualified Codes: E03.9 - Hypothyroidism, unspecified (6) Dysphagia as late effect of cerebrovascular accident (CVA) Assessment & Plan: -cont tube feeds ICD Codes: I69.391 - Dysphagia following cerebral infarction SNOMED: 118139095 Assessment/Plan Bacteremia -cont vanco for now, ID eval appreciated -await bone scan and echo to r/o vegetation dc planning with 2 weeks iv abx. Subjective Date patient seen: Aug 29, 2018 Constitutional: Reports: no symptoms HEENT: Denies: no symptoms, eye pain, blurred vision, tearing, double vision, ear pain, ear discharge, nose pain, nose congestion, throat pain, throat swelling, mouth pain, mouth swelling, other Cardiovascular: Denies: no symptoms, chest pain, edema, irregular heart rate, lightheadedness, palpitations, syncope, other Respiratory: Reports: shortness of breath Gastrointestinal/Abdominal: Reports: poor appetite; Denies: no symptoms, abdomen distended, abdominal pain, black stools, tarry stools, blood in stool, constipated, diarrhea, difficulty swallowing, nausea, poor fluid intake, rectal bleeding, vomiting, other Genitourinary: Reports: frequency Endocrine: Denies: no symptoms, excessive sweating, flushing, intolerance to cold, intolerance to heat, increased hunger, increased thirst, increased urine, unexplained weight gain, unexplained weight loss, other Allergies: Coded Allergies: No Known Allergies (Unverified , 08/24/18) Objective Last 24 Hour Vital Signs Date Time Temp Pulse Resp B/P (MAP) Pulse Ox O2 Delivery O2 Flow Rate FiO2 08/29/18 09:26 76 120/68 08/29/18 08:14 Nasal Cannula 2.0 28 08/29/18 08:14 Nasal Cannula 2.0 28 08/29/18 08:13 Nasal Cannula 2.0 28 08/29/18 08:13 Nasal Cannula 2.0 28 08/29/18 08:12 91 20 Nasal Cannula 2.0 28 08/29/18 04:00 97.5 72 17 122/77 (92) 99 08/29/18 01:41 Nasal Cannula 2.0 28 08/29/18 01:41 Nasal Cannula 2.0 28 08/29/18 00:00 97.5 68 18 138/79 (98) 96 08/28/18 21:00 Nasal Cannula 2.0 08/28/18 20:27 75 125/74 08/28/18 20:00 98.1 75 17 125/74 (91) 98 08/28/18 19:17 Nasal Cannula 2.0 28 08/28/18 19:17 Nasal Cannula 2.0 28 08/28/18 19:17 Nasal Cannula 2.0 28 08/28/18 19:17 Nasal Cannula 2.0 28 08/28/18 19:16 76 19 Nasal Cannula 2.0 28 08/28/18 16:00 98.0 80 20 140/72 (94) 99 08/28/18 13:01 Nasal Cannula 2.0 28 08/28/18 13:01 Nasal Cannula 2.0 28 08/28/18 12:00 98.2 75 18 132/68 (89) 99 Intake and Output 08/28/18 08/29/18 19:00 07:00 Intake Total 455 ml 1585.000 ml Output Total 1000 ml 500 ml Balance -545 ml 1085.000 ml Intake Free Water 210 ml IV Total 660.000 ml Tube Feeding 455 ml 715 ml Output Urine Total 1000 ml 500 ml # Bowel Movements 2 Laboratory Tests 08/28/18 16:30: Vancomycin Level Trough < 2.0L Height (Feet): 6 Height (Inches): 0.00 Weight (Pounds): 152 General Appearance: no apparent distress, lethargic, confused EENT: PERRL/EOMI, normal ENT inspection Neck: supple, limited range of motion Cardiovascular: normal rate Respiratory/Chest: decreased breath sounds Abdomen: normal bowel sounds, soft Pelvis: no masses Edema: trace edema Jaxon Amaro M.D. Aug 29, 2018 09:55
[2018-08-29] MEDS ORDERED: Metoprolol Tartrate 50mg tab ORAL SCH ×2 (15:58→21:00)
[2018-08-29] MEDS ORDERED: LORazepam Inj 2mg/ml 1ml IV PRN (16:00)
[2018-08-29] MEDS ORDERED: Metoprolol Succinate XL 50mg tab ORAL ONE (16:00)
--- NOTE | 2018-08-29 16:48 | Infectious Diseases Prog Note ---
Assessment/Plan Problems: (1) Sepsis due to coagulase-negative staphylococcal infection Assessment & Plan: source most likely his pressure wounds, continue vancomycin , pendng final culture, await echo to rule out vegetations, repeated blood culture to confirm clearance is pending (2) Aspiration pneumonia Assessment & Plan: continue ertapenem and vancomycin empirically , with aspiration precaution, keep HOB > 30 degree all the time (3) UTI (urinary tract infection) Assessment & Plan: due to ESBL producing Klebsiella pneumonia and proteus mirabilis , will start ertapenem and treat for two weeks . change edwards catheter if not done yet (4) COPD (chronic obstructive pulmonary disease) Assessment & Plan: due to the above , continue antibiotics, inhalers and nebulizer therapy (5) Diabetes 1.5, managed as type 2 Assessment & Plan: recommend tight glycemic control (6) Heel ulcer Assessment & Plan: on the left mainly, await bone scan to rule out osteomyelitis , continue local wound care and dressing change as per hospital protocol Subjective Constitutional: Reports: no symptoms HEENT: Reports: no symptoms Respiratory: Reports: dry cough Breasts: Reports: no symptoms Cardiovascular: Reports: no symptoms Gastrointestinal/Abdominal: Reports: no symptoms Genitourinary: Reports: no symptoms Neurologic: Reports: no symptoms Psychiatric: Reports: no symptoms Skin: Reports: no symptoms Endocrine: Reports: no symptoms Hematologic: Reports: no symptoms Musculoskeletal: Reports: no symptoms Allergies: Coded Allergies: No Known Allergies (Unverified , 08/24/18) Subjective He was awake and comfortable, no fever or chills, no cough or SOB, no diarrhea Objective Vital Signs Last 24 Hour Vital Signs Date Time Temp Pulse Resp B/P (MAP) Pulse Ox O2 Delivery O2 Flow Rate FiO2 08/29/18 16:01 144 150/92 08/29/18 13:17 Nasal Cannula 2.0 28 08/29/18 13:17 Nasal Cannula 2.0 28 08/29/18 12:00 97.9 73 18 122/71 (88) 98 08/29/18 09:26 76 120/68 08/29/18 09:00 Nasal Cannula 2.0 08/29/18 08:14 Nasal Cannula 2.0 28 08/29/18 08:14 Nasal Cannula 2.0 28 08/29/18 08:13 Nasal Cannula 2.0 28 08/29/18 08:13 Nasal Cannula 2.0 28 08/29/18 08:12 91 20 Nasal Cannula 2.0 28 08/29/18 08:00 98.0 76 18 120/68 (85) 99 08/29/18 04:00 97.5 72 17 122/77 (92) 99 08/29/18 01:41 Nasal Cannula 2.0 28 08/29/18 01:41 Nasal Cannula 2.0 28 08/29/18 00:00 97.5 68 18 138/79 (98) 96 08/28/18 21:00 Nasal Cannula 2.0 08/28/18 20:27 75 125/74 08/28/18 20:00 98.1 75 17 125/74 (91) 98 08/28/18 19:17 Nasal Cannula 2.0 28 08/28/18 19:17 Nasal Cannula 2.0 28 08/28/18 19:17 Nasal Cannula 2.0 28 08/28/18 19:17 Nasal Cannula 2.0 28 08/28/18 19:16 76 19 Nasal Cannula 2.0 28 Height (Feet): 6 Height (Inches): 0.00 Weight (Pounds): 152 General Appearance: WD/WN, cachetic HEENT: normocephalic, atraumatic, anicteric, mucous membranes moist, PERRL Respiratory/Chest: chest wall non-tender, no respiratory distress, no accessory muscle use, decreased breath sounds, crackles/rales Cardiovascular: normal peripheral pulses, normal rate, regular rhythm, no gallop/murmur, no JVD Abdomen: normal bowel sounds, soft, non tender, no organomegaly, non distended , no mass, no scars Extremities: no cyanosis, no clubbing Skin: no rash, no lesions, no ulcers Neurologic/Psychiatric: alert, responsive Lymphatic: no neck adenopathy, no groin adenopathy Musculoskeletal: normal muscle bulk, no effusion Current Medications Medications (Trade) Dose Ordered Sig/Santosh Route PRN Reason Start Time Stop Time Status Last Admin Dose Admin Acetaminophen (Tylenol) 650 mg Q4H PRN ORAL Mild Pain/Temp > 100.5 08/25/18 03:15 09/24/18 03:14 08/29/18 16:01 Albuterol Sulfate (Proventil) 2.5 mg Q6HRT HHN 08/25/18 19:00 08/30/18 18:59 08/26/18 20:07 Aspirin (ASA) 81 mg DAILY ORAL 08/25/18 09:00 09/24/18 08:59 08/29/18 09:26 Atorvastatin Calcium (Lipitor) 40 mg BEDTIME ORAL 08/25/18 21:00 09/24/18 20:59 08/28/18 20:25 Carbidopa/Levodopa (Sinemet 25/100) 1 tab THREE TIMES A DAY ORAL 08/25/18 09:00 09/24/18 08:59 08/29/18 14:02 Dextrose (Dextrose 50%) 25 ml Q30M PRN IV Hypoglycemia 08/25/18 02:45 09/24/18 02:44 Dextrose (Dextrose 50%) 50 ml Q30M PRN IV Hypoglycemia 08/25/18 02:45 09/24/18 02:44 Docusate Sodium (Colace) 100 mg DAILY ORAL 08/25/18 09:00 09/24/18 08:59 08/29/18 09:25 Donepezil HCl (Aricept) 5 mg DAILY ORAL 08/25/18 09:00 09/24/18 08:59 08/29/18 09:25 Enoxaparin Sodium (Lovenox) 40 mg DAILY SUBQ 08/25/18 09:00 09/24/18 08:59 08/29/18 09:28 Ertapenem 1 gm/ Sodium Chloride 55 ml @ 110 mls/hr Q24H IVPB 08/27/18 20:00 09/01/18 19:59 08/28/18 20:28 Famotidine (Pepcid) 20 mg TWICE A DAY ORAL 08/25/18 09:00 09/24/18 08:59 08/29/18 09:25 Insulin Aspart (NovoLOG) EVERY 6 HOURS SUBQ 08/25/18 06:00 09/24/18 05:59 08/29/18 05:49 Ipratropium Perry (Atrovent) 500 mcg Q6H PRN HHN Shortness of Breath 08/25/18 03:15 08/30/18 03:14 Lorazepam (Ativan 2mg/ml 1ml) 0.5 mg Q4H PRN IV For Anxiety 08/29/18 16:00 09/05/18 15:59 Metoprolol Tartrate (Lopressor) 50 mg ONCE ORAL 08/29/18 15:58 08/29/18 16:58 08/29/18 16:01 Metoprolol Tartrate (Lopressor) 50 mg Q12HR ORAL 08/29/18 21:00 09/28/18 20:59 Mupirocin (Bactroban Oint) 1 applic BID TOPIC 08/27/18 18:00 09/03/18 09:01 08/29/18 09:28 Ondansetron HCl (Zofran) 4 mg Q6H PRN IVP Nausea & Vomiting 08/25/18 02:45 09/24/18 02:44 Salmeterol Xinafoate/ Fluticasone (Advair 250/50 Diskus) 1 puffs EVERY 12 HOURS INH 08/25/18 09:00 09/24/18 08:59 Tamsulosin HCl (Flomax) 0.4 mg BEDTIME ORAL 08/25/18 21:00 09/24/18 20:59 08/28/18 20:26 Vancomycin HCl (Vanco rx to dose) 1 ea DAILY PRN MISC . 08/25/18 15:30 09/24/18 15:29 Vancomycin HCl 1 gm/Dextrose 275 ml @ 183.708 mls/hr Q8H IVPB 08/28/18 18:00 09/02/18 17:59 08/29/18 11:33 Zinc Sulfate (Zinc Sulfate) 220 mg DAILY ORAL 08/25/18 09:00 09/24/18 08:59 08/29/18 09:25 Zolpidem Tartrate (Ambien) 5 mg HSPRN PRN ORAL Insomnia 08/25/18 02:45 09/01/18 02:44 Vilma Cedeño M.D. Aug 29, 2018 16:48
[2018-08-29] MEDS ORDERED: Metoprolol Succinate XL 50mg tab ORAL SCH (18:00)
[2018-08-29] MEDS ORDERED: dilTIAZem HCl 50mg/10ml Inj IVP ONE ×2 (18:15)
[2018-08-29] MEDS ORDERED: Acetaminophen 650 MG SUPP RECTAL PRN ×4 (18:15→22:15)
[2018-08-29 18:48] LABS: ANION GAP 11 mmol/L (5-15); BLOOD UREA NITROGEN 18 mg/dL (7-18); CALCIUM 9.1 MG/DL (8.5-10.1); CARBON DIOXIDE 28 MMOL/L (21-32); CHLORIDE 106 MMOL/L (98-107); CREATININE 1.3 MG/DL (0.55-1.30); POTASSIUM 4.9 MMOL/L (3.5-5.1); SODIUM 145 MMOL/L (136-145)
[2018-08-29 19:04] LABS: ALANINE AMINOTRANSFERASE 11 U/L (12-78); ALBUMIN 3.1 G/DL (3.4-5.0); ALBUMIN/GLOBULIN RATIO 0.7 (1.0-2.7); ALKALINE PHOSPHATASE 63 U/L (46-116); ASPARTATE AMINO TRANSFERASE 28 U/L (15-37); BILIRUBIN,TOTAL 0.3 MG/DL (0.2-1.0)
[2018-08-29 19:36] LABS: HEMATOCRIT 35.8 % (42.0-52.0); HEMOGLOBIN 11.6 G/DL (14.2-18.0); MEAN CORPUSCULAR VOLUME 88 FL (80-99); PLATELET COUNT 446 K/UL (150-450); RED BLOOD COUNT 4.09 M/UL (4.70-6.10); RED CELL DISTRIBUTION WIDTH 12.1 % (11.6-14.8)
[2018-08-29 19:43] LABS: WHITE BLOOD COUNT 48.1 K/UL (4.8-10.8)
[2018-08-29] MEDS ORDERED: dilTIAZem HCl 50mg/10ml Inj IVP SCH (19:45)
[2018-08-29] MEDS ORDERED: Ertapenem 1 GM in NS 55 ML IVPB SCH (20:00)
[2018-08-29] MEDS: Metoprolol Tartrate 50mg tab ORAL SCH (20:11)
[2018-08-29] MEDS ORDERED: Atorvastatin 80mg tab ORAL SCH (21:00)
[2018-08-29] MEDS ORDERED: Tamsulosin 0.4mg cap ORAL SCH (21:00)
[2018-08-29] MEDS ORDERED: Ipratropium 0.02% Inh Soln 2.5ml UD HHN PRN (21:15)
--- NOTE | 2018-08-29 21:26 | Consultation ---
Consult Note Consult Note 73-year-old male presents with significant encephalopathy patient is G-tube dependent and has had worsening shortness of breath significant tachycardia with increasing respiratory distress. The patient noted to have a and was transferred to the [facility]. I was called to assist with his overall respiratory status. The care was discussed with the nursing staff. The patient noted to have worsening yellow secretions overnight. The patient is altered and unable to give any history. Patient seen earlier and due to respiratory distress and tachypnea was started on BiPAP. The patient however is oxygenating fairly well. Past medical history COPD diabetes hypothyroidism dysphasia CVA aspiration sepsis heel ulcer Medications and allergies reviewed and reconciled Social history patient is a detention patient and is essentially disabled Physical examination Ill-appearing male who appears to be somewhat tachypneic Vital signs heart rate 129 blood pressure 140/72 temperature 98.1 respiratory rate 29 oxygen saturation 99% HEENT reduced gag neck supple lungs with scattered rhonchi moderate air entry cardiac exam normal S1-S2 tachycardic Abdomen is soft nontender extremities no clear cyanosis skin exam noted neurologically with reduced mental status Labs Test 08/27/18 06:40 08/28/18 16:30 08/29/18 16:50 08/29/18 17:16 White Blood Count 5.9 K/UL (4.8-10.8) Red Blood Count 3.14 M/UL (4.70-6.10) Hemoglobin 9.0 G/DL (14.2-18.0) Hematocrit 27.4 % (42.0-52.0) Mean Corpuscular Volume 87 FL (80-99) Mean Corpuscular Hemoglobin 28.8 PG (27.0-31.0) Mean Corpuscular Hemoglobin Concent 33.0 G/DL (32.0-36.0) Red Cell Distribution Width 12.5 % (11.6-14.8) Platelet Count 274 K/UL (150-450) Mean Platelet Volume 7.3 FL (6.5-10.1) Neutrophils (%) (Auto) 61.2 % (45.0-75.0) Lymphocytes (%) (Auto) 24.1 % (20.0-45.0) Monocytes (%) (Auto) 8.8 % (1.0-10.0) Eosinophils (%) (Auto) 5.2 % (0.0-3.0) Basophils (%) (Auto) 0.8 % (0.0-2.0) Sodium Level 146 MMOL/L (136-145) Potassium Level 3.8 MMOL/L (3.5-5.1) Chloride Level 110 MMOL/L (98-107) Carbon Dioxide Level 28 MMOL/L (21-32) Anion Gap 8 mmol/L (5-15) Blood Urea Nitrogen 17 mg/dL (7-18) Creatinine 0.7 MG/DL (0.55-1.30) Estimat Glomerular Filtration Rate mL/min (>60) Glucose Level 134 MG/DL (74-106) Calcium Level 8.5 MG/DL (8.5-10.1) Magnesium Level 2.1 MG/DL (1.8-2.4) Thyroid Stimulating Hormone (TSH) 0.134 uiU/mL (0.358-3.740) Free Thyroxine 1.20 NG/DL (0.76-1.46) Vancomycin Level Trough < 2.0 ug/mL (5.0-12.0) 23.5 ug/mL (5.0-12.0) Arterial Blood pH 7.005 (7.350-7.450) Arterial Blood Partial Pressure CO2 89.7 mmHg (35.0-45.0) Arterial Blood Partial Pressure O2 101.7 mmHg (75.0-100.0) Arterial Blood HCO3 21.9 mmol/L (22.0-26.0) Arterial Blood Oxygen Saturation 93.4 % (95-100) Arterial Blood Base Excess -10.8 (-2-2) Arun Test Positive Test 08/29/18 18:04 08/29/18 18:10 08/29/18 19:00 Arterial Blood pH 7.259 (7.350-7.450) Arterial Blood Partial Pressure CO2 53.7 mmHg (35.0-45.0) Arterial Blood Partial Pressure O2 344.7 mmHg (75.0-100.0) Arterial Blood HCO3 23.5 mmol/L (22.0-26.0) Arterial Blood Oxygen Saturation 99.5 % (95-100) Arterial Blood Base Excess -4.0 (-2-2) Arun Test Positive Sodium Level 145 MMOL/L (136-145) Potassium Level 4.9 MMOL/L (3.5-5.1) Chloride Level 106 MMOL/L (98-107) Carbon Dioxide Level 28 MMOL/L (21-32) Anion Gap 11 mmol/L (5-15) Blood Urea Nitrogen 18 mg/dL (7-18) Creatinine 1.3 MG/DL (0.55-1.30) Estimat Glomerular Filtration Rate mL/min (>60) Glucose Level 118 MG/DL (74-106) Lactic Acid Level 4.30 mmol/L (0.4-2.0) Calcium Level 9.1 MG/DL (8.5-10.1) Total Bilirubin 0.3 MG/DL (0.2-1.0) Aspartate Amino Transf (AST/SGOT) 28 U/L (15-37) Alanine Aminotransferase (ALT/SGPT) 11 U/L (12-78) Alkaline Phosphatase 63 U/L (46-116) Troponin I 0.038 ng/mL (0.000-0.056) Total Protein 7.6 G/DL (6.4-8.2) Albumin 3.1 G/DL (3.4-5.0) Globulin 4.5 g/dL Albumin/Globulin Ratio 0.7 (1.0-2.7) White Blood Count 48.1 K/UL (4.8-10.8) Red Blood Count 4.09 M/UL (4.70-6.10) Hemoglobin 11.6 G/DL (14.2-18.0) Hematocrit 35.8 % (42.0-52.0) Mean Corpuscular Volume 88 FL (80-99) Mean Corpuscular Hemoglobin 28.4 PG (27.0-31.0) Mean Corpuscular Hemoglobin Concent 32.4 G/DL (32.0-36.0) Red Cell Distribution Width 12.1 % (11.6-14.8) Platelet Count 446 K/UL (150-450) Mean Platelet Volume 6.7 FL (6.5-10.1) Neutrophils (%) (Auto) % (45.0-75.0) Lymphocytes (%) (Auto) % (20.0-45.0) Monocytes (%) (Auto) % (1.0-10.0) Eosinophils (%) (Auto) % (0.0-3.0) Basophils (%) (Auto) % (0.0-2.0) Differential Total Cells Counted 100 Neutrophils % (Manual) 78 % (45-75) Lymphocytes % (Manual) 8 % (20-45) Monocytes % (Manual) 7 % (1-10) Eosinophils % (Manual) 2 % (0-3) Basophils % (Manual) 1 % (0-2) Band Neutrophils 4 % (0-8) Platelet Estimate Adequate Platelet Morphology Normal Polychromasia 1+ Hypochromasia 1+ Anisocytosis 1+ Impression Respiratory distress Mild hypoxemia Tachycardia Leukocytosis Possible sepsis Anemia Acute respiratory failure with noted respiratory acidosis Lactic acidemia Mild protein calorie malnutrition Acute encephalopathy Plan IV antibiotics as per infectious disease BiPAP management and monitor his acid-base status Monitor oxygen needs Stat duplex of the lower extremities DVT prophylaxis Nebulized therapy Patient is a DO NOT RESUSCITATE and will monitor closely for change Prognosis is guarded at present impression, plan, and exam edited and reviewed in detail care discussed with Hernandez Yin MD Aug 29, 2018 21:26
[2018-08-29 21:55] LABS: HEMATOCRIT 32.6 % (42.0-52.0); HEMOGLOBIN 10.8 G/DL (14.2-18.0); MEAN CORPUSCULAR VOLUME 88 FL (80-99); PLATELET COUNT 353 K/UL (150-450); RED BLOOD COUNT 3.73 M/UL (4.70-6.10); RED CELL DISTRIBUTION WIDTH 12.4 % (11.6-14.8)
[2018-08-29 21:59] LABS: WHITE BLOOD COUNT 29.8 K/UL (4.8-10.8)
[2018-08-29] MEDS ORDERED: Vancomycin 1250mg/D5W 250ml IVPB SCH (23:00)
[2018-08-29] MEDS: Meropenem 1 GM in NS 55 ML IVPB SCH (23:00)
[2018-08-29] MEDS ORDERED: VANCOMYCIN IVPB SCH (23:00)
[2018-08-29] MEDS ORDERED: [UNRECOGNIZED DRUG - OTHER] IVPB SCH (23:00)
[2018-08-30] VITALS: BP 113/76
[2018-08-30] MEDS ORDERED: Piperacillin/Tazobactam 3.375 GM in NS 110 ML IVPB SCH ×4
[2018-08-30] MEDS: Albuterol ud Inhalation HHN SCH ×4 (01:04→20:40)
[2018-08-30] MEDS ORDERED: Zolpidem 5mg tab ORAL PRN ×2 (02:45→21:00)
[2018-08-30 04:00] VITALS: BP 120/69
[2018-08-30] MEDS: NovoLOG Insulin Flexpen SUBQ SCH ×3 (05:24→17:40)
[2018-08-30] MEDS: Meropenem 1 GM in NS 55 ML IVPB SCH ×3 (05:24→22:25)
[2018-08-30 05:28] LABS: HEMATOCRIT 31.1 % (42.0-52.0); HEMOGLOBIN 10.6 G/DL (14.2-18.0); MEAN CORPUSCULAR VOLUME 86 FL (80-99); PLATELET COUNT 337 K/UL (150-450); RED BLOOD COUNT 3.61 M/UL (4.70-6.10); RED CELL DISTRIBUTION WIDTH 12.4 % (11.6-14.8)
[2018-08-30 05:41] LABS: WHITE BLOOD COUNT 24.8 K/UL (4.8-10.8)
[2018-08-30 05:46] LABS: ANION GAP 11 mmol/L (5-15); BLOOD UREA NITROGEN 33 mg/dL (7-18); CALCIUM 8.3 MG/DL (8.5-10.1); CARBON DIOXIDE 24 MMOL/L (21-32); CHLORIDE 106 MMOL/L (98-107); CREATININE 1.2 MG/DL (0.55-1.30); POTASSIUM 4.7 MMOL/L (3.5-5.1); SODIUM 141 MMOL/L (136-145)
[2018-08-30 08:00] VITALS: BP 124/60
[2018-08-30] MEDS: LORazepam Inj 2mg/ml 1ml IV PRN ×3 (08:04→22:01)
--- NOTE | 2018-08-30 08:17 | Pulmonology Progress Note ---
Assessment/Plan Assessment/Plan Impression Respiratory distress Mild hypoxemia Tachycardia Leukocytosis Possible sepsis Anemia Acute respiratory failure with noted respiratory acidosis Lactic acidemia Mild protein calorie malnutrition Acute encephalopathy Plan IV antibiotics as per infectious disease BiPAP management and monitor his acid-base status; may dc if improved Monitor oxygen needs await duplex of the lower extremities DVT prophylaxis Nebulized therapy Patient is a DO NOT RESUSCITATE and will monitor closely for change Prognosis is guarded impression, plan, and exam edited and reviewed in detail care discussed with RN Subjective ROS Limited/Unobtainable: Yes Allergies: Coded Allergies: No Known Allergies (Unverified , 08/24/18) Subjective Hemodynamics improved Patient on BiPAP and overall appears to be comfortable Heart rate improved Blood pressure stable Objective Last 24 Hour Vital Signs Date Time Temp Pulse Resp B/P (MAP) Pulse Ox O2 Delivery O2 Flow Rate FiO2 08/30/18 07:54 71 19 99 Bi-pap 30 08/30/18 07:47 89 31 97 Facial 30 08/30/18 07:45 79 31 97 Bi-pap 30 08/30/18 04:56 72 18 100 Facial 30 08/30/18 04:00 97.7 76 21 120/69 (86) 99 08/30/18 03:28 74 08/30/18 03:21 77 20 100 Facial 30 08/30/18 01:12 78 22 100 Bi-pap 30 08/30/18 01:03 77 24 100 Bi-pap 30 08/30/18 01:00 76 25 100 Facial 30 08/30/18 00:00 98.4 78 22 113/76 (88) 100 08/29/18 23:22 74 08/29/18 23:01 79 21 100 Facial 30 08/29/18 21:18 82 25 98 Facial 40 08/29/18 21:00 Nasal Cannula 2.0 08/29/18 20:11 129 148/72 08/29/18 20:00 98.1 129 29 148/72 (97) 99 08/29/18 19:52 Bi-pap 100 08/29/18 19:51 Bi-pap 100 08/29/18 19:51 Bi-pap 100 08/29/18 19:51 Bi-pap 100 08/29/18 19:50 142 30 Bi-pap 100 08/29/18 19:45 129 148/72 08/29/18 19:20 141 28 98 Facial 100 08/29/18 19:18 143 08/29/18 16:45 92 08/29/18 16:31 102.2 08/29/18 16:30 102.2 130 26 135/50 (78) 82 08/29/18 16:15 101.8 135 25 150/102 (118) 94 08/29/18 16:01 144 150/92 08/29/18 16:00 99.5 141 24 153/81 (105) 96 08/29/18 13:17 Nasal Cannula 2.0 28 08/29/18 13:17 Nasal Cannula 2.0 28 08/29/18 12:00 97.9 73 18 122/71 (88) 98 08/29/18 09:26 76 120/68 08/29/18 09:00 Nasal Cannula 2.0 Intake and Output 08/29/18 08/30/18 18:59 06:59 Intake Total 1745 ml Output Total 800 ml 400 ml Balance -800 ml 1345 ml Intake Free Water 500 ml IV Total 465 ml Tube Feeding 780 ml Output Urine Total 800 ml 400 ml Objective WDWN on BIPAP withdrawn clear breath sounds bilaterally without rhonchi or wheeze [id number] without MRG NABS nontender no HSM no CC altered LOC reviewed and examined Microbiology Date/Time Source Procedure Growth Status 08/28/18 19:35 Blood Blood Culture - Preliminary NO GROWTH AFTER 24 HOURS Resulted 08/28/18 19:20 Blood Blood Culture - Preliminary NO GROWTH AFTER 24 HOURS Resulted Laboratory Tests 08/29/18 16:50: Vancomycin Level Trough 23.5H 08/29/18 17:16: Arterial Blood pH 7.005*L, Arterial Blood Partial Pressure CO2 89.7*H, Arterial Blood Partial Pressure O2 101.7H, Arterial Blood HCO3 21.9L, Arterial Blood Oxygen Saturation 93.4L, Arterial Blood Base Excess -10.8*L, Arun Test Positive 08/29/18 18:04: Arterial Blood pH 7.259L, Arterial Blood Partial Pressure CO2 53.7H, Arterial Blood Partial Pressure O2 344.7H, Arterial Blood HCO3 23.5, Arterial Blood Oxygen Saturation 99.5, Arterial Blood Base Excess -4.0L, Arun Test Positive 08/29/18 18:10: Sodium Level 145, Potassium Level 4.9, Chloride Level 106, Carbon Dioxide Level 28, Anion Gap 11, Blood Urea Nitrogen 18, Creatinine 1.3, Estimat Glomerular Filtration Rate , Glucose Level 118H, Lactic Acid Level 4.30H, Calcium Level 9.1 , Total Bilirubin 0.3, Aspartate Amino Transf (AST/SGOT) 28, Alanine Aminotransferase (ALT/SGPT) 11L, Alkaline Phosphatase 63, Troponin I 0.038, Total Protein 7.6, Albumin 3.1L, Globulin 4.5, Albumin/Globulin Ratio 0.7L 08/29/18 19:00: White Blood Count 48.1*H, Red Blood Count 4.09L, Hemoglobin 11.6L, Hematocrit 35.8L, Mean Corpuscular Volume 88, Mean Corpuscular Hemoglobin 28.4, Mean Corpuscular Hemoglobin Concent 32.4, Red Cell Distribution Width 12.1, Platelet Count 446, Mean Platelet Volume 6.7, Neutrophils (%) (Auto) , Lymphocytes (%) ( Auto) , Monocytes (%) (Auto) , Eosinophils (%) (Auto) , Basophils (%) (Auto) , Differential Total Cells Counted 100, Neutrophils % (Manual) 78H, Lymphocytes % (Manual) 8L, Monocytes % (Manual) 7, Eosinophils % (Manual) 2, Basophils % ( Manual) 1, Band Neutrophils 4, Platelet Estimate Adequate, Platelet Morphology Normal, Polychromasia 1+, Hypochromasia 1+, Anisocytosis 1+ 08/29/18 20:53: White Blood Count 29.8*H, Red Blood Count 3.73L, Hemoglobin 10.8L, Hematocrit 32.6L, Mean Corpuscular Volume 88, Mean Corpuscular Hemoglobin 28.9, Mean Corpuscular Hemoglobin Concent 33.0, Red Cell Distribution Width 12.4, Platelet Count 353, Mean Platelet Volume 6.6, Neutrophils (%) (Auto) , Lymphocytes (%) ( Auto) , Monocytes (%) (Auto) , Eosinophils (%) (Auto) , Basophils (%) (Auto) , Differential Total Cells Counted 100, Neutrophils % (Manual) 85H, Lymphocytes % (Manual) 6L, Monocytes % (Manual) 4, Eosinophils % (Manual) 0, Basophils % ( Manual) 0, Band Neutrophils 5, Platelet Estimate Adequate, Platelet Morphology Normal, Polychromasia 1+, Hypochromasia 1+, Anisocytosis 1+, Lactic Acid Level 1.00 08/30/18 03:30: White Blood Count 24.8*H, Red Blood Count 3.61L, Hemoglobin 10.6L, Hematocrit 31.1L, Mean Corpuscular Volume 86, Mean Corpuscular Hemoglobin 29.3, Mean Corpuscular Hemoglobin Concent 34.1, Red Cell Distribution Width 12.4, Platelet Count 337, Mean Platelet Volume 7.2, Neutrophils (%) (Auto) , Lymphocytes (%) ( Auto) , Monocytes (%) (Auto) , Eosinophils (%) (Auto) , Basophils (%) (Auto) , Differential Total Cells Counted 100, Neutrophils % (Manual) 89H, Lymphocytes % (Manual) 9L, Monocytes % (Manual) 2, Eosinophils % (Manual) 0, Basophils % ( Manual) 0, Band Neutrophils 0, Platelet Estimate Adequate, Platelet Morphology Normal, Hypochromasia 1+, Anisocytosis 1+, Sodium Level 141, Potassium Level 4.7 , Chloride Level 106, Carbon Dioxide Level 24, Anion Gap 11, Blood Urea Nitrogen 33H, Creatinine 1.2, Estimat Glomerular Filtration Rate , Glucose Level 118H, Calcium Level 8.3L, Magnesium Level 2.4 Current Medications Medications (Trade) Dose Ordered Sig/Santosh Route PRN Reason Start Time Stop Time Status Last Admin Dose Admin Acetaminophen (Tylenol) 650 mg Q4H PRN ORAL Mild Pain/Temp > 100.5 08/29/18 23:15 09/24/18 03:14 Acetaminophen (Tylenol) 650 mg Q4H PRN RECTAL Mild Pain/Temp > 100.5 08/29/18 22:15 09/28/18 18:14 Albuterol Sulfate (Proventil) 2.5 mg Q6HRT HHN 08/30/18 01:00 08/30/18 18:59 08/30/18 07:44 Aspirin (ASA) 81 mg DAILY ORAL 08/30/18 09:00 09/24/18 08:59 Atorvastatin Calcium (Lipitor) 40 mg BEDTIME ORAL 08/29/18 21:00 09/24/18 20:59 08/29/18 20:10 Carbidopa/Levodopa (Sinemet 25/100) 1 tab THREE TIMES A DAY ORAL 08/30/18 09:00 09/24/18 08:59 Dextrose (Dextrose 50%) 25 ml Q30M PRN IV Hypoglycemia 08/29/18 19:45 09/24/18 02:44 Dextrose (Dextrose 50%) 50 ml Q30M PRN IV Hypoglycemia 08/29/18 19:45 09/24/18 02:44 Docusate Sodium (Colace) 100 mg DAILY ORAL 08/30/18 09:00 09/24/18 08:59 Donepezil HCl (Aricept) 5 mg DAILY ORAL 08/30/18 09:00 09/24/18 08:59 Enoxaparin Sodium (Lovenox) 40 mg DAILY SUBQ 08/30/18 09:00 09/24/18 08:59 Famotidine (Pepcid) 20 mg TWICE A DAY ORAL 08/30/18 09:00 09/24/18 08:59 Insulin Aspart (NovoLOG) EVERY 6 HOURS SUBQ 08/30/18 00:00 09/24/18 05:59 08/30/18 05:24 Linezolid 300 ml @ 300 mls/hr Q12HR IVPB 08/29/18 23:00 09/05/18 22:59 08/29/18 23:39 Lorazepam (Ativan 2mg/ml 1ml) 0.5 mg Q4H PRN IV For Anxiety 08/29/18 20:00 09/05/18 15:59 08/30/18 08:10 Meropenem 1 gm/ Sodium Chloride 55 ml @ 110 mls/hr Q8HR IVPB 08/29/18 22:15 09/03/18 22:14 08/30/18 05:24 Metoprolol Tartrate (Lopressor) 50 mg Q12HR ORAL 08/29/18 21:00 09/28/18 20:59 08/29/18 20:11 Mupirocin (Bactroban Oint) 1 applic BID TOPIC 08/29/18 20:00 09/02/18 18:01 08/29/18 20:19 Ondansetron HCl (Zofran) 4 mg Q6H PRN IVP Nausea & Vomiting 08/29/18 20:45 09/24/18 02:44 Salmeterol Xinafoate/ Fluticasone (Advair 250/50 Diskus) 1 puffs EVERY 12 HOURS INH 08/29/18 21:00 09/24/18 08:59 Tamsulosin HCl (Flomax) 0.4 mg BEDTIME ORAL 08/29/18 21:00 09/24/18 20:59 08/29/18 20:21 Zinc Sulfate (Zinc Sulfate) 220 mg DAILY ORAL 08/30/18 09:00 09/24/18 08:59 Zolpidem Tartrate (Ambien) 5 mg HSPRN PRN ORAL Insomnia 08/30/18 02:45 09/01/18 02:44 Hernandez Corley MD Aug 30, 2018 08:17
[2018-08-30] MEDS: Metoprolol Tartrate 50mg tab ORAL SCH ×2 (08:36→21:00)
[2018-08-30] MEDS: Levodopa/Carbidopa 25/100 tab ORAL SCH ×3 (08:36→17:41)
[2018-08-30] MEDS ORDERED: Zinc Sulfate 220mg cap ORAL SCH (09:00)
[2018-08-30] MEDS ORDERED: Docusate 100mg/10ml Liq ORAL SCH (09:00)
[2018-08-30] MEDS ORDERED: Donepezil 5mg Tab ORAL SCH (09:00)
[2018-08-30] MEDS ORDERED: Aspirin Baby 81mg ORAL SCH (09:00)
[2018-08-30] MEDS ORDERED: Enoxaparin 40mg Inj SUBQ SCH (09:00)
[2018-08-30] MEDS: Advair 250/50 Inhaler - 14 dose INH SCH ×2 (09:35→20:43)
--- NOTE | 2018-08-30 10:45 | Diagnostic Imaging Report ---
Indication: Shortness of breath Technique: One view of the chest Comparison: 08/28/2018 Findings: There is minimal blunting of the bilateral costophrenic sulci, could indicate small bilateral pleural effusions. There is minimal atelectasis at the left lung base. No infiltrates Normal heart size. No significant change Impression: Possible small bilateral pleural effusions. Minimal left basilar atelectasis This agrees with the preliminary interpretation provided overnight by [facility] teleradiology service.
[2018-08-30 12:00] VITALS: BP 130/69
--- NOTE | 2018-08-30 13:17 | Podiatric Progress Note ---
Assessment/Plan Patient Bradley Talamantes is a 73 year old male who was admitted on Aug 24, 2018 at 21: 23 with Assessment/Plan A: Left heel stable eschar. P: - Pt seen and evaluated. - chart reviewed. - Cont pravalon boots to B/L LE. - Rec local wound care betadine application to posterior heel. - Rec off-loading with ABD pad and DSD. - No acute surgical intervention at this time. - Pod will cont to monitor. Subjective Allergies: Coded Allergies: No Known Allergies (Unverified , 08/24/18) Subjective - Pt seen bedside for L heel ulceration with nursing staff. Objective Exam Last 24 Hour Vital Signs Date Time Temp Pulse Resp B/P (MAP) Pulse Ox O2 Delivery O2 Flow Rate FiO2 08/30/18 13:06 80 19 98 Nasal Cannula 2.0 28 08/30/18 12:52 75 22 100 Venturi Mask 4.0 30 08/30/18 09:36 Venturi Mask 4.0 30 08/30/18 09:36 99 08/30/18 09:36 Venturi Mask 4.0 30 08/30/18 08:36 80 124/60 08/30/18 08:00 98.0 91 17 124/60 (81) 94 08/30/18 08:00 88 08/30/18 07:54 71 19 99 Bi-pap 30 08/30/18 07:47 89 31 97 Facial 30 08/30/18 07:45 79 31 97 Bi-pap 30 08/30/18 04:56 72 18 100 Facial 30 08/30/18 04:00 97.7 76 21 120/69 (86) 99 08/30/18 03:28 74 08/30/18 03:21 77 20 100 Facial 30 08/30/18 01:12 78 22 100 Bi-pap 30 08/30/18 01:03 77 24 100 Bi-pap 30 08/30/18 01:00 76 25 100 Facial 30 08/30/18 00:00 98.4 78 22 113/76 (88) 100 08/29/18 23:22 74 08/29/18 23:01 79 21 100 Facial 30 08/29/18 21:18 82 25 98 Facial 40 08/29/18 21:00 Nasal Cannula 2.0 08/29/18 20:11 129 148/72 08/29/18 20:00 98.1 129 29 148/72 (97) 99 08/29/18 19:52 Bi-pap 100 08/29/18 19:51 Bi-pap 100 08/29/18 19:51 Bi-pap 100 08/29/18 19:51 Bi-pap 100 08/29/18 19:50 142 30 Bi-pap 100 08/29/18 19:45 129 148/72 08/29/18 19:20 141 28 98 Facial 100 08/29/18 19:18 143 08/29/18 16:45 92 08/29/18 16:31 102.2 08/29/18 16:30 102.2 130 26 135/50 (78) 82 08/29/18 16:15 101.8 135 25 150/102 (118) 94 08/29/18 16:01 144 150/92 08/29/18 16:00 99.5 141 24 153/81 (105) 96 08/29/18 13:17 Nasal Cannula 2.0 28 08/29/18 13:17 Nasal Cannula 2.0 28 Laboratory Tests Test 08/29/18 16:50 08/29/18 17:16 08/29/18 18:04 08/29/18 18:10 Vancomycin Level Trough 23.5 ug/mL (5.0-12.0) H Arterial Blood pH 7.005 (7.350-7.450) 7.259 (7.350-7.450) Arterial Blood Partial Pressure CO2 89.7 mmHg (35.0-45.0) *H 53.7 mmHg (35.0-45.0) H Arterial Blood Partial Pressure O2 101.7 mmHg (75.0-100.0) H 344.7 mmHg (75.0-100.0) H Arterial Blood HCO3 21.9 mmol/L (22.0-26.0) L 23.5 mmol/L (22.0-26.0) Arterial Blood Oxygen Saturation 93.4 % (95-100) L 99.5 % (95-100) Arterial Blood Base Excess -10.8 (-2-2) *L -4.0 (-2-2) L Arun Test Positive Positive Sodium Level 145 MMOL/L (136-145) Potassium Level 4.9 MMOL/L (3.5-5.1) Chloride Level 106 MMOL/L (98-107) Carbon Dioxide Level 28 MMOL/L (21-32) Anion Gap 11 mmol/L (5-15) Blood Urea Nitrogen 18 mg/dL (7-18) Creatinine 1.3 MG/DL (0.55-1.30) Estimat Glomerular Filtration Rate mL/min (>60) Glucose Level 118 MG/DL (74-106) H Lactic Acid Level 4.30 mmol/L (0.4-2.0) H Calcium Level 9.1 MG/DL (8.5-10.1) Total Bilirubin 0.3 MG/DL (0.2-1.0) Aspartate Amino Transf (AST/SGOT) 28 U/L (15-37) Alanine Aminotransferase (ALT/SGPT) 11 U/L (12-78) L Alkaline Phosphatase 63 U/L (46-116) Troponin I 0.038 ng/mL (0.000-0.056) Total Protein 7.6 G/DL (6.4-8.2) Albumin 3.1 G/DL (3.4-5.0) L Globulin 4.5 g/dL Albumin/Globulin Ratio 0.7 (1.0-2.7) L Test 08/29/18 19:00 08/29/18 20:53 08/30/18 03:30 08/30/18 11:57 White Blood Count 48.1 K/UL (4.8-10.8) *H 29.8 K/UL (4.8-10.8) *H 24.8 K/UL (4.8-10.8) *H Red Blood Count 4.09 M/UL (4.70-6.10) L 3.73 M/UL (4.70-6.10) L 3.61 M/UL (4.70-6.10) L Hemoglobin 11.6 G/DL (14.2-18.0) L 10.8 G/DL (14.2-18.0) L 10.6 G/DL (14.2-18.0) L Hematocrit 35.8 % (42.0-52.0) L 32.6 % (42.0-52.0) L 31.1 % (42.0-52.0) L Mean Corpuscular Volume 88 FL (80-99) 88 FL (80-99) 86 FL (80-99) Mean Corpuscular Hemoglobin 28.4 PG (27.0-31.0) 28.9 PG (27.0-31.0) 29.3 PG (27.0-31.0) Mean Corpuscular Hemoglobin Concent 32.4 G/DL (32.0-36.0) 33.0 G/DL (32.0-36.0) 34.1 G/DL (32.0-36.0) Red Cell Distribution Width 12.1 % (11.6-14.8) 12.4 % (11.6-14.8) 12.4 % (11.6-14.8) Platelet Count 446 K/UL (150-450) 353 K/UL (150-450) 337 K/UL (150-450) Mean Platelet Volume 6.7 FL (6.5-10.1) 6.6 FL (6.5-10.1) 7.2 FL (6.5-10.1) Neutrophils (%) (Auto) % (45.0-75.0) % (45.0-75.0) % (45.0-75.0) Lymphocytes (%) (Auto) % (20.0-45.0) % (20.0-45.0) % (20.0-45.0) Monocytes (%) (Auto) % (1.0-10.0) % (1.0-10.0) % (1.0-10.0) Eosinophils (%) (Auto) % (0.0-3.0) % (0.0-3.0) % (0.0-3.0) Basophils (%) (Auto) % (0.0-2.0) % (0.0-2.0) % (0.0-2.0) Differential Total Cells Counted 100 100 100 Neutrophils % (Manual) 78 % (45-75) H 85 % (45-75) H 89 % (45-75) H Lymphocytes % (Manual) 8 % (20-45) L 6 % (20-45) L 9 % (20-45) L Monocytes % (Manual) 7 % (1-10) 4 % (1-10) 2 % (1-10) Eosinophils % (Manual) 2 % (0-3) 0 % (0-3) 0 % (0-3) Basophils % (Manual) 1 % (0-2) 0 % (0-2) 0 % (0-2) Band Neutrophils 4 % (0-8) 5 % (0-8) 0 % (0-8) Platelet Estimate Adequate Adequate Adequate Platelet Morphology Normal Normal Normal Polychromasia 1+ 1+ Hypochromasia 1+ 1+ 1+ Anisocytosis 1+ 1+ 1+ Lactic Acid Level 1.00 mmol/L (0.66-2.22) Sodium Level 141 MMOL/L (136-145) Potassium Level 4.7 MMOL/L (3.5-5.1) Chloride Level 106 MMOL/L (98-107) Carbon Dioxide Level 24 MMOL/L (21-32) Anion Gap 11 mmol/L (5-15) Blood Urea Nitrogen 33 mg/dL (7-18) H Creatinine 1.2 MG/DL (0.55-1.30) Estimat Glomerular Filtration Rate mL/min (>60) Glucose Level 118 MG/DL (74-106) H Calcium Level 8.3 MG/DL (8.5-10.1) L Magnesium Level 2.4 MG/DL (1.8-2.4) Arterial Blood pH 7.476 (7.350-7.450) Arterial Blood Partial Pressure CO2 35.9 mmHg (35.0-45.0) Arterial Blood Partial Pressure O2 91.4 mmHg (75.0-100.0) Arterial Blood HCO3 25.9 mmol/L (22.0-26.0) Arterial Blood Oxygen Saturation 96.6 % (95-100) Arterial Blood Base Excess 2.4 (-2-2) H Arun Test Positive Microbiology Date/Time Source Procedure Growth Status 08/28/18 19:35 Blood Blood Culture - Preliminary NO GROWTH AFTER 24 HOURS Resulted 08/25/18 00:40 Sputum Induced Gram Stain - Final Resulted 08/25/18 00:40 Sputum Culture - Preliminary Staphylococcus Aureus Usual Respiratory Kristie Resulted 08/24/18 20:30 Urine,Clean Catch Urine Culture - Final Klebsiella Pneumoniae Esbl Proteus Mirabilis Complete 08/24/18 23:50 Rectum - Final NO CARBAPENEM-RESISTANT ENTEROBACTERI... Complete Dermatological Dermatological Narrative PODIATRY EVALUATION: VASCULAR: - Dorsalis pedis is palpable +2/4. Posterior tibial artery palpable 1/4. [employer]ICAL [employer] SUPER[employer]OR < 3 seconds. - Edema noted distal to tibial tuberosity. NEUROLOGICAL: - SILT and protective sensation is noted to be intact to bilateral feet. MUSCULOSKELETAL: - The patient is bedbound. Decreased MS noted. contracted digits 2-5. DERMATOLOGICAL: - Left posterior heel stable eschar noted. approx 2.0 x. 2.0cm , no acute SOI are noted. normal temp differential. no active purulent drainage is noted. Gary Fierro DPM Aug 30, 2018 13:17
--- NOTE | 2018-08-30 14:13 | Nephrology Progress Note ---
Assessment/Plan Problem List: (1) COPD (chronic obstructive pulmonary disease) Assessment: - appreciate pulmonary input -cont iv abx for probable pneumonia -noted cxr -s/p diuresis -o2 (2) UTI (urinary tract infection) Assessment: -cultures noted, iv abx per id -bone scan to r/o osteo -increased wbc count noted (3) Pneumonia Assessment: -hhn, o2, f.u cxr, iv abx, sputum cultures (4) Diabetes 1.5, managed as type 2 Assessment: -follow bs, on ssi (5) Hypothyroid Assessment: -check tft (6) Dysphagia as late effect of cerebrovascular accident (CVA) Assessment: -cont tube feeds, held after n/v x 3, no residual now Subjective ROS Limited/Unobtainable: Yes Objective Objective Last 24 Hour Vital Signs Date Time Temp Pulse Resp B/P (MAP) Pulse Ox O2 Delivery O2 Flow Rate FiO2 08/30/18 13:06 80 19 98 Nasal Cannula 2.0 28 08/30/18 12:52 75 22 100 Venturi Mask 4.0 30 08/30/18 12:00 82 08/30/18 09:36 Venturi Mask 4.0 30 08/30/18 09:36 99 08/30/18 09:36 Venturi Mask 4.0 30 08/30/18 08:36 80 124/60 08/30/18 08:00 98.0 91 17 124/60 (81) 94 08/30/18 08:00 88 08/30/18 07:54 71 19 99 Bi-pap 30 08/30/18 07:47 89 31 97 Facial 30 08/30/18 07:45 79 31 97 Bi-pap 30 08/30/18 04:56 72 18 100 Facial 30 08/30/18 04:00 97.7 76 21 120/69 (86) 99 08/30/18 03:28 74 08/30/18 03:21 77 20 100 Facial 30 08/30/18 01:12 78 22 100 Bi-pap 30 08/30/18 01:03 77 24 100 Bi-pap 30 08/30/18 01:00 76 25 100 Facial 30 08/30/18 00:00 98.4 78 22 113/76 (88) 100 08/29/18 23:22 74 08/29/18 23:01 79 21 100 Facial 30 08/29/18 21:18 82 25 98 Facial 40 08/29/18 21:00 Nasal Cannula 2.0 08/29/18 20:11 129 148/72 08/29/18 20:00 98.1 129 29 148/72 (97) 99 08/29/18 19:52 Bi-pap 100 08/29/18 19:51 Bi-pap 100 08/29/18 19:51 Bi-pap 100 08/29/18 19:51 Bi-pap 100 08/29/18 19:50 142 30 Bi-pap 100 08/29/18 19:45 129 148/72 08/29/18 19:20 141 28 98 Facial 100 08/29/18 19:18 143 08/29/18 16:45 92 08/29/18 16:31 102.2 08/29/18 16:30 102.2 130 26 135/50 (78) 82 08/29/18 16:15 101.8 135 25 150/102 (118) 94 08/29/18 16:01 144 150/92 08/29/18 16:00 99.5 141 24 153/81 (105) 96 Intake and Output 08/29/18 08/30/18 19:00 07:00 Intake Total 65 ml 1680 ml Output Total 800 ml 400 ml Balance -735 ml 1280 ml Intake Free Water 500 ml IV Total 465 ml Tube Feeding 65 ml 715 ml Output Urine Total 800 ml 400 ml Laboratory Tests 08/29/18 16:50: Vancomycin Level Trough 23.5H 08/29/18 17:16: Arterial Blood pH 7.005*L, Arterial Blood Partial Pressure CO2 89.7*H, Arterial Blood Partial Pressure O2 101.7H, Arterial Blood HCO3 21.9L, Arterial Blood Oxygen Saturation 93.4L, Arterial Blood Base Excess -10.8*L, Arun Test Positive 08/29/18 18:04: Arterial Blood pH 7.259L, Arterial Blood Partial Pressure CO2 53.7H, Arterial Blood Partial Pressure O2 344.7H, Arterial Blood HCO3 23.5, Arterial Blood Oxygen Saturation 99.5, Arterial Blood Base Excess -4.0L, Arun Test Positive 08/29/18 18:10: Sodium Level 145, Potassium Level 4.9, Chloride Level 106, Carbon Dioxide Level 28, Anion Gap 11, Blood Urea Nitrogen 18, Creatinine 1.3, Estimat Glomerular Filtration Rate , Glucose Level 118H, Lactic Acid Level 4.30H, Calcium Level 9.1 , Total Bilirubin 0.3, Aspartate Amino Transf (AST/SGOT) 28, Alanine Aminotransferase (ALT/SGPT) 11L, Alkaline Phosphatase 63, Troponin I 0.038, Total Protein 7.6, Albumin 3.1L, Globulin 4.5, Albumin/Globulin Ratio 0.7L 08/29/18 19:00: White Blood Count 48.1*H, Red Blood Count 4.09L, Hemoglobin 11.6L, Hematocrit 35.8L, Mean Corpuscular Volume 88, Mean Corpuscular Hemoglobin 28.4, Mean Corpuscular Hemoglobin Concent 32.4, Red Cell Distribution Width 12.1, Platelet Count 446, Mean Platelet Volume 6.7, Neutrophils (%) (Auto) , Lymphocytes (%) ( Auto) , Monocytes (%) (Auto) , Eosinophils (%) (Auto) , Basophils (%) (Auto) , Differential Total Cells Counted 100, Neutrophils % (Manual) 78H, Lymphocytes % (Manual) 8L, Monocytes % (Manual) 7, Eosinophils % (Manual) 2, Basophils % ( Manual) 1, Band Neutrophils 4, Platelet Estimate Adequate, Platelet Morphology Normal, Polychromasia 1+, Hypochromasia 1+, Anisocytosis 1+ 08/29/18 20:53: White Blood Count 29.8*H, Red Blood Count 3.73L, Hemoglobin 10.8L, Hematocrit 32.6L, Mean Corpuscular Volume 88, Mean Corpuscular Hemoglobin 28.9, Mean Corpuscular Hemoglobin Concent 33.0, Red Cell Distribution Width 12.4, Platelet Count 353, Mean Platelet Volume 6.6, Neutrophils (%) (Auto) , Lymphocytes (%) ( Auto) , Monocytes (%) (Auto) , Eosinophils (%) (Auto) , Basophils (%) (Auto) , Differential Total Cells Counted 100, Neutrophils % (Manual) 85H, Lymphocytes % (Manual) 6L, Monocytes % (Manual) 4, Eosinophils % (Manual) 0, Basophils % ( Manual) 0, Band Neutrophils 5, Platelet Estimate Adequate, Platelet Morphology Normal, Polychromasia 1+, Hypochromasia 1+, Anisocytosis 1+, Lactic Acid Level 1.00 08/30/18 03:30: White Blood Count 24.8*H, Red Blood Count 3.61L, Hemoglobin 10.6L, Hematocrit 31.1L, Mean Corpuscular Volume 86, Mean Corpuscular Hemoglobin 29.3, Mean Corpuscular Hemoglobin Concent 34.1, Red Cell Distribution Width 12.4, Platelet Count 337, Mean Platelet Volume 7.2, Neutrophils (%) (Auto) , Lymphocytes (%) ( Auto) , Monocytes (%) (Auto) , Eosinophils (%) (Auto) , Basophils (%) (Auto) , Differential Total Cells Counted 100, Neutrophils % (Manual) 89H, Lymphocytes % (Manual) 9L, Monocytes % (Manual) 2, Eosinophils % (Manual) 0, Basophils % ( Manual) 0, Band Neutrophils 0, Platelet Estimate Adequate, Platelet Morphology Normal, Hypochromasia 1+, Anisocytosis 1+, Sodium Level 141, Potassium Level 4.7 , Chloride Level 106, Carbon Dioxide Level 24, Anion Gap 11, Blood Urea Nitrogen 33H, Creatinine 1.2, Estimat Glomerular Filtration Rate , Glucose Level 118H, Calcium Level 8.3L, Magnesium Level 2.4 08/30/18 11:57: Arterial Blood pH 7.476H, Arterial Blood Partial Pressure CO2 35.9, Arterial Blood Partial Pressure O2 91.4, Arterial Blood HCO3 25.9, Arterial Blood Oxygen Saturation 96.6, Arterial Blood Base Excess 2.4H, Arun Test Positive Height (Feet): 6 Height (Inches): 0.00 Weight (Pounds): 152 General Appearance: lethargic, confused, mild distress EENT: PERRL/EOMI, pale conjunctivae Neck: non-tender Cardiovascular: regular rhythm Respiratory/Chest: decreased breath sounds, accessory muscle use, rhonchi - left Abdomen: soft, decreased bowel sounds, distended Genitourinary/Rectal: normal genital exam Extremities: non-pitting Neurologic: cheesemaker helper II-XII grossly normal, motor weakness Jaxon Amaro M.D. Aug 30, 2018 14:13
--- NOTE | 2018-08-30 15:11 | Consultation ---
History of Present Illness General Date patient seen: Aug 30, 2018 Chief Complaint: Upper Respiratory Illness Reason for Consultation: Sacral Decubitus Ulcer Present Illness HPI 73 year old male with multiple medical comorbidities currently admitted for care and management noted to have bacteremia with possible etiology being his multiple wounds. Surgery called to evaluate and assist with care of wounds. patient seen, chart reviewed, patient examined. Bone Scan currently being performed to evaluate for osteo. Allergies: Coded Allergies: No Known Allergies (Unverified , 08/24/18) Medication History Scheduled Aspirin* (Aspirin*), 81 MG ORAL DAILY, (Reported) Atorvastatin Calcium* (Atorvastatin Calcium*), 40 MG ORAL BEDTIME, (Reported) Carbidopa/Levodopa 25-100 Mg* (Sinemet 25-100 Mg Tablet*), 1 TAB ORAL THREE TIMES A DAY, (Reported) Docusate Sodium (Docusate Sodium), 100 MG GT DAILY, (Reported) Donepezil Hcl* (Donepezil Hcl*), 5 MG GT DAILY, (Reported) Enoxaparin Sodium (Enoxaparin Sodium), 40 MG SUBQ DAILY, (Reported) Famotidine (Famotidine), 20 MG GT TWICE A DAY, (Reported) Fluticasone/Salmeterol (Advair 250-50 Diskus), 1 PUFF INH EVERY 12 HOURS, ( Reported) Levetiracetam (Keppra Xr), 500 MG ORAL DAILY, (Reported) Metoprolol Tartrate* (Metoprolol Tartrate*), 25 MG ORAL EVERY 12 HOURS, ( Reported) Tamsulosin Hcl (Tamsulosin Hcl*), 0.4 MG GT BEDTIME, (Reported) Zinc Sulfate (Zinc Sulfate*), 220 MG GT DAILY, (Reported) Scheduled PRN Acetaminophen* (Acetaminophen 325MG Tablet*), 650 MG ORAL Q4H PRN for Mild Pain/ Temp > 100.5, (Reported) Ipratropium [place] 0.5MG/2.5ML (Ipratropium [place] 0.5MG/2.5ML), 0.5 MG HHN Q6H PRN for Shortness of Breath, (Reported) Miscellaneous Medications Baclofen (Baclofen), 5 MG PO, (Reported) [insulin aspart scott], (Reported) [tylenol supp 650 mg], 650, (Reported) Patient History Limited by: medical condition History Provided By: Medical Record, PMD Healthcare decision maker Resuscitation status Do Not Resuscitate Advanced Directive on File Past Medical/Surgical History Past Medical/Surgical History: (1) COPD (chronic obstructive pulmonary disease) (2) UTI (urinary tract infection) (3) Diabetes 1.5, managed as type 2 (4) Hypothyroid (5) Dysphagia as late effect of cerebrovascular accident (CVA) (6) Pneumonia (7) Aspiration pneumonia (8) Sepsis due to coagulase-negative staphylococcal infection (9) Heel ulcer Review of Systems All Other Systems: negative except mentioned in HPI Physical Exam General Appearance: no apparent distress Lines, tubes and drains: other HEENT: mucous membranes moist Neck: normal inspection Respiratory/Chest: normal breath sounds, no respiratory distress Cardiovascular/Chest: normal rate Abdomen: soft, no organomegaly, no mass Extremities: other Skin Exam: other Last 24 Hour Vital Signs Date Time Temp Pulse Resp B/P (MAP) Pulse Ox O2 Delivery O2 Flow Rate FiO2 08/30/18 13:06 80 19 98 Nasal Cannula 2.0 28 08/30/18 12:52 75 22 100 Venturi Mask 4.0 30 08/30/18 12:00 82 08/30/18 09:36 Venturi Mask 4.0 30 08/30/18 09:36 99 08/30/18 09:36 Venturi Mask 4.0 30 08/30/18 08:36 80 124/60 08/30/18 08:00 98.0 91 17 124/60 (81) 94 08/30/18 08:00 88 08/30/18 07:54 71 19 99 Bi-pap 30 08/30/18 07:47 89 31 97 Facial 30 08/30/18 07:45 79 31 97 Bi-pap 30 08/30/18 04:56 72 18 100 Facial 30 08/30/18 04:00 97.7 76 21 120/69 (86) 99 08/30/18 03:28 74 08/30/18 03:21 77 20 100 Facial 30 08/30/18 01:12 78 22 100 Bi-pap 30 08/30/18 01:03 77 24 100 Bi-pap 30 08/30/18 01:00 76 25 100 Facial 30 08/30/18 00:00 98.4 78 22 113/76 (88) 100 08/29/18 23:22 74 08/29/18 23:01 79 21 100 Facial 30 08/29/18 21:18 82 25 98 Facial 40 08/29/18 21:00 Nasal Cannula 2.0 08/29/18 20:11 129 148/72 08/29/18 20:00 98.1 129 29 148/72 (97) 99 08/29/18 19:52 Bi-pap 100 08/29/18 19:51 Bi-pap 100 08/29/18 19:51 Bi-pap 100 08/29/18 19:51 Bi-pap 100 08/29/18 19:50 142 30 Bi-pap 100 08/29/18 19:45 129 148/72 08/29/18 19:20 141 28 98 Facial 100 08/29/18 19:18 143 08/29/18 16:45 92 08/29/18 16:31 102.2 08/29/18 16:30 102.2 130 26 135/50 (78) 82 08/29/18 16:15 101.8 135 25 150/102 (118) 94 08/29/18 16:01 144 150/92 08/29/18 16:00 99.5 141 24 153/81 (105) 96 Intake and Output 08/29/18 08/30/18 19:00 07:00 Intake Total 65 ml 1680 ml Output Total 800 ml 400 ml Balance -735 ml 1280 ml Intake Free Water 500 ml IV Total 465 ml Tube Feeding 65 ml 715 ml Output Urine Total 800 ml 400 ml Laboratory Tests Test 08/29/18 16:50 08/29/18 17:16 08/29/18 18:04 08/29/18 18:10 Vancomycin Level Trough 23.5 ug/mL (5.0-12.0) H Arterial Blood pH 7.005 (7.350-7.450) 7.259 (7.350-7.450) Arterial Blood Partial Pressure CO2 89.7 mmHg (35.0-45.0) *H 53.7 mmHg (35.0-45.0) H Arterial Blood Partial Pressure O2 101.7 mmHg (75.0-100.0) H 344.7 mmHg (75.0-100.0) H Arterial Blood HCO3 21.9 mmol/L (22.0-26.0) L 23.5 mmol/L (22.0-26.0) Arterial Blood Oxygen Saturation 93.4 % (95-100) L 99.5 % (95-100) Arterial Blood Base Excess -10.8 (-2-2) *L -4.0 (-2-2) L Arun Test Positive Positive Sodium Level 145 MMOL/L (136-145) Potassium Level 4.9 MMOL/L (3.5-5.1) Chloride Level 106 MMOL/L (98-107) Carbon Dioxide Level 28 MMOL/L (21-32) Anion Gap 11 mmol/L (5-15) Blood Urea Nitrogen 18 mg/dL (7-18) Creatinine 1.3 MG/DL (0.55-1.30) Estimat Glomerular Filtration Rate mL/min (>60) Glucose Level 118 MG/DL (74-106) H Lactic Acid Level 4.30 mmol/L (0.4-2.0) H Calcium Level 9.1 MG/DL (8.5-10.1) Total Bilirubin 0.3 MG/DL (0.2-1.0) Aspartate Amino Transf (AST/SGOT) 28 U/L (15-37) Alanine Aminotransferase (ALT/SGPT) 11 U/L (12-78) L Alkaline Phosphatase 63 U/L (46-116) Troponin I 0.038 ng/mL (0.000-0.056) Total Protein 7.6 G/DL (6.4-8.2) Albumin 3.1 G/DL (3.4-5.0) L Globulin 4.5 g/dL Albumin/Globulin Ratio 0.7 (1.0-2.7) L Test 08/29/18 19:00 08/29/18 20:53 08/30/18 03:30 08/30/18 11:57 White Blood Count 48.1 K/UL (4.8-10.8) *H 29.8 K/UL (4.8-10.8) *H 24.8 K/UL (4.8-10.8) *H Red Blood Count 4.09 M/UL (4.70-6.10) L 3.73 M/UL (4.70-6.10) L 3.61 M/UL (4.70-6.10) L Hemoglobin 11.6 G/DL (14.2-18.0) L 10.8 G/DL (14.2-18.0) L 10.6 G/DL (14.2-18.0) L Hematocrit 35.8 % (42.0-52.0) L 32.6 % (42.0-52.0) L 31.1 % (42.0-52.0) L Mean Corpuscular Volume 88 FL (80-99) 88 FL (80-99) 86 FL (80-99) Mean Corpuscular Hemoglobin 28.4 PG (27.0-31.0) 28.9 PG (27.0-31.0) 29.3 PG (27.0-31.0) Mean Corpuscular Hemoglobin Concent 32.4 G/DL (32.0-36.0) 33.0 G/DL (32.0-36.0) 34.1 G/DL (32.0-36.0) Red Cell Distribution Width 12.1 % (11.6-14.8) 12.4 % (11.6-14.8) 12.4 % (11.6-14.8) Platelet Count 446 K/UL (150-450) 353 K/UL (150-450) 337 K/UL (150-450) Mean Platelet Volume 6.7 FL (6.5-10.1) 6.6 FL (6.5-10.1) 7.2 FL (6.5-10.1) Neutrophils (%) (Auto) % (45.0-75.0) % (45.0-75.0) % (45.0-75.0) Lymphocytes (%) (Auto) % (20.0-45.0) % (20.0-45.0) % (20.0-45.0) Monocytes (%) (Auto) % (1.0-10.0) % (1.0-10.0) % (1.0-10.0) Eosinophils (%) (Auto) % (0.0-3.0) % (0.0-3.0) % (0.0-3.0) Basophils (%) (Auto) % (0.0-2.0) % (0.0-2.0) % (0.0-2.0) Differential Total Cells Counted 100 100 100 Neutrophils % (Manual) 78 % (45-75) H 85 % (45-75) H 89 % (45-75) H Lymphocytes % (Manual) 8 % (20-45) L 6 % (20-45) L 9 % (20-45) L Monocytes % (Manual) 7 % (1-10) 4 % (1-10) 2 % (1-10) Eosinophils % (Manual) 2 % (0-3) 0 % (0-3) 0 % (0-3) Basophils % (Manual) 1 % (0-2) 0 % (0-2) 0 % (0-2) Band Neutrophils 4 % (0-8) 5 % (0-8) 0 % (0-8) Platelet Estimate Adequate Adequate Adequate Platelet Morphology Normal Normal Normal Polychromasia 1+ 1+ Hypochromasia 1+ 1+ 1+ Anisocytosis 1+ 1+ 1+ Lactic Acid Level 1.00 mmol/L (0.66-2.22) Sodium Level 141 MMOL/L (136-145) Potassium Level 4.7 MMOL/L (3.5-5.1) Chloride Level 106 MMOL/L (98-107) Carbon Dioxide Level 24 MMOL/L (21-32) Anion Gap 11 mmol/L (5-15) Blood Urea Nitrogen 33 mg/dL (7-18) H Creatinine 1.2 MG/DL (0.55-1.30) Estimat Glomerular Filtration Rate mL/min (>60) Glucose Level 118 MG/DL (74-106) H Calcium Level 8.3 MG/DL (8.5-10.1) L Magnesium Level 2.4 MG/DL (1.8-2.4) Arterial Blood pH 7.476 (7.350-7.450) Arterial Blood Partial Pressure CO2 35.9 mmHg (35.0-45.0) Arterial Blood Partial Pressure O2 91.4 mmHg (75.0-100.0) Arterial Blood HCO3 25.9 mmol/L (22.0-26.0) Arterial Blood Oxygen Saturation 96.6 % (95-100) Arterial Blood Base Excess 2.4 (-2-2) H Arun Test Positive Height (Feet): 6 Height (Inches): 0.00 Weight (Pounds): 152 Medications Current Medications Medications (Trade) Dose Ordered Sig/Santosh Route PRN Reason Start Time Stop Time Status Last Admin Dose Admin Acetaminophen (Tylenol) 650 mg Q4H PRN ORAL Mild Pain/Temp > 100.5 08/29/18 23:15 09/24/18 03:14 Acetaminophen (Tylenol) 650 mg Q4H PRN RECTAL Mild Pain/Temp > 100.5 08/29/18 22:15 09/28/18 18:14 Albuterol Sulfate (Proventil) 2.5 mg Q6HRT HHN 08/30/18 01:00 08/30/18 18:59 08/30/18 12:52 Aspirin (ASA) 81 mg DAILY ORAL 08/30/18 09:00 09/24/18 08:59 08/30/18 08:35 Atorvastatin Calcium (Lipitor) 40 mg BEDTIME ORAL 08/29/18 21:00 09/24/18 20:59 08/29/18 20:10 Carbidopa/Levodopa (Sinemet 25/100) 1 tab THREE TIMES A DAY ORAL 08/30/18 09:00 09/24/18 08:59 08/30/18 13:01 Dextrose (Dextrose 50%) 25 ml Q30M PRN IV Hypoglycemia 08/29/18 19:45 09/24/18 02:44 Dextrose (Dextrose 50%) 50 ml Q30M PRN IV Hypoglycemia 08/29/18 19:45 09/24/18 02:44 Docusate Sodium (Colace) 100 mg DAILY ORAL 08/30/18 09:00 09/24/18 08:59 08/30/18 08:36 Donepezil HCl (Aricept) 5 mg DAILY ORAL 08/30/18 09:00 09/24/18 08:59 08/30/18 08:35 Enoxaparin Sodium (Lovenox) 40 mg DAILY SUBQ 08/30/18 09:00 09/24/18 08:59 08/30/18 08:37 Famotidine (Pepcid) 20 mg TWICE A DAY ORAL 08/30/18 09:00 09/24/18 08:59 08/30/18 08:35 Insulin Aspart (NovoLOG) EVERY 6 HOURS SUBQ 08/30/18 00:00 09/24/18 05:59 08/30/18 11:40 Linezolid 300 ml @ 300 mls/hr Q12HR IVPB 08/29/18 23:00 09/05/18 22:59 08/30/18 10:29 Lorazepam (Ativan 2mg/ml 1ml) 0.5 mg Q4H PRN IV For Anxiety 08/29/18 20:00 09/05/18 15:59 08/30/18 08:10 Meropenem 1 gm/ Sodium Chloride 55 ml @ 110 mls/hr Q8HR IVPB 08/29/18 22:15 09/03/18 22:14 08/30/18 15:00 Metoprolol Tartrate (Lopressor) 50 mg Q12HR ORAL 08/29/18 21:00 09/28/18 20:59 08/30/18 08:36 Mupirocin (Bactroban Oint) 1 applic BID TOPIC 08/29/18 20:00 09/02/18 18:01 08/30/18 08:38 Ondansetron HCl (Zofran) 4 mg Q6H PRN IVP Nausea & Vomiting 08/29/18 20:45 09/24/18 02:44 Salmeterol Xinafoate/ Fluticasone (Advair 250/50 Diskus) 1 puffs EVERY 12 HOURS INH 08/29/18 21:00 09/24/18 08:59 Tamsulosin HCl (Flomax) 0.4 mg BEDTIME ORAL 08/29/18 21:00 09/24/18 20:59 08/29/18 20:21 Zinc Sulfate (Zinc Sulfate) 220 mg DAILY ORAL 08/30/18 09:00 09/24/18 08:59 08/30/18 08:35 Zolpidem Tartrate (Ambien) 5 mg HSPRN PRN ORAL Insomnia 08/30/18 02:45 09/01/18 02:44 Assessment/Plan Problem List: (1) Sacral decubitus ulcer Assessment & Plan: Stage III full thickness pressure injury sacrococcygeal area present on admission.90% Yellow slough at base of wound, (+) maceration along borders(L)2.2cm x (W)1cm.Presence of moisture associated skin damage to buttocks extending to scrotal area, erythema with moisture denudements noted. Stable dry brown eschar noted to L heel (L)2cm x (W)2.8cm. Periwound without erythema or fluctuance. R heel boggy with non-blanchable erythema. Prickly red rash noted to back . Cleanse sacral wound with Saline.Apply Therahoney. Apply Triad paste periwound. Cover with Optifoam drsg. Change Daily and prn. Apply Triad Paste to buttocks and scrotum with each perineal care. Air Fluidized mattress. Continue Wound care to L heel as per Podiatry orders. Apply Cavilon Skin Barrier to R heel.Cover with Optifoam drsg .Change every 7 days and prn. Reposition at least every 2hours or as tolerated. Off-load heels with pillow. Bone Scan pending appreciate Podiatry input thank you for allowing me to participate in patients care. will follow with recs and care for wounds while in hospital ICD Codes: L89.159 - Pressure ulcer of sacral region, unspecified stage SNOMED: [id number] Darin Brewster Aug 30, 2018 15:11
[2018-08-30 16:00] VITALS: BP 119/70
--- NOTE | 2018-08-30 16:19 | Diagnostic Imaging Report ---
Indication: Reason For Exam: OSTEOMY Technique: IV administration mCi 99 M technetium MDP. Flow, blood flow, and static images obtained over the bilateral feet. Comparison: No correlative plain film studies are available Findings: Flow images demonstrate minimal asymmetric relative hyperemia of the left ankle. Blood pool images demonstrate slightly increased blood pool activity in the region of the tibiotalar joint on the left. No definite abnormal calcaneal region activity is demonstrated. Static images demonstrate vague is symmetrical increased activity in the region of the ankle joints bilaterally. No evidence of abnormal heel activity demonstrated. There is increased activity in the region of the first metatarsophalangeal joint on the static images. Impression: No scintigraphic findings to suggest osteomyelitis of the left heel or elsewhere. Subtly increased flow activity to the left ankle could indicate cellulitis Nonspecific symmetric bilateral ankle joint activity on the static images, may indicate degenerative changes. Increased activity in the region of the first metatarsal phalangeal joint, seen only on the static images, likely degenerative in nature. Recommend plain radiographic correlation for evaluation of the above abnormalities
--- NOTE | 2018-08-30 16:58 | Infectious Diseases Prog Note ---
Assessment/Plan Problems: (1) Sepsis due to coagulase-negative staphylococcal infection Assessment & Plan: source most likely his pressure wounds, now in zyvox since he was febrile and hypoxemic yesterday while on vancomycin , await echo to rule out vegetations, repeated blood culture to confirm clearance is negative so far . (2) Aspiration pneumonia Assessment & Plan: now on zyvox and meropenem since he had more secretions and fever while on ertapenem and vancomycin , await final sputum culture , continue with aspiration precaution, keep HOB > 30 degree all the time (3) UTI (urinary tract infection) Assessment & Plan: due to ESBL producing Klebsiella pneumonia and proteus mirabilis , on meropenem for two weeks . change edwards catheter if not done yet (4) COPD (chronic obstructive pulmonary disease) Assessment & Plan: due to the above , continue antibiotics, inhalers and nebulizer therapy (5) Diabetes 1.5, managed as type 2 Assessment & Plan: recommend tight glycemic control (6) Heel ulcer Assessment & Plan: on the left mainly, bone scan ruled out osteomyelitis , continue local wound care and dressing change as per hospital protocol. legal stenographer is following Subjective ROS Limited/Unobtainable: Yes Allergies: Coded Allergies: No Known Allergies (Unverified , 08/24/18) Subjective He was awake and comfortable, now on nasal canula satting well, no more fever or chills, has cough , but no SOB, no diarrhea Objective Vital Signs Last 24 Hour Vital Signs Date Time Temp Pulse Resp B/P (MAP) Pulse Ox O2 Delivery O2 Flow Rate FiO2 08/30/18 16:00 98.6 65 18 119/70 (86) 99 08/30/18 16:00 Nasal Cannula 3.0 08/30/18 13:06 80 19 98 Nasal Cannula 2.0 28 08/30/18 12:52 75 22 100 Venturi Mask 4.0 30 08/30/18 12:00 82 08/30/18 12:00 Nasal Cannula 3.0 08/30/18 12:00 97.8 87 19 130/69 (89) 96 08/30/18 09:36 Venturi Mask 4.0 30 08/30/18 09:36 99 08/30/18 09:36 Venturi Mask 4.0 30 08/30/18 08:36 80 124/60 08/30/18 08:00 Venturi Mask 08/30/18 08:00 98.0 91 17 124/60 (81) 94 08/30/18 08:00 88 08/30/18 07:54 71 19 99 Bi-pap 30 08/30/18 07:47 89 31 97 Facial 30 08/30/18 07:45 79 31 97 Bi-pap 30 08/30/18 04:56 72 18 100 Facial 30 08/30/18 04:00 97.7 76 21 120/69 (86) 99 08/30/18 03:28 74 08/30/18 03:21 77 20 100 Facial 30 08/30/18 01:12 78 22 100 Bi-pap 30 08/30/18 01:03 77 24 100 Bi-pap 30 08/30/18 01:00 76 25 100 Facial 30 08/30/18 00:00 98.4 78 22 113/76 (88) 100 08/29/18 23:22 74 08/29/18 23:01 79 21 100 Facial 30 08/29/18 21:18 82 25 98 Facial 40 08/29/18 21:00 Nasal Cannula 2.0 08/29/18 20:11 129 148/72 08/29/18 20:00 98.1 129 29 148/72 (97) 99 08/29/18 19:52 Bi-pap 100 08/29/18 19:51 Bi-pap 100 08/29/18 19:51 Bi-pap 100 08/29/18 19:51 Bi-pap 100 08/29/18 19:50 142 30 Bi-pap 100 08/29/18 19:45 129 148/72 08/29/18 19:20 141 28 98 Facial 100 08/29/18 19:18 143 Height (Feet): 6 Height (Inches): 0.00 Weight (Pounds): 152 General Appearance: no acute distress, cachetic HEENT: normocephalic, atraumatic, anicteric, PERRL, pharynx normal, supple, no JVD Respiratory/Chest: chest wall non-tender, no respiratory distress, no accessory muscle use, decreased breath sounds, crackles/rales Cardiovascular: normal peripheral pulses, normal rate, regular rhythm, no gallop/murmur, no JVD Abdomen: normal bowel sounds, soft, non tender, no organomegaly, non distended , no mass, no scars Extremities: no cyanosis, no clubbing Skin: no rash, no lesions, ulcers Neurologic/Psychiatric: alert, responsive Lymphatic: no neck adenopathy, no groin adenopathy Musculoskeletal: normal muscle bulk, no effusion Microbiology Date/Time Source Procedure Growth Status 08/28/18 19:35 Blood Blood Culture - Preliminary NO GROWTH AFTER 24 HOURS Resulted 08/28/18 19:20 Blood Blood Culture - Preliminary NO GROWTH AFTER 24 HOURS Resulted Laboratory Tests Test 08/29/18 17:16 08/29/18 18:04 08/29/18 18:10 08/29/18 19:00 Arterial Blood pH 7.005 (7.350-7.450) 7.259 (7.350-7.450) Arterial Blood Partial Pressure CO2 89.7 mmHg (35.0-45.0) *H 53.7 mmHg (35.0-45.0) H Arterial Blood Partial Pressure O2 101.7 mmHg (75.0-100.0) H 344.7 mmHg (75.0-100.0) H Arterial Blood HCO3 21.9 mmol/L (22.0-26.0) L 23.5 mmol/L (22.0-26.0) Arterial Blood Oxygen Saturation 93.4 % (95-100) L 99.5 % (95-100) Arterial Blood Base Excess -10.8 (-2-2) *L -4.0 (-2-2) L Arun Test Positive Positive Sodium Level 145 MMOL/L (136-145) Potassium Level 4.9 MMOL/L (3.5-5.1) Chloride Level 106 MMOL/L (98-107) Carbon Dioxide Level 28 MMOL/L (21-32) Anion Gap 11 mmol/L (5-15) Blood Urea Nitrogen 18 mg/dL (7-18) Creatinine 1.3 MG/DL (0.55-1.30) Estimat Glomerular Filtration Rate mL/min (>60) Glucose Level 118 MG/DL (74-106) H Lactic Acid Level 4.30 mmol/L (0.4-2.0) H Calcium Level 9.1 MG/DL (8.5-10.1) Total Bilirubin 0.3 MG/DL (0.2-1.0) Aspartate Amino Transf (AST/SGOT) 28 U/L (15-37) Alanine Aminotransferase (ALT/SGPT) 11 U/L (12-78) L Alkaline Phosphatase 63 U/L (46-116) Troponin I 0.038 ng/mL (0.000-0.056) Total Protein 7.6 G/DL (6.4-8.2) Albumin 3.1 G/DL (3.4-5.0) L Globulin 4.5 g/dL Albumin/Globulin Ratio 0.7 (1.0-2.7) L White Blood Count 48.1 K/UL (4.8-10.8) *H Red Blood Count 4.09 M/UL (4.70-6.10) L Hemoglobin 11.6 G/DL (14.2-18.0) L Hematocrit 35.8 % (42.0-52.0) L Mean Corpuscular Volume 88 FL (80-99) Mean Corpuscular Hemoglobin 28.4 PG (27.0-31.0) Mean Corpuscular Hemoglobin Concent 32.4 G/DL (32.0-36.0) Red Cell Distribution Width 12.1 % (11.6-14.8) Platelet Count 446 K/UL (150-450) Mean Platelet Volume 6.7 FL (6.5-10.1) Neutrophils (%) (Auto) % (45.0-75.0) Lymphocytes (%) (Auto) % (20.0-45.0) Monocytes (%) (Auto) % (1.0-10.0) Eosinophils (%) (Auto) % (0.0-3.0) Basophils (%) (Auto) % (0.0-2.0) Differential Total Cells Counted 100 Neutrophils % (Manual) 78 % (45-75) H Lymphocytes % (Manual) 8 % (20-45) L Monocytes % (Manual) 7 % (1-10) Eosinophils % (Manual) 2 % (0-3) Basophils % (Manual) 1 % (0-2) Band Neutrophils 4 % (0-8) Platelet Estimate Adequate Platelet Morphology Normal Polychromasia 1+ Hypochromasia 1+ Anisocytosis 1+ Test 08/29/18 20:53 08/30/18 03:30 08/30/18 11:57 White Blood Count 29.8 K/UL (4.8-10.8) *H 24.8 K/UL (4.8-10.8) *H Red Blood Count 3.73 M/UL (4.70-6.10) L 3.61 M/UL (4.70-6.10) L Hemoglobin 10.8 G/DL (14.2-18.0) L 10.6 G/DL (14.2-18.0) L Hematocrit 32.6 % (42.0-52.0) L 31.1 % (42.0-52.0) L Mean Corpuscular Volume 88 FL (80-99) 86 FL (80-99) Mean Corpuscular Hemoglobin 28.9 PG (27.0-31.0) 29.3 PG (27.0-31.0) Mean Corpuscular Hemoglobin Concent 33.0 G/DL (32.0-36.0) 34.1 G/DL (32.0-36.0) Red Cell Distribution Width 12.4 % (11.6-14.8) 12.4 % (11.6-14.8) Platelet Count 353 K/UL (150-450) 337 K/UL (150-450) Mean Platelet Volume 6.6 FL (6.5-10.1) 7.2 FL (6.5-10.1) Neutrophils (%) (Auto) % (45.0-75.0) % (45.0-75.0) Lymphocytes (%) (Auto) % (20.0-45.0) % (20.0-45.0) Monocytes (%) (Auto) % (1.0-10.0) % (1.0-10.0) Eosinophils (%) (Auto) % (0.0-3.0) % (0.0-3.0) Basophils (%) (Auto) % (0.0-2.0) % (0.0-2.0) Differential Total Cells Counted 100 100 Neutrophils % (Manual) 85 % (45-75) H 89 % (45-75) H Lymphocytes % (Manual) 6 % (20-45) L 9 % (20-45) L Monocytes % (Manual) 4 % (1-10) 2 % (1-10) Eosinophils % (Manual) 0 % (0-3) 0 % (0-3) Basophils % (Manual) 0 % (0-2) 0 % (0-2) Band Neutrophils 5 % (0-8) 0 % (0-8) Platelet Estimate Adequate Adequate Platelet Morphology Normal Normal Polychromasia 1+ Hypochromasia 1+ 1+ Anisocytosis 1+ 1+ Lactic Acid Level 1.00 mmol/L (0.66-2.22) Sodium Level 141 MMOL/L (136-145) Potassium Level 4.7 MMOL/L (3.5-5.1) Chloride Level 106 MMOL/L (98-107) Carbon Dioxide Level 24 MMOL/L (21-32) Anion Gap 11 mmol/L (5-15) Blood Urea Nitrogen 33 mg/dL (7-18) H Creatinine 1.2 MG/DL (0.55-1.30) Estimat Glomerular Filtration Rate mL/min (>60) Glucose Level 118 MG/DL (74-106) H Calcium Level 8.3 MG/DL (8.5-10.1) L Magnesium Level 2.4 MG/DL (1.8-2.4) Arterial Blood pH 7.476 (7.350-7.450) Arterial Blood Partial Pressure CO2 35.9 mmHg (35.0-45.0) Arterial Blood Partial Pressure O2 91.4 mmHg (75.0-100.0) Arterial Blood HCO3 25.9 mmol/L (22.0-26.0) Arterial Blood Oxygen Saturation 96.6 % (95-100) Arterial Blood Base Excess 2.4 (-2-2) H Arun Test Positive Current Medications Medications (Trade) Dose Ordered Sig/Santosh Route PRN Reason Start Time Stop Time Status Last Admin Dose Admin Acetaminophen (Tylenol) 650 mg Q4H PRN ORAL Mild Pain/Temp > 100.5 08/29/18 23:15 09/24/18 03:14 Acetaminophen (Tylenol) 650 mg Q4H PRN RECTAL Mild Pain/Temp > 100.5 08/29/18 22:15 09/28/18 18:14 Albuterol Sulfate (Proventil) 2.5 mg Q6HRT HHN 08/30/18 01:00 08/30/18 18:59 08/30/18 12:52 Aspirin (ASA) 81 mg DAILY ORAL 08/30/18 09:00 09/24/18 08:59 08/30/18 08:35 Atorvastatin Calcium (Lipitor) 40 mg BEDTIME ORAL 08/29/18 21:00 09/24/18 20:59 08/29/18 20:10 Carbidopa/Levodopa (Sinemet 25/100) 1 tab THREE TIMES A DAY ORAL 08/30/18 09:00 09/24/18 08:59 08/30/18 13:01 Dextrose (Dextrose 50%) 25 ml Q30M PRN IV Hypoglycemia 08/29/18 19:45 09/24/18 02:44 Dextrose (Dextrose 50%) 50 ml Q30M PRN IV Hypoglycemia 08/29/18 19:45 09/24/18 02:44 Docusate Sodium (Colace) 100 mg DAILY ORAL 08/30/18 09:00 09/24/18 08:59 08/30/18 08:36 Donepezil HCl (Aricept) 5 mg DAILY ORAL 08/30/18 09:00 09/24/18 08:59 08/30/18 08:35 Enoxaparin Sodium (Lovenox) 40 mg DAILY SUBQ 08/30/18 09:00 09/24/18 08:59 08/30/18 08:37 Famotidine (Pepcid) 20 mg TWICE A DAY ORAL 08/30/18 09:00 09/24/18 08:59 08/30/18 08:35 Insulin Aspart (NovoLOG) EVERY 6 HOURS SUBQ 08/30/18 00:00 09/24/18 05:59 08/30/18 11:40 Linezolid 300 ml @ 300 mls/hr Q12HR IVPB 08/29/18 23:00 09/05/18 22:59 08/30/18 10:29 Lorazepam (Ativan 2mg/ml 1ml) 0.5 mg Q4H PRN IV For Anxiety 08/29/18 20:00 09/05/18 15:59 08/30/18 08:10 Meropenem 1 gm/ Sodium Chloride 55 ml @ 110 mls/hr Q8HR IVPB 08/29/18 22:15 09/03/18 22:14 08/30/18 15:00 Metoprolol Tartrate (Lopressor) 50 mg Q12HR ORAL 08/29/18 21:00 09/28/18 20:59 08/30/18 08:36 Mupirocin (Bactroban Oint) 1 applic BID TOPIC 08/29/18 20:00 09/02/18 18:01 08/30/18 08:38 Ondansetron HCl (Zofran) 4 mg Q6H PRN IVP Nausea & Vomiting 08/29/18 20:45 09/24/18 02:44 Salmeterol Xinafoate/ Fluticasone (Advair 250/50 Diskus) 1 puffs EVERY 12 HOURS INH 08/29/18 21:00 09/24/18 08:59 Tamsulosin HCl (Flomax) 0.4 mg BEDTIME ORAL 08/29/18 21:00 09/24/18 20:59 08/29/18 20:21 Zinc Sulfate (Zinc Sulfate) 220 mg DAILY ORAL 08/30/18 09:00 09/24/18 08:59 08/30/18 08:35 Zolpidem Tartrate (Ambien) 5 mg HSPRN PRN ORAL Insomnia 08/30/18 02:45 09/01/18 02:44 Vilma Cedeño M.D. Aug 30, 2018 16:58
[2018-08-30] MEDS ORDERED: Acetaminophen 650 MG SUPP RECTAL PRN (18:15)
[2018-08-30] MEDS ORDERED: dilTIAZem HCl 50mg/10ml Inj IVP ONE (18:15)
[2018-08-30 20:00] VITALS: BP 119/67
[2018-08-30] MEDS: Tamsulosin 0.4mg cap ORAL SCH (21:23)
[2018-08-30] MEDS: Atorvastatin 20mg tab ORAL SCH (21:23)
[2018-08-31] VITALS (7 sets, daily range): BP systolic 108–171; BP diastolic 62–102
[2018-08-31] MEDS: NovoLOG Insulin Flexpen SUBQ SCH ×4 (00:09→18:00)
[2018-08-31] MEDS: Albuterol ud Inhalation HHN SCH ×3 (01:00→13:09)
[2018-08-31] MEDS: LORazepam Inj 2mg/ml 1ml IV PRN ×2 (05:27→11:09)
[2018-08-31] MEDS: Meropenem 1 GM in NS 55 ML IVPB SCH ×3 (05:30→23:26)
[2018-08-31] MEDS: Advair 250/50 Inhaler - 14 dose INH SCH ×2 (08:46→20:00)
[2018-08-31] MEDS: Docusate 100mg/10ml Liq ORAL SCH (09:01)
[2018-08-31] MEDS: Metoprolol Tartrate 50mg tab ORAL SCH ×2 (09:01→22:15)
[2018-08-31] MEDS: Donepezil 5mg Tab ORAL SCH (09:03)
[2018-08-31] MEDS: Zinc Sulfate 220mg cap ORAL SCH (09:03)
[2018-08-31] MEDS: Aspirin Baby 81mg ORAL SCH (09:03)
[2018-08-31] MEDS: Levodopa/Carbidopa 25/100 tab ORAL SCH ×3 (09:03→17:48)
[2018-08-31] MEDS: Enoxaparin 40mg Inj SUBQ SCH (09:05)
[2018-08-31 09:26] LABS: BASOPHILS % (AUTO) 0.7 % (0.0-2.0); EOSINOPHILS % (AUTO) 2.6 % (0.0-3.0); HEMATOCRIT 29.8 % (42.0-52.0); LYMPHOCYTES % (AUTO) 21.3 % (20.0-45.0); MEAN CORPUSCULAR VOLUME 86 FL (80-99); NEUTROPHILS % (AUTO) 68.4 % (45.0-75.0); PLATELET COUNT 311 K/UL (150-450); RED BLOOD COUNT 3.48 M/UL (4.70-6.10); RED CELL DISTRIBUTION WIDTH 12.3 % (11.6-14.8); WHITE BLOOD COUNT 8.7 K/UL (4.8-10.8)
[2018-08-31 09:52] LABS: ANION GAP 7 mmol/L (5-15); BLOOD UREA NITROGEN 24 mg/dL (7-18); CALCIUM 8.8 MG/DL (8.5-10.1); CARBON DIOXIDE 29 MMOL/L (21-32); CHLORIDE 108 MMOL/L (98-107); CREATININE 0.9 MG/DL (0.55-1.30); SODIUM 144 MMOL/L (136-145)
--- NOTE | 2018-08-31 10:30 | Pulmonology Progress Note ---
Assessment/Plan Assessment/Plan Impression Respiratory distress Mild hypoxemia Tachycardia Leukocytosis Possible sepsis Anemia Acute respiratory failure with noted respiratory acidosis Lactic acidemia Mild protein calorie malnutrition Acute encephalopathy Plan IV antibiotics as per infectious disease BiPAP PRN Monitor oxygen needs await duplex of the lower extremities DVT prophylaxis Nebulized therapy may need additional bp therapy Prognosis is guarded impression, plan, and exam edited and reviewed in detail care discussed with RN Subjective ROS Limited/Unobtainable: Yes Allergies: Coded Allergies: No Known Allergies (Unverified , 08/24/18) Subjective Hemodynamics improved off BIPAP transferred to floor Objective Last 24 Hour Vital Signs Date Time Temp Pulse Resp B/P (MAP) Pulse Ox O2 Delivery O2 Flow Rate FiO2 08/31/18 09:33 98.6 08/31/18 09:01 82 168/82 08/31/18 08:51 Nasal Cannula 3.0 32 08/31/18 08:51 Nasal Cannula 3.0 32 08/31/18 08:15 Nasal Cannula 3.0 32 08/31/18 08:05 82 24 99 Nasal Cannula 3.0 32 08/31/18 08:00 98.6 100 20 168/82 (110) 97 08/31/18 04:00 98.5 87 18 126/73 (90) 99 08/31/18 01:17 Nasal Cannula 3.0 32 08/31/18 01:17 Nasal Cannula 3.0 32 08/31/18 00:00 98.4 98 18 108/62 (77) 99 08/30/18 21:00 83 119/67 08/30/18 20:40 Nasal Cannula 3.0 32 08/30/18 20:40 Nasal Cannula 3.0 32 08/30/18 20:40 Nasal Cannula 3.0 32 08/30/18 20:40 Nasal Cannula 3.0 32 08/30/18 20:00 Nasal Cannula 3.0 08/30/18 20:00 98.2 83 20 119/67 (84) 100 08/30/18 16:00 67 08/30/18 16:00 98.6 65 18 119/70 (86) 99 08/30/18 16:00 Nasal Cannula 3.0 08/30/18 13:06 80 19 98 Nasal Cannula 2.0 28 08/30/18 12:52 75 22 100 Venturi Mask 4.0 30 08/30/18 12:00 82 08/30/18 12:00 Nasal Cannula 3.0 08/30/18 12:00 97.8 87 19 130/69 (89) 96 Intake and Output 08/30/18 08/31/18 18:59 06:59 Intake Total 735 ml 110 ml Output Total 850 ml 500 ml Balance -115 ml -390 ml Intake Free Water 120 ml IV Total 355 ml 110 ml Tube Feeding 260 ml Output Urine Total 850 ml 500 ml # Bowel Movements 3 Objective WDWN on BIPAP withdrawn clear breath sounds bilaterally without rhonchi or wheeze [id number] without MRG NABS nontender no HSM no CC altered LOC reviewed and examined Microbiology Date/Time Source Procedure Growth Status 08/29/18 22:45 Blood Blood Culture - Preliminary NO GROWTH AFTER 24 HOURS Resulted 08/29/18 22:40 Blood Blood Culture - Preliminary NO GROWTH AFTER 24 HOURS Resulted 08/29/18 19:10 Blood Blood Culture - Preliminary NO GROWTH AFTER 24 HOURS Resulted 08/29/18 19:00 Blood Blood Culture - Preliminary NO GROWTH AFTER 24 HOURS Resulted 08/28/18 19:35 Blood Blood Culture - Preliminary NO GROWTH AFTER 48 HOURS Resulted 08/28/18 19:20 Blood Blood Culture - Preliminary NO GROWTH AFTER 48 HOURS Resulted 08/30/18 01:35 Indwelling Cath Urine Culture - Preliminary NO GROWTH Resulted Laboratory Tests 08/30/18 11:57: Arterial Blood pH 7.476H, Arterial Blood Partial Pressure CO2 35.9, Arterial Blood Partial Pressure O2 91.4, Arterial Blood HCO3 25.9, Arterial Blood Oxygen Saturation 96.6, Arterial Blood Base Excess 2.4H, Arun Test Positive 08/31/18 09:10: White Blood Count 8.7#, Red Blood Count 3.48L, Hemoglobin 10.0L, Hematocrit 29.8L, Mean Corpuscular Volume 86, Mean Corpuscular Hemoglobin 28.7, Mean Corpuscular Hemoglobin Concent 33.6, Red Cell Distribution Width 12.3, Platelet Count 311, Mean Platelet Volume 7.0, Neutrophils (%) (Auto) 68.4, Lymphocytes (% ) (Auto) 21.3, Monocytes (%) (Auto) 7.0, Eosinophils (%) (Auto) 2.6, Basophils ( %) (Auto) 0.7, Sodium Level 144, Potassium Level 4.0, Chloride Level 108H, Carbon Dioxide Level 29, Anion Gap 7, Blood Urea Nitrogen 24H, Creatinine 0.9, Estimat Glomerular Filtration Rate , Glucose Level 109H, Calcium Level 8.8, Magnesium Level 1.9, Thyroid Stimulating Hormone (TSH) 0.538 Current Medications Medications (Trade) Dose Ordered Sig/Santosh Route PRN Reason Start Time Stop Time Status Last Admin Dose Admin Acetaminophen (Tylenol) 650 mg Q4H PRN ORAL Mild Pain/Temp > 100.5 08/30/18 18:19 09/24/18 18:18 08/31/18 09:03 Acetaminophen (Tylenol) 650 mg Q4H PRN RECTAL Mild Pain/Temp > 100.5 08/30/18 18:15 09/28/18 18:14 Albuterol Sulfate (Proventil) 2.5 mg Q6HRT HHN 08/30/18 19:00 08/31/18 18:59 08/31/18 07:39 Aspirin (ASA) 81 mg DAILY ORAL 08/31/18 09:00 09/24/18 08:59 08/31/18 09:03 Atorvastatin Calcium (Lipitor) 40 mg BEDTIME ORAL 08/30/18 21:00 09/24/18 20:59 08/30/18 21:23 Carbidopa/Levodopa (Sinemet 25/100) 1 tab THREE TIMES A DAY ORAL 08/31/18 09:00 09/24/18 08:59 08/31/18 09:03 Dextrose (Dextrose 50%) 25 ml Q30M PRN IV Hypoglycemia 08/30/18 18:20 09/24/18 18:19 Dextrose (Dextrose 50%) 50 ml Q30M PRN IV Hypoglycemia 08/30/18 18:20 09/24/18 18:19 Docusate Sodium (Colace) 100 mg DAILY ORAL 08/31/18 09:00 09/24/18 08:59 08/31/18 09:01 Donepezil HCl (Aricept) 5 mg DAILY ORAL 08/31/18 09:00 09/24/18 08:59 08/31/18 09:03 Enoxaparin Sodium (Lovenox) 40 mg DAILY SUBQ 08/31/18 09:00 09/24/18 08:59 08/31/18 09:05 Famotidine (Pepcid) 20 mg TWICE A DAY ORAL 08/31/18 09:00 09/24/18 08:59 08/31/18 09:01 Insulin Aspart (NovoLOG) EVERY 6 HOURS SUBQ 08/31/18 00:00 09/24/18 05:59 08/31/18 05:39 Linezolid 300 ml @ 300 mls/hr Q12HR IVPB 08/30/18 21:00 09/05/18 22:59 08/31/18 09:11 Lorazepam (Ativan 2mg/ml 1ml) 0.5 mg Q4H PRN IV For Anxiety 08/30/18 18:20 09/05/18 18:19 08/31/18 05:27 Meropenem 1 gm/ Sodium Chloride 55 ml @ 110 mls/hr Q8HR IVPB 08/30/18 22:00 09/03/18 22:14 08/31/18 05:30 Metoprolol Tartrate (Lopressor) 50 mg Q12HR ORAL 08/30/18 21:00 09/28/18 20:59 08/31/18 09:01 Mupirocin (Bactroban Oint) 1 applic BID TOPIC 08/31/18 09:00 09/02/18 18:01 08/31/18 09:47 Ondansetron HCl (Zofran) 4 mg Q6H PRN IVP Nausea & Vomiting 08/30/18 18:21 09/24/18 18:20 Salmeterol Xinafoate/ Fluticasone (Advair 250/50 Diskus) 1 puffs EVERY 12 HOURS INH 08/30/18 21:00 09/24/18 08:59 Tamsulosin HCl (Flomax) 0.4 mg BEDTIME ORAL 08/30/18 21:00 09/24/18 20:59 08/30/18 21:23 Zinc Sulfate (Zinc Sulfate) 220 mg DAILY ORAL 08/31/18 09:00 09/24/18 08:59 08/31/18 09:03 Zolpidem Tartrate (Ambien) 5 mg HSPRN PRN ORAL Insomnia 08/30/18 21:00 09/06/18 20:59 Hernandez Corley MD Aug 31, 2018 10:30
[2018-08-31] MEDS ORDERED: NS 275ml ONE (16:36)
[2018-08-31] MEDS ORDERED: Tubing IV Secondary IV ONE (16:36)
--- NOTE | 2018-08-31 16:50 | Infectious Diseases Prog Note ---
Assessment/Plan Problems: (1) Sepsis due to coagulase-negative staphylococcal infection Assessment & Plan: source most likely his pressure wounds, now improving on zyvox since he was febrile and hypoxemic while on vancomycin , await echo to rule out vegetations, repeated blood culture to confirm clearance is negative so far . (2) Aspiration pneumonia Assessment & Plan: due to MSSA , on zyvox and meropenem with improvement in his fever and leukocytosis . aspiration precaution, keep HOB > 30 degree all the time (3) UTI (urinary tract infection) Assessment & Plan: due to ESBL producing Klebsiella pneumonia and proteus mirabilis , on meropenem for two weeks . change edwards catheter if not done yet (4) COPD (chronic obstructive pulmonary disease) Assessment & Plan: due to the above , continue antibiotics, inhalers and nebulizer therapy (5) Diabetes 1.5, managed as type 2 Assessment & Plan: recommend tight glycemic control (6) Heel ulcer Assessment & Plan: on the left mainly, bone scan ruled out osteomyelitis , continue local wound care and dressing change as per hospital protocol. 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 Constitutional: Reports: no symptoms HEENT: Reports: no symptoms Respiratory: Reports: no symptoms Breasts: Reports: no symptoms Cardiovascular: Reports: no symptoms Gastrointestinal/Abdominal: Reports: no symptoms Genitourinary: Reports: no symptoms Neurologic: Reports: no symptoms Psychiatric: Reports: no symptoms Skin: Reports: no symptoms Endocrine: Reports: no symptoms Hematologic: Reports: no symptoms Musculoskeletal: Reports: no symptoms Allergies: Coded Allergies: No Known Allergies (Unverified , 08/24/18) Subjective He was awake and comfortable, and responsive to verbal commands, was agitated and screaming earlier , on nasal canula sating well, no fever or chills, has cough , but no SOB, no diarrhea Objective Vital Signs Last 24 Hour Vital Signs Date Time Temp Pulse Resp B/P (MAP) Pulse Ox O2 Delivery O2 Flow Rate FiO2 08/31/18 16:00 98.7 97 20 171/102 (125) 95 08/31/18 13:12 Nasal Cannula 3.0 32 08/31/18 13:09 Nasal Cannula 3.0 32 08/31/18 12:00 98.6 79 20 141/88 (105) 98 08/31/18 10:00 91 159/79 (105) 1/25/19 09:33 98.6 08/31/18 09:01 82 168/82 08/31/18 09:00 Nasal Cannula 3.0 08/31/18 08:51 Nasal Cannula 3.0 32 08/31/18 08:51 Nasal Cannula 3.0 32 08/31/18 08:15 Nasal Cannula 3.0 32 08/31/18 08:05 82 24 99 Nasal Cannula 3.0 32 08/31/18 08:00 98.6 100 20 168/82 (110) 97 08/31/18 04:00 98.5 87 18 126/73 (90) 99 08/31/18 01:17 Nasal Cannula 3.0 32 08/31/18 01:17 Nasal Cannula 3.0 32 08/31/18 00:00 98.4 98 18 108/62 (77) 99 08/30/18 21:00 83 119/67 08/30/18 20:40 Nasal Cannula 3.0 32 08/30/18 20:40 Nasal Cannula 3.0 32 08/30/18 20:40 Nasal Cannula 3.0 32 08/30/18 20:40 Nasal Cannula 3.0 32 08/30/18 20:00 Nasal Cannula 3.0 08/30/18 20:00 98.2 83 20 119/67 (84) 100 Height (Feet): 6 Height (Inches): 0.00 Weight (Pounds): 152 General Appearance: no acute distress, cachetic HEENT: normocephalic, atraumatic, anicteric, mucous membranes moist, PERRL, EOMI, pharynx normal, supple, no JVD Respiratory/Chest: chest wall non-tender, no respiratory distress, no accessory muscle use, decreased breath sounds Cardiovascular: normal peripheral pulses, normal rate, regular rhythm, no gallop/murmur, no JVD Abdomen: normal bowel sounds, soft, non tender, no organomegaly, non distended , no mass, no scars Extremities: no cyanosis, no clubbing Skin: no rash, no lesions, ulcers Neurologic/Psychiatric: alert, responsive Lymphatic: no neck adenopathy, no groin adenopathy Musculoskeletal: no effusion, atrophy Microbiology Date/Time Source Procedure Growth Status 08/29/18 22:45 Blood Blood Culture - Preliminary NO GROWTH AFTER 24 HOURS Resulted 08/29/18 22:40 Blood Blood Culture - Preliminary NO GROWTH AFTER 24 HOURS Resulted 08/29/18 19:10 Blood Blood Culture - Preliminary NO GROWTH AFTER 24 HOURS Resulted 08/29/18 19:00 Blood Blood Culture - Preliminary NO GROWTH AFTER 24 HOURS Resulted 08/28/18 19:35 Blood Blood Culture - Preliminary NO GROWTH AFTER 48 HOURS Resulted 08/28/18 19:20 Blood Blood Culture - Preliminary NO GROWTH AFTER 48 HOURS Resulted 08/30/18 01:35 Indwelling Cath Urine Culture - Preliminary NO GROWTH Resulted Laboratory Tests Test 08/31/18 09:10 White Blood Count 8.7 K/UL (4.8-10.8) # Red Blood Count 3.48 M/UL (4.70-6.10) L Hemoglobin 10.0 G/DL (14.2-18.0) L Hematocrit 29.8 % (42.0-52.0) L Mean Corpuscular Volume 86 FL (80-99) Mean Corpuscular Hemoglobin 28.7 PG (27.0-31.0) Mean Corpuscular Hemoglobin Concent 33.6 G/DL (32.0-36.0) Red Cell Distribution Width 12.3 % (11.6-14.8) Platelet Count 311 K/UL (150-450) Mean Platelet Volume 7.0 FL (6.5-10.1) Neutrophils (%) (Auto) 68.4 % (45.0-75.0) Lymphocytes (%) (Auto) 21.3 % (20.0-45.0) Monocytes (%) (Auto) 7.0 % (1.0-10.0) Eosinophils (%) (Auto) 2.6 % (0.0-3.0) Basophils (%) (Auto) 0.7 % (0.0-2.0) Sodium Level 144 MMOL/L (136-145) Potassium Level 4.0 MMOL/L (3.5-5.1) Chloride Level 108 MMOL/L (98-107) H Carbon Dioxide Level 29 MMOL/L (21-32) Anion Gap 7 mmol/L (5-15) Blood Urea Nitrogen 24 mg/dL (7-18) H Creatinine 0.9 MG/DL (0.55-1.30) Estimat Glomerular Filtration Rate mL/min (>60) Glucose Level 109 MG/DL (74-106) H Calcium Level 8.8 MG/DL (8.5-10.1) Magnesium Level 1.9 MG/DL (1.8-2.4) Thyroid Stimulating Hormone (TSH) 0.538 uiU/mL (0.358-3.740) Current Medications Medications (Trade) Dose Ordered Sig/Santosh Route PRN Reason Start Time Stop Time Status Last Admin Dose Admin Acetaminophen (Tylenol) 650 mg Q4H PRN ORAL Mild Pain/Temp > 100.5 08/30/18 18:19 09/24/18 18:18 08/31/18 09:03 Acetaminophen (Tylenol) 650 mg Q4H PRN RECTAL Mild Pain/Temp > 100.5 08/30/18 18:15 09/28/18 18:14 Albuterol Sulfate (Proventil) 2.5 mg Q6HRT HHN 08/30/18 19:00 08/31/18 18:59 08/31/18 13:09 Aspirin (ASA) 81 mg DAILY ORAL 08/31/18 09:00 09/24/18 08:59 08/31/18 09:03 Atorvastatin Calcium (Lipitor) 40 mg BEDTIME ORAL 08/30/18 21:00 09/24/18 20:59 08/30/18 21:23 Carbidopa/Levodopa (Sinemet 25/100) 1 tab THREE TIMES A DAY ORAL 08/31/18 09:00 09/24/18 08:59 08/31/18 15:29 Dextrose (Dextrose 50%) 25 ml Q30M PRN IV Hypoglycemia 08/30/18 18:20 09/24/18 18:19 Dextrose (Dextrose 50%) 50 ml Q30M PRN IV Hypoglycemia 08/30/18 18:20 09/24/18 18:19 Docusate Sodium (Colace) 100 mg DAILY ORAL 08/31/18 09:00 09/24/18 08:59 08/31/18 09:01 Donepezil HCl (Aricept) 5 mg DAILY ORAL 08/31/18 09:00 09/24/18 08:59 08/31/18 09:03 Enoxaparin Sodium (Lovenox) 40 mg DAILY SUBQ 08/31/18 09:00 09/24/18 08:59 08/31/18 09:05 Famotidine (Pepcid) 20 mg TWICE A DAY ORAL 08/31/18 09:00 09/24/18 08:59 08/31/18 09:01 Insulin Aspart (NovoLOG) EVERY 6 HOURS SUBQ 08/31/18 00:00 09/24/18 05:59 08/31/18 05:39 Linezolid 300 ml @ 300 mls/hr Q12HR IVPB 08/30/18 21:00 09/05/18 22:59 08/31/18 09:11 Lorazepam (Ativan 2mg/ml 1ml) 0.5 mg Q4H PRN IV For Anxiety 08/30/18 18:20 09/05/18 18:19 08/31/18 11:09 Meropenem 1 gm/ Sodium Chloride 55 ml @ 110 mls/hr Q8HR IVPB 08/30/18 22:00 09/03/18 22:14 08/31/18 15:30 Metoprolol Tartrate (Lopressor) 50 mg Q12HR ORAL 08/30/18 21:00 09/28/18 20:59 08/31/18 09:01 Mupirocin (Bactroban Oint) 1 applic BID TOPIC 08/31/18 09:00 09/02/18 18:01 08/31/18 09:47 Ondansetron HCl (Zofran) 4 mg Q6H PRN IVP Nausea & Vomiting 08/30/18 18:21 09/24/18 18:20 Salmeterol Xinafoate/ Fluticasone (Advair 250/50 Diskus) 1 puffs EVERY 12 HOURS INH 08/30/18 21:00 09/24/18 08:59 Tamsulosin HCl (Flomax) 0.4 mg BEDTIME ORAL 08/30/18 21:00 09/24/18 20:59 08/30/18 21:23 Zinc Sulfate (Zinc Sulfate) 220 mg DAILY ORAL 08/31/18 09:00 09/24/18 08:59 08/31/18 09:03 Zolpidem Tartrate (Ambien) 5 mg HSPRN PRN ORAL Insomnia 08/30/18 21:00 09/06/18 20:59 Vilma Cedeño M.D. Aug 31, 2018 16:50
[2018-08-31] MEDS ORDERED: Albuterol ud Inhalation HHN SCH (21:30)
[2018-08-31] MEDS: Tamsulosin 0.4mg cap ORAL SCH (22:14)
[2018-08-31] MEDS: Atorvastatin 20mg tab ORAL SCH (22:15)
[2018-09-01] VITALS: BP 130/74
[2018-09-01] MEDS: Albuterol ud Inhalation HHN SCH ×5 (01:00→21:06)
[2018-09-01 04:00] VITALS: BP 134/78
[2018-09-01] MEDS: Meropenem 1 GM in NS 55 ML IVPB SCH ×3 (05:21→23:19)
[2018-09-01] MEDS: NovoLOG Insulin Flexpen SUBQ SCH ×5 (06:00→23:16)
[2018-09-01] MEDS ORDERED: Norco 5mg/325mg tab ORAL PRN (07:45)
[2018-09-01 08:00] VITALS: BP 122/69
--- NOTE | 2018-09-01 08:09 | Nephrology Progress Note ---
Assessment/Plan Problem List: (1) COPD (chronic obstructive pulmonary disease) Assessment & Plan: - appreciate pulmonary input -s/p aspiration pneumonia, better with iv abx -noted cxr -s/p diuresis -o2 ICD Codes: J44.9 - Chronic obstructive pulmonary disease, unspecified SNOMED: 29509490 Qualifiers: Qualified Codes: J44.9 - Chronic obstructive pulmonary disease, unspecified (2) UTI (urinary tract infection) Assessment & Plan: -esbl, on 2 week abx, edwards care ICD Codes: N39.0 - Urinary tract infection, site not specified SNOMED: 19203499 Qualifiers: Qualified Codes: N39.0 - Urinary tract infection, site not specified (3) Pneumonia Assessment & Plan: -aspiration, MSSA, appreciate pulmonary and id f/u -hhn, o2, f.u cxr, iv abx, sputum cultures ICD Codes: J18.9 - Pneumonia, unspecified organism SNOMED: 679077362 Qualifiers: (4) Diabetes 1.5, managed as type 2 Assessment & Plan: -follow bs, on ssi ICD Codes: E10.9 - Type 1 diabetes mellitus without complications SNOMED: 548134260 (5) Hypothyroid Assessment & Plan: -noted tft ICD Codes: E03.9 - Hypothyroidism, unspecified SNOMED: 97380824 Qualifiers: Qualified Codes: E03.9 - Hypothyroidism, unspecified (6) Dysphagia as late effect of cerebrovascular accident (CVA) Assessment & Plan: -cont tube feeds, held after n/v x 3, no residual now ICD Codes: I69.391 - Dysphagia following cerebral infarction SNOMED: 425309301 Assessment/Plan Bacteremia -cont vanco for now, ID eval appreciated -await bone scan and echo to r/o vegetation dc planning with 2 weeks iv abx. Subjective Date patient seen: Aug 31, 2018 ROS Limited/Unobtainable: Yes Constitutional: Reports: chills, diaphoresis; Denies: no symptoms, fever, malaise, weakness, other HEENT: Denies: no symptoms, eye pain, blurred vision, tearing, double vision, ear pain, ear discharge, nose pain, nose congestion, throat pain, throat swelling, mouth pain, mouth swelling, other Cardiovascular: Denies: no symptoms, chest pain, edema, irregular heart rate, lightheadedness, palpitations, syncope, other Respiratory: Reports: shortness of breath Endocrine: Denies: no symptoms, excessive sweating, flushing, intolerance to cold, intolerance to heat, increased hunger, increased thirst, increased urine, unexplained weight gain, unexplained weight loss, other Hematologic/Lymphatic: Denies: no symptoms, anemia, easy bleeding, easy bruising, other Allergies: Coded Allergies: No Known Allergies (Unverified , 08/24/18) Objective Last 24 Hour Vital Signs Date Time Temp Pulse Resp B/P (MAP) Pulse Ox O2 Delivery O2 Flow Rate FiO2 09/01/18 07:40 Room Air 21 09/01/18 07:40 Room Air 21 09/01/18 07:40 93 Room Air 21 09/01/18 07:40 Room Air 21 09/01/18 04:00 97.5 80 20 134/78 (96) 98 09/01/18 02:00 Nasal Cannula 09/01/18 02:00 Nasal Cannula 09/01/18 00:00 97.5 69 20 130/74 (92) 98 08/31/18 22:15 75 120/75 08/31/18 21:00 Nasal Cannula 3.0 08/31/18 20:03 Nasal Cannula 2.0 28 08/31/18 20:02 92 Nasal Cannula 2.0 28 08/31/18 19:59 Nasal Cannula 08/31/18 19:58 Nasal Cannula 2.0 28 08/31/18 19:58 Nasal Cannula 08/31/18 19:58 Nasal Cannula 2.0 28 08/31/18 19:47 96.6 75 20 120/75 (90) 99 08/31/18 18:13 171/102 08/31/18 16:00 98.7 97 20 171/102 (125) 95 08/31/18 13:12 Nasal Cannula 3.0 32 08/31/18 13:09 Nasal Cannula 3.0 32 08/31/18 12:00 98.6 79 20 141/88 (105) 98 08/31/18 10:00 91 159/79 (105) 08/31/18 09:33 98.6 08/31/18 09:01 82 168/82 08/31/18 09:00 Nasal Cannula 3.0 08/31/18 08:51 Nasal Cannula 3.0 32 08/31/18 08:51 Nasal Cannula 3.0 32 08/31/18 08:15 Nasal Cannula 3.0 32 Intake and Output 08/31/18 09/01/18 18:59 06:59 Intake Total 945 ml 355 ml Output Total 400 ml 600 ml Balance 545 ml -245 ml IV Total 355 ml 355 ml Tube Feeding 590 ml Output Urine Total 400 ml 600 ml # Bowel Movements 2 1 Laboratory Tests 08/31/18 09:10: White Blood Count 8.7#, Red Blood Count 3.48L, Hemoglobin 10.0L, Hematocrit 29.8L, Mean Corpuscular Volume 86, Mean Corpuscular Hemoglobin 28.7, Mean Corpuscular Hemoglobin Concent 33.6, Red Cell Distribution Width 12.3, Platelet Count 311, Mean Platelet Volume 7.0, Neutrophils (%) (Auto) 68.4, Lymphocytes (% ) (Auto) 21.3, Monocytes (%) (Auto) 7.0, Eosinophils (%) (Auto) 2.6, Basophils ( %) (Auto) 0.7, Sodium Level 144, Potassium Level 4.0, Chloride Level 108H, Carbon Dioxide Level 29, Anion Gap 7, Blood Urea Nitrogen 24H, Creatinine 0.9, Estimat Glomerular Filtration Rate , Glucose Level 109H, Calcium Level 8.8, Magnesium Level 1.9, Thyroid Stimulating Hormone (TSH) 0.538 Height (Feet): 6 Height (Inches): 0.00 Weight (Pounds): 152 General Appearance: lethargic, confused EENT: PERRL/EOMI, normal ENT inspection Respiratory/Chest: decreased breath sounds Abdomen: soft, hypoactive bowel sounds Pelvis: normal external exam 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 Sep 01, 2018 08:09
--- NOTE | 2018-09-01 08:10 | Nephrology Progress Note ---
Assessment/Plan Problem List: (1) COPD (chronic obstructive pulmonary disease) Assessment & Plan: - appreciate pulmonary input -s/p aspiration pneumonia, better with iv abx -noted cxr -s/p diuresis -o2 ICD Codes: J44.9 - Chronic obstructive pulmonary disease, unspecified SNOMED: 81203215 Qualifiers: Qualified Codes: J44.9 - Chronic obstructive pulmonary disease, unspecified (2) UTI (urinary tract infection) Assessment & Plan: -esbl, on 2 week abx, edwards care ICD Codes: N39.0 - Urinary tract infection, site not specified SNOMED: 93491109 Qualifiers: Qualified Codes: N39.0 - Urinary tract infection, site not specified (3) Pneumonia Assessment & Plan: -aspiration, MSSA, appreciate pulmonary and id f/u -hhn, o2, f.u cxr, iv abx, sputum cultures ICD Codes: J18.9 - Pneumonia, unspecified organism SNOMED: 554933189 Qualifiers: (4) Diabetes 1.5, managed as type 2 Assessment & Plan: -follow bs, on ssi ICD Codes: E10.9 - Type 1 diabetes mellitus without complications SNOMED: 382658728 (5) Hypothyroid Assessment & Plan: -noted tft ICD Codes: E03.9 - Hypothyroidism, unspecified SNOMED: 50274127 Qualifiers: Qualified Codes: E03.9 - Hypothyroidism, unspecified (6) Dysphagia as late effect of cerebrovascular accident (CVA) Assessment & Plan: -cont tube feeds, held after n/v x 3, no residual now ICD Codes: I69.391 - Dysphagia following cerebral infarction SNOMED: 291340085 Assessment/Plan Bacteremia -cont vanco for now, ID eval appreciated -await bone scan and echo to r/o vegetation dc planning with 2 weeks iv abx. Subjective Date patient seen: Sep 01, 2018 ROS Limited/Unobtainable: Yes Constitutional: Reports: chills, malaise, weakness HEENT: Denies: no symptoms, eye pain, blurred vision, tearing, double vision, ear pain, ear discharge, nose pain, nose congestion, throat pain, throat swelling, mouth pain, mouth swelling, other Cardiovascular: Denies: no symptoms, chest pain, edema, irregular heart rate, lightheadedness, palpitations, syncope, other Respiratory: Reports: shortness of breath Neurologic/Psychiatric: Reports: anxiety, weakness Hematologic/Lymphatic: Denies: no symptoms, anemia, easy bleeding, easy bruising, other Allergies: Coded Allergies: No Known Allergies (Unverified , 08/24/18) Subjective pt. seen and examined s/p ativan for agitation bone scan noted overall better on tube feeds d/w rn Objective Last 24 Hour Vital Signs Date Time Temp Pulse Resp B/P (MAP) Pulse Ox O2 Delivery O2 Flow Rate FiO2 09/01/18 07:40 Room Air 21 09/01/18 07:40 Room Air 21 09/01/18 07:40 93 Room Air 21 09/01/18 07:40 Room Air 21 09/01/18 04:00 97.5 80 20 134/78 (96) 98 09/01/18 02:00 Nasal Cannula 09/01/18 02:00 Nasal Cannula 09/01/18 00:00 97.5 69 20 130/74 (92) 98 08/31/18 22:15 75 120/75 08/31/18 21:00 Nasal Cannula 3.0 08/31/18 20:03 Nasal Cannula 2.0 28 08/31/18 20:02 92 Nasal Cannula 2.0 28 08/31/18 19:59 Nasal Cannula 08/31/18 19:58 Nasal Cannula 2.0 28 08/31/18 19:58 Nasal Cannula 08/31/18 19:58 Nasal Cannula 2.0 28 08/31/18 19:47 96.6 75 20 120/75 (90) 99 08/31/18 18:13 171/102 08/31/18 16:00 98.7 97 20 171/102 (125) 95 08/31/18 13:12 Nasal Cannula 3.0 32 08/31/18 13:09 Nasal Cannula 3.0 32 08/31/18 12:00 98.6 79 20 141/88 (105) 98 08/31/18 10:00 91 159/79 (105) 08/31/18 09:33 98.6 08/31/18 09:01 82 168/82 08/31/18 09:00 Nasal Cannula 3.0 08/31/18 08:51 Nasal Cannula 3.0 32 08/31/18 08:51 Nasal Cannula 3.0 32 08/31/18 08:15 Nasal Cannula 3.0 32 Intake and Output 08/31/18 09/01/18 18:59 06:59 Intake Total 945 ml 355 ml Output Total 400 ml 600 ml Balance 545 ml -245 ml IV Total 355 ml 355 ml Tube Feeding 590 ml Output Urine Total 400 ml 600 ml # Bowel Movements 2 1 Laboratory Tests 08/31/18 09:10: White Blood Count 8.7#, Red Blood Count 3.48L, Hemoglobin 10.0L, Hematocrit 29.8L, Mean Corpuscular Volume 86, Mean Corpuscular Hemoglobin 28.7, Mean Corpuscular Hemoglobin Concent 33.6, Red Cell Distribution Width 12.3, Platelet Count 311, Mean Platelet Volume 7.0, Neutrophils (%) (Auto) 68.4, Lymphocytes (% ) (Auto) 21.3, Monocytes (%) (Auto) 7.0, Eosinophils (%) (Auto) 2.6, Basophils ( %) (Auto) 0.7, Sodium Level 144, Potassium Level 4.0, Chloride Level 108H, Carbon Dioxide Level 29, Anion Gap 7, Blood Urea Nitrogen 24H, Creatinine 0.9, Estimat Glomerular Filtration Rate , Glucose Level 109H, Calcium Level 8.8, Magnesium Level 1.9, Thyroid Stimulating Hormone (TSH) 0.538 Height (Feet): 6 Height (Inches): 0.00 Weight (Pounds): 152 General Appearance: lethargic, confused, mild distress EENT: PERRL/EOMI, pale conjunctivae Neck: non-tender Cardiovascular: normal rate Respiratory/Chest: decreased breath sounds Genitourinary/Rectal: normal genital exam Edema: trace edema Neurologic: abnormal gait, responsive Jaxon Amaro M.D. Sep 01, 2018 08:10
[2018-09-01] MEDS: Advair 250/50 Inhaler - 14 dose INH SCH ×2 (08:54→21:00)
[2018-09-01] MEDS: Zinc Sulfate 220mg cap ORAL SCH (09:05)
[2018-09-01] MEDS: Donepezil 5mg Tab ORAL SCH (09:05)
[2018-09-01] MEDS: Levodopa/Carbidopa 25/100 tab ORAL SCH ×3 (09:05→17:49)
[2018-09-01] MEDS: Docusate 100mg/10ml Liq ORAL SCH (09:05)
[2018-09-01] MEDS: Enoxaparin 40mg Inj SUBQ SCH (09:06)
[2018-09-01] MEDS: Aspirin Baby 81mg ORAL SCH (09:06)
[2018-09-01] MEDS: Metoprolol Tartrate 50mg tab ORAL SCH ×2 (09:06→21:47)
[2018-09-01 11:48] VITALS: BP 125/72
--- NOTE | 2018-09-01 13:38 | Pulmonology Progress Note ---
Assessment/Plan Assessment/Plan Pulmonary Progress Note Assessment/Plan Impression Respiratory distress Mild hypoxemia Tachycardia Leukocytosis Possible sepsis Anemia Acute respiratory failure with noted respiratory acidosis Lactic acidemia Mild protein calorie malnutrition Acute encephalopathy Plan IV antibiotics as per infectious disease BiPAP PRN Monitor oxygen needs await duplex of the lower extremities DVT prophylaxis Nebulized therapy may need additional bp therapy Prognosis is guarded impression, plan, and exam edited and reviewed in detail care discussed with RN Subjective ROS Limited/Unobtainable: Yes Allergies: Coded Allergies: No Known Allergies (Unverified , 08/24/18) Subjective Hemodynamics improved off BIPAP transferred to floor Objective Vital Signs Noted WDWN on BIPAP withdrawn clear breath sounds bilaterally without rhonchi or wheeze [id number] without MRG NABS nontender no HSM no CC altered LOC reviewed and examined Microbiology Date/Time Source Procedure Growth Status 08/29/18 22:45 Blood Blood Culture - Preliminary NO GROWTH AFTER 24 HOURS Resulted 08/29/18 22:40 Blood Blood Culture - Preliminary NO GROWTH AFTER 24 HOURS Resulted 08/29/18 19:10 Blood Blood Culture - Preliminary NO GROWTH AFTER 24 HOURS Resulted 08/29/18 19:00 Blood Blood Culture - Preliminary NO GROWTH AFTER 24 HOURS Resulted 08/28/18 19:35 Blood Blood Culture - Preliminary NO GROWTH AFTER 48 HOURS Resulted 08/28/18 19:20 Blood Blood Culture - Preliminary NO GROWTH AFTER 48 HOURS Resulted 08/30/18 01:35 Indwelling Cath Urine Culture - Preliminary NO GROWTH Resulted Laboratory Tests 08/30/18 11:57: Arterial Blood pH 7.476H, Arterial Blood Partial Pressure CO2 35.9, Arterial Blood Partial Pressure O2 91.4, Arterial Blood HCO3 25.9, Arterial Blood Oxygen Saturation 96.6, Arterial Blood Base Excess 2.4H, Arun Test Positive 08/31/18 09:10: White Blood Count 8.7#, Red Blood Count 3.48L, Hemoglobin 10.0L, Hematocrit 29.8L, Mean Corpuscular Volume 86, Mean Corpuscular Hemoglobin 28.7, Mean Corpuscular Hemoglobin Concent 33.6, Red Cell Distribution Width 12.3, Platelet Count 311, Mean Platelet Volume 7.0, Neutrophils (%) (Auto) 68.4, Lymphocytes (% ) (Auto) 21.3, Monocytes (%) (Auto) 7.0, Eosinophils (%) (Auto) 2.6, Basophils ( %) (Auto) 0.7, Sodium Level 144, Potassium Level 4.0, Chloride Level 108H, Carbon Dioxide Level 29, Anion Gap 7, Blood Urea Nitrogen 24H, Creatinine 0.9, Estimat Glomerular Filtration Rate , Glucose Level 109H, Calcium Level 8.8, Magnesium Level 1.9, Thyroid Stimulating Hormone (TSH) 0.538 Current Medications Medications (Trade) Dose Ordered Sig/Santosh Route PRN Reason Start Time Stop Time Status Last Admin Dose Admin Acetaminophen (Tylenol) 650 mg Q4H PRN ORAL Mild Pain/Temp > 100.5 08/30/18 18:19 09/24/18 18:18 08/31/18 09:03 Acetaminophen (Tylenol) 650 mg Q4H PRN RECTAL Mild Pain/Temp > 100.5 08/30/18 18:15 09/28/18 18:14 Albuterol Sulfate (Proventil) 2.5 mg Q6HRT HHN 08/30/18 19:00 08/31/18 18:59 08/31/18 07:39 Aspirin (ASA) 81 mg DAILY ORAL 08/31/18 09:00 09/24/18 08:59 08/31/18 09:03 Atorvastatin Calcium (Lipitor) 40 mg BEDTIME ORAL 08/30/18 21:00 09/24/18 20:59 08/30/18 21:23 Carbidopa/Levodopa (Sinemet 25/100) 1 tab THREE TIMES A DAY ORAL 08/31/18 09:00 09/24/18 08:59 08/31/18 09:03 Dextrose (Dextrose 50%) 25 ml Q30M PRN IV Hypoglycemia 08/30/18 18:20 09/24/18 18:19 Dextrose (Dextrose 50%) 50 ml Q30M PRN IV Hypoglycemia 08/30/18 18:20 09/24/18 18:19 Docusate Sodium (Colace) 100 mg DAILY ORAL 08/31/18 09:00 09/24/18 08:59 08/31/18 09:01 Donepezil HCl (Aricept) 5 mg DAILY ORAL 08/31/18 09:00 09/24/18 08:59 08/31/18 09:03 Enoxaparin Sodium (Lovenox) 40 mg DAILY SUBQ 08/31/18 09:00 09/24/18 08:59 08/31/18 09:05 Famotidine (Pepcid) 20 mg TWICE A DAY ORAL 08/31/18 09:00 09/24/18 08:59 08/31/18 09:01 Insulin Aspart (NovoLOG) EVERY 6 HOURS SUBQ 08/31/18 00:00 09/24/18 05:59 08/31/18 05:39 Linezolid 300 ml @ 300 mls/hr Q12HR IVPB 08/30/18 21:00 09/05/18 22:59 08/31/18 09:11 Lorazepam (Ativan 2mg/ml 1ml) 0.5 mg Q4H PRN IV For Anxiety 08/30/18 18:20 09/05/18 18:19 08/31/18 05:27 Meropenem 1 gm/ Sodium Chloride 55 ml @ 110 mls/hr Q8HR IVPB 08/30/18 22:00 09/03/18 22:14 08/31/18 05:30 Metoprolol Tartrate (Lopressor) 50 mg Q12HR ORAL 08/30/18 21:00 09/28/18 20:59 08/31/18 09:01 Mupirocin (Bactroban Oint) 1 applic BID TOPIC 08/31/18 09:00 09/02/18 18:01 08/31/18 09:47 Ondansetron HCl (Zofran) 4 mg Q6H PRN IVP Nausea & Vomiting 08/30/18 18:21 09/24/18 18:20 Salmeterol Xinafoate/ Fluticasone (Advair 250/50 Diskus) 1 puffs EVERY 12 HOURS INH 08/30/18 21:00 09/24/18 08:59 Tamsulosin HCl (Flomax) 0.4 mg BEDTIME ORAL 08/30/18 21:00 09/24/18 20:59 08/30/18 21:23 Zinc Sulfate (Zinc Sulfate) 220 mg DAILY ORAL 08/31/18 09:00 09/24/18 08:59 08/31/18 09:03 Zolpidem Tartrate (Ambien) 5 mg HSPRN PRN ORAL Insomnia 08/30/18 21:00 09/06/18 20:59 Subjective ROS Limited/Unobtainable: No Allergies: Coded Allergies: No Known Allergies (Unverified , 08/24/18) Objective Last 24 Hour Vital Signs Date Time Temp Pulse Resp B/P (MAP) Pulse Ox O2 Delivery O2 Flow Rate FiO2 09/01/18 11:48 98.2 75 20 125/72 (89) 98 09/01/18 11:35 97.7 09/01/18 09:06 84 122/69 09/01/18 09:00 Nasal Cannula 3.0 09/01/18 08:54 Room Air 21 09/01/18 08:54 Room Air 21 09/01/18 08:00 97.7 84 20 122/69 (86) 98 09/01/18 07:40 Room Air 21 09/01/18 07:40 Room Air 21 09/01/18 07:40 93 Room Air 21 09/01/18 07:40 Room Air 21 09/01/18 04:00 97.5 80 20 134/78 (96) 98 09/01/18 02:00 Nasal Cannula 09/01/18 02:00 Nasal Cannula 09/01/18 00:00 97.5 69 20 130/74 (92) 98 08/31/18 22:15 75 120/75 08/31/18 21:00 Nasal Cannula 3.0 08/31/18 20:03 Nasal Cannula 2.0 28 08/31/18 20:02 92 Nasal Cannula 2.0 28 08/31/18 19:59 Nasal Cannula 08/31/18 19:58 Nasal Cannula 2.0 28 08/31/18 19:58 Nasal Cannula 08/31/18 19:58 Nasal Cannula 2.0 28 08/31/18 19:47 96.6 75 20 120/75 (90) 99 08/31/18 18:13 171/102 08/31/18 16:00 98.7 97 20 171/102 (125) 95 Intake and Output 08/31/18 09/01/18 18:59 06:59 Intake Total 945 ml 355 ml Output Total 400 ml 600 ml Balance 545 ml -245 ml IV Total 355 ml 355 ml Tube Feeding 590 ml Output Urine Total 400 ml 600 ml # Bowel Movements 2 1 Microbiology Date/Time Source Procedure Growth Status 08/29/18 22:45 Blood Blood Culture - Preliminary NO GROWTH AFTER 48 HOURS Resulted 08/29/18 22:40 Blood Blood Culture - Preliminary NO GROWTH AFTER 48 HOURS Resulted 08/29/18 19:10 Blood Blood Culture - Preliminary NO GROWTH AFTER 48 HOURS Resulted 08/29/18 19:00 Blood Blood Culture - Preliminary NO GROWTH AFTER 48 HOURS Resulted 08/30/18 01:35 Indwelling Cath Urine Culture - Final NO GROWTH AFTER 48 HOURS Complete Current Medications Medications (Trade) Dose Ordered Sig/Santosh Route PRN Reason Start Time Stop Time Status Last Admin Dose Admin Acetaminophen (Tylenol) 650 mg Q4H PRN ORAL Mild Pain/Temp > 100.5 08/30/18 18:19 09/24/18 18:18 09/01/18 11:05 Acetaminophen (Tylenol) 650 mg Q4H PRN RECTAL Mild Pain/Temp > 100.5 08/30/18 18:15 09/28/18 18:14 Albuterol Sulfate (Proventil) 2.5 mg Q6HRT HHN 09/01/18 01:00 09/06/18 00:59 Aspirin (ASA) 81 mg DAILY ORAL 08/31/18 09:00 09/24/18 08:59 09/01/18 09:06 Atorvastatin Calcium (Lipitor) 40 mg BEDTIME ORAL 08/30/18 21:00 09/24/18 20:59 08/31/18 22:15 Carbidopa/Levodopa (Sinemet 25/100) 1 tab THREE TIMES A DAY ORAL 08/31/18 09:00 09/24/18 08:59 09/01/18 12:10 Clonidine HCl (Catapres Tab) 0.1 mg Q6H PRN ORAL SBP > 150mmHg 08/31/18 18:00 09/30/18 17:59 08/31/18 18:13 Dextrose (Dextrose 50%) 25 ml Q30M PRN IV Hypoglycemia 08/30/18 18:20 09/24/18 18:19 Dextrose (Dextrose 50%) 50 ml Q30M PRN IV Hypoglycemia 08/30/18 18:20 09/24/18 18:19 Docusate Sodium (Colace) 100 mg DAILY ORAL 08/31/18 09:00 09/24/18 08:59 09/01/18 09:05 Donepezil HCl (Aricept) 5 mg DAILY ORAL 08/31/18 09:00 09/24/18 08:59 09/01/18 09:05 Enoxaparin Sodium (Lovenox) 40 mg DAILY SUBQ 08/31/18 09:00 09/24/18 08:59 09/01/18 09:06 Famotidine (Pepcid) 20 mg TWICE A DAY ORAL 08/31/18 09:00 09/24/18 08:59 09/01/18 09:13 Insulin Aspart (NovoLOG) EVERY 6 HOURS SUBQ 08/31/18 00:00 09/24/18 05:59 09/01/18 12:19 Linezolid 300 ml @ 300 mls/hr Q12HR IVPB 08/30/18 21:00 09/05/18 22:59 09/01/18 09:12 Lorazepam (Ativan 2mg/ml 1ml) 0.5 mg Q4H PRN IV For Anxiety 08/30/18 18:20 09/05/18 18:19 08/31/18 11:09 Meropenem 1 gm/ Sodium Chloride 55 ml @ 110 mls/hr Q8HR IVPB 08/30/18 22:00 09/03/18 22:14 09/01/18 13:31 Metoprolol Tartrate (Lopressor) 50 mg Q12HR ORAL 08/30/18 21:00 09/28/18 20:59 09/01/18 09:06 Mupirocin (Bactroban Oint) 1 applic BID TOPIC 08/31/18 09:00 09/02/18 18:01 09/01/18 09:12 Ondansetron HCl (Zofran) 4 mg Q6H PRN IVP Nausea & Vomiting 08/30/18 18:21 09/24/18 18:20 Salmeterol Xinafoate/ Fluticasone (Advair 250/50 Diskus) 1 puffs EVERY 12 HOURS INH 08/30/18 21:00 09/24/18 08:59 Tamsulosin HCl (Flomax) 0.4 mg BEDTIME ORAL 08/30/18 21:00 09/24/18 20:59 08/31/18 22:14 Zinc Sulfate (Zinc Sulfate) 220 mg DAILY ORAL 08/31/18 09:00 09/24/18 08:59 09/01/18 09:05 Zolpidem Tartrate (Ambien) 5 mg HSPRN PRN ORAL Insomnia 08/30/18 21:00 09/06/18 20:59 Migel Terrazas MD Sep 01, 2018 13:38
--- NOTE | 2018-09-01 14:57 | Infectious Diseases Prog Note ---
Assessment/Plan Problems: (1) Sepsis due to coagulase-negative staphylococcal infection Assessment & Plan: source most likely his pressure wounds, now improving on zyvox since he was febrile and hypoxemic while on vancomycin , await echo to rule out vegetations, repeated blood culture to confirm clearance is negative so far . EOT 09/11/18 (2) Aspiration pneumonia Assessment & Plan: due to MSSA , on zyvox and meropenem with improvement in his fever and leukocytosis . aspiration precaution, keep HOB > 30 degree all the time (3) UTI (urinary tract infection) Assessment & Plan: due to ESBL producing Klebsiella pneumonia and proteus mirabilis , on meropenem for two weeks .EOT 09/11/18 (4) COPD (chronic obstructive pulmonary disease) Assessment & Plan: due to the above , continue antibiotics, inhalers and nebulizer therapy (5) Diabetes 1.5, managed as type 2 Assessment & Plan: recommend tight glycemic control (6) Heel ulcer Assessment & Plan: on the left mainly, bone scan ruled out osteomyelitis , continue local wound care and dressing change as per hospital protocol. 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 Constitutional: Reports: no symptoms HEENT: Reports: no symptoms Respiratory: Reports: dry cough Breasts: Reports: no symptoms Cardiovascular: Reports: no symptoms Gastrointestinal/Abdominal: Reports: no symptoms Genitourinary: Reports: no symptoms Neurologic: Reports: no symptoms Psychiatric: Reports: no symptoms Skin: Reports: no symptoms Endocrine: Reports: no symptoms Hematologic: Reports: no symptoms Musculoskeletal: Reports: no symptoms Allergies: Coded Allergies: No Known Allergies (Unverified , 08/24/18) Subjective He was awake and comfortable, and responsive to verbal commands, was anxious while getting neb treatment . on nasal canula sating well, no fever or chills, has cough , but no SOB, no diarrhea Objective Vital Signs Last 24 Hour Vital Signs Date Time Temp Pulse Resp B/P (MAP) Pulse Ox O2 Delivery O2 Flow Rate FiO2 09/01/18 14:01 85 24 99 Nasal Cannula 3.0 32 09/01/18 13:51 82 24 98 Nasal Cannula 3.0 32 09/01/18 11:48 98.2 75 20 125/72 (89) 98 09/01/18 11:35 97.7 09/01/18 09:06 84 122/69 09/01/18 09:00 Nasal Cannula 3.0 09/01/18 08:54 Room Air 21 09/01/18 08:54 Room Air 21 09/01/18 08:00 97.7 84 20 122/69 (86) 98 09/01/18 07:40 Room Air 21 09/01/18 07:40 Room Air 21 09/01/18 07:40 93 Room Air 21 09/01/18 07:40 Room Air 21 09/01/18 04:00 97.5 80 20 134/78 (96) 98 09/01/18 02:00 Nasal Cannula 09/01/18 02:00 Nasal Cannula 09/01/18 00:00 97.5 69 20 130/74 (92) 98 08/31/18 22:15 75 120/75 08/31/18 21:00 Nasal Cannula 3.0 08/31/18 20:03 Nasal Cannula 2.0 28 08/31/18 20:02 92 Nasal Cannula 2.0 28 08/31/18 19:59 Nasal Cannula 08/31/18 19:58 Nasal Cannula 2.0 28 08/31/18 19:58 Nasal Cannula 08/31/18 19:58 Nasal Cannula 2.0 28 08/31/18 19:47 96.6 75 20 120/75 (90) 99 08/31/18 18:13 171/102 08/31/18 16:00 98.7 97 20 171/102 (125) 95 Height (Feet): 6 Height (Inches): 0.00 Weight (Pounds): 152 General Appearance: WD/WN, no acute distress HEENT: normocephalic, atraumatic, anicteric, mucous membranes moist, PERRL Respiratory/Chest: chest wall non-tender, lungs clear, normal breath sounds, no respiratory distress, no accessory muscle use Cardiovascular: normal peripheral pulses, normal rate, regular rhythm, no gallop/murmur, no JVD Abdomen: normal bowel sounds, soft, non tender, no organomegaly, non distended , no mass, no scars Extremities: no cyanosis, no clubbing Skin: no rash, no lesions, no ulcers Neurologic/Psychiatric: alert, oriented x 3, responsive Lymphatic: no neck adenopathy, no groin adenopathy Musculoskeletal: normal muscle bulk, no effusion Microbiology Date/Time Source Procedure Growth Status 08/29/18 22:45 Blood Blood Culture - Preliminary NO GROWTH AFTER 48 HOURS Resulted 08/29/18 22:40 Blood Blood Culture - Preliminary NO GROWTH AFTER 48 HOURS Resulted 08/29/18 19:10 Blood Blood Culture - Preliminary NO GROWTH AFTER 48 HOURS Resulted 08/29/18 19:00 Blood Blood Culture - Preliminary NO GROWTH AFTER 48 HOURS Resulted 08/30/18 01:35 Indwelling Cath Urine Culture - Final NO GROWTH AFTER 48 HOURS Complete Current Medications Medications (Trade) Dose Ordered Sig/Santosh Route PRN Reason Start Time Stop Time Status Last Admin Dose Admin Acetaminophen (Tylenol) 650 mg Q4H PRN ORAL Mild Pain/Temp > 100.5 08/30/18 18:19 09/24/18 18:18 09/01/18 11:05 Acetaminophen (Tylenol) 650 mg Q4H PRN RECTAL Mild Pain/Temp > 100.5 08/30/18 18:15 09/28/18 18:14 Albuterol Sulfate (Proventil) 2.5 mg Q6HRT HHN 09/01/18 01:00 09/06/18 00:59 09/01/18 13:51 Aspirin (ASA) 81 mg DAILY ORAL 08/31/18 09:00 09/24/18 08:59 09/01/18 09:06 Atorvastatin Calcium (Lipitor) 40 mg BEDTIME ORAL 08/30/18 21:00 09/24/18 20:59 08/31/18 22:15 Carbidopa/Levodopa (Sinemet 25/100) 1 tab THREE TIMES A DAY ORAL 08/31/18 09:00 09/24/18 08:59 09/01/18 12:10 Clonidine HCl (Catapres Tab) 0.1 mg Q6H PRN ORAL SBP > 150mmHg 08/31/18 18:00 09/30/18 17:59 08/31/18 18:13 Dextrose (Dextrose 50%) 25 ml Q30M PRN IV Hypoglycemia 08/30/18 18:20 09/24/18 18:19 Dextrose (Dextrose 50%) 50 ml Q30M PRN IV Hypoglycemia 08/30/18 18:20 09/24/18 18:19 Docusate Sodium (Colace) 100 mg DAILY ORAL 08/31/18 09:00 09/24/18 08:59 09/01/18 09:05 Donepezil HCl (Aricept) 5 mg DAILY ORAL 08/31/18 09:00 09/24/18 08:59 09/01/18 09:05 Enoxaparin Sodium (Lovenox) 40 mg DAILY SUBQ 08/31/18 09:00 09/24/18 08:59 09/01/18 09:06 Famotidine (Pepcid) 20 mg TWICE A DAY ORAL 08/31/18 09:00 09/24/18 08:59 09/01/18 09:13 Insulin Aspart (NovoLOG) EVERY 6 HOURS SUBQ 08/31/18 00:00 09/24/18 05:59 09/01/18 12:19 Linezolid 300 ml @ 300 mls/hr Q12HR IVPB 08/30/18 21:00 09/05/18 22:59 09/01/18 09:12 Lorazepam (Ativan 2mg/ml 1ml) 0.5 mg Q4H PRN IV For Anxiety 08/30/18 18:20 09/05/18 18:19 08/31/18 11:09 Meropenem 1 gm/ Sodium Chloride 55 ml @ 110 mls/hr Q8HR IVPB 08/30/18 22:00 09/03/18 22:14 09/01/18 13:31 Metoprolol Tartrate (Lopressor) 50 mg Q12HR ORAL 08/30/18 21:00 09/28/18 20:59 09/01/18 09:06 Mupirocin (Bactroban Oint) 1 applic BID TOPIC 08/31/18 09:00 09/02/18 18:01 09/01/18 09:12 Ondansetron HCl (Zofran) 4 mg Q6H PRN IVP Nausea & Vomiting 08/30/18 18:21 09/24/18 18:20 Salmeterol Xinafoate/ Fluticasone (Advair 250/50 Diskus) 1 puffs EVERY 12 HOURS INH 08/30/18 21:00 09/24/18 08:59 Tamsulosin HCl (Flomax) 0.4 mg BEDTIME ORAL 08/30/18 21:00 09/24/18 20:59 08/31/18 22:14 Zinc Sulfate (Zinc Sulfate) 220 mg DAILY ORAL 08/31/18 09:00 09/24/18 08:59 09/01/18 09:05 Zolpidem Tartrate (Ambien) 5 mg HSPRN PRN ORAL Insomnia 08/30/18 21:00 09/06/18 20:59 Vilma Cedeño M.D. Sep 01, 2018 14:57
[2018-09-01] MEDS: Norco 5mg/325mg tab GT PRN (15:06)
[2018-09-01 16:00] VITALS: BP 125/71
[2018-09-01] MEDS ORDERED: Tubing IV Secondary IV ONE (16:57)
[2018-09-01] MEDS ORDERED: Sterile Water Irrig 1000ml IRRIG ONE (16:57)
[2018-09-01] MEDS: LORazepam Inj 2mg/ml 1ml IV PRN (18:03)
[2018-09-01 20:00] VITALS: BP 128/75
[2018-09-01] MEDS: Atorvastatin 20mg tab ORAL SCH (21:46)
[2018-09-01] MEDS: Tamsulosin 0.4mg cap ORAL SCH (21:47)
[2018-09-02] VITALS: BP 122/72
[2018-09-02] MEDS: Albuterol ud Inhalation HHN SCH ×4 (01:00→19:00)
[2018-09-02 04:00] VITALS: BP 122/68
[2018-09-02] MEDS: NovoLOG Insulin Flexpen SUBQ SCH ×3 (05:55→17:54)
[2018-09-02] MEDS: Meropenem 1 GM in NS 55 ML IVPB SCH ×3 (05:57→22:01)
[2018-09-02 07:07] LABS: BASOPHILS % (AUTO) 0.8 % (0.0-2.0); EOSINOPHILS % (AUTO) 7.3 % (0.0-3.0); HEMATOCRIT 29.6 % (42.0-52.0); HEMOGLOBIN 9.8 G/DL (14.2-18.0); LYMPHOCYTES % (AUTO) 34.9 % (20.0-45.0); MEAN CORPUSCULAR VOLUME 86 FL (80-99); MONOCYTES % (AUTO) 6.8 % (1.0-10.0); NEUTROPHILS % (AUTO) 50.1 % (45.0-75.0); PLATELET COUNT 297 K/UL (150-450); RED BLOOD COUNT 3.45 M/UL (4.70-6.10); RED CELL DISTRIBUTION WIDTH 12.6 % (11.6-14.8); WHITE BLOOD COUNT 4.7 K/UL (4.8-10.8)
[2018-09-02 07:24] LABS: ANION GAP 8 mmol/L (5-15); BLOOD UREA NITROGEN 11 mg/dL (7-18); CALCIUM 8.8 MG/DL (8.5-10.1); CARBON DIOXIDE 28 MMOL/L (21-32); CHLORIDE 105 MMOL/L (98-107); CREATININE 0.7 MG/DL (0.55-1.30); POTASSIUM 3.8 MMOL/L (3.5-5.1); SODIUM 141 MMOL/L (136-145)
[2018-09-02 08:00] VITALS: BP 122/73
[2018-09-02] MEDS: Advair 250/50 Inhaler - 14 dose INH SCH ×2 (08:13→20:20)
[2018-09-02] MEDS ORDERED: AMBIEN5 MG ORAL (08:44)
[2018-09-02] MEDS ORDERED: MEROPENEM1 GM IV (08:44)
[2018-09-02] MEDS ORDERED: ALBUTEROL2.5 MG/3 M HHN (08:44)
[2018-09-02] MEDS ORDERED: ZYVOX600 MG/300 IVPB (08:44)
[2018-09-02] MEDS ORDERED: METOPROLOL TART50 MG ORAL (08:44)
[2018-09-02] MEDS ORDERED: CLONIDINE0.1 MG ORAL (08:44)
--- NOTE | 2018-09-02 08:47 | Discharge Summary ---
Discharge Summary Hospital Course Date of Admission Aug 24, 2018 at 21:23 Date of Discharge Admitting Diagnosis PNEUMONIA HPI Bradley Talamantes is a 73 year old male who was admitted on Aug 24, 2018 at 21: 23 for Pneumonia. in hospital pt treated for sepsis from wounds, uti, aspirastion pneumonia and respiratory failure. Pt. seen by ID, has improved with iv meropenem, zyvox, which he needs for 7 more days. he is currently on tube feeds, mental status at baseline, afib controlled with [facility] Hospital Course Bacteremia -cont vanco for now, ID ge appreciated -await bone scan and echo to r/o vegetation dc planning with 2 weeks iv abx. Discharge Condition Upon Discharge: stable Discharge Disposition Patient was discharged to [facility] Discharge Diagnoses: (1) COPD (chronic obstructive pulmonary disease) (2) UTI (urinary tract infection) (3) Diabetes 1.5, managed as type 2 (4) Hypothyroid (5) Dysphagia as late effect of cerebrovascular accident (CVA) (6) Pneumonia (7) Aspiration pneumonia (8) Sepsis due to coagulase-negative staphylococcal infection (9) Heel ulcer (10) Sacral decubitus ulcer Jaxon Amaro M.D. Sep 02, 2018 08:47
[2018-09-02] MEDS: Zinc Sulfate 220mg cap ORAL SCH (09:02)
[2018-09-02] MEDS: Aspirin Baby 81mg ORAL SCH (09:02)
[2018-09-02] MEDS: Donepezil 5mg Tab ORAL SCH (09:02)
[2018-09-02] MEDS: Metoprolol Tartrate 50mg tab ORAL SCH ×3 (09:02→21:00)
[2018-09-02] MEDS: Docusate 100mg/10ml Liq ORAL SCH (09:02)
[2018-09-02] MEDS: Levodopa/Carbidopa 25/100 tab ORAL SCH ×3 (09:02→17:54)
[2018-09-02] MEDS: Enoxaparin 40mg Inj SUBQ SCH (09:03)
[2018-09-02] MEDS ORDERED: MEROPENEM-1 GM/50 ML IV (10:46)
[2018-09-02] MEDS ORDERED: ZYVOX600 MG ORAL (10:47)
--- NOTE | 2018-09-02 10:55 | Pulmonology Progress Note ---
Assessment/Plan Assessment/Plan Pulmonary Progress Note Assessment/Plan Impression Respiratory distress/sepsis resolved Anemia Mild protein calorie malnutrition Encephalopathy Plan Antibiotics as per infectious disease Monitor oxygen needs DVT prophylaxis Nebulized therapy may need additional bp therapy Prognosis is guarded impression, plan, and exam edited and reviewed in detail care discussed with RN Subjective ROS Limited/Unobtainable: Yes Allergies: Coded Allergies: No Known Allergies (Unverified , 08/24/18) Subjective Hemodynamics improved off BIPAP transferred to floor Objective Vital Signs Noted WDWN on BIPAP withdrawn clear breath sounds bilaterally without rhonchi or wheeze [id number] without MRG NABS nontender no HSM no CC altered LOC reviewed and examined Microbiology Date/Time Source Procedure Growth Status 08/29/18 22:45 Blood Blood Culture - Preliminary NO GROWTH AFTER 24 HOURS Resulted 08/29/18 22:40 Blood Blood Culture - Preliminary NO GROWTH AFTER 24 HOURS Resulted 08/29/18 19:10 Blood Blood Culture - Preliminary NO GROWTH AFTER 24 HOURS Resulted 08/29/18 19:00 Blood Blood Culture - Preliminary NO GROWTH AFTER 24 HOURS Resulted 08/28/18 19:35 Blood Blood Culture - Preliminary NO GROWTH AFTER 48 HOURS Resulted 08/28/18 19:20 Blood Blood Culture - Preliminary NO GROWTH AFTER 48 HOURS Resulted 08/30/18 01:35 Indwelling Cath Urine Culture - Preliminary NO GROWTH Resulted Laboratory Tests 08/30/18 11:57: Arterial Blood pH 7.476H, Arterial Blood Partial Pressure CO2 35.9, Arterial Blood Partial Pressure O2 91.4, Arterial Blood HCO3 25.9, Arterial Blood Oxygen Saturation 96.6, Arterial Blood Base Excess 2.4H, Arun Test Positive 08/31/18 09:10: White Blood Count 8.7#, Red Blood Count 3.48L, Hemoglobin 10.0L, Hematocrit 29.8L, Mean Corpuscular Volume 86, Mean Corpuscular Hemoglobin 28.7, Mean Corpuscular Hemoglobin Concent 33.6, Red Cell Distribution Width 12.3, Platelet Count 311, Mean Platelet Volume 7.0, Neutrophils (%) (Auto) 68.4, Lymphocytes (% ) (Auto) 21.3, Monocytes (%) (Auto) 7.0, Eosinophils (%) (Auto) 2.6, Basophils ( %) (Auto) 0.7, Sodium Level 144, Potassium Level 4.0, Chloride Level 108H, Carbon Dioxide Level 29, Anion Gap 7, Blood Urea Nitrogen 24H, Creatinine 0.9, Estimat Glomerular Filtration Rate , Glucose Level 109H, Calcium Level 8.8, Magnesium Level 1.9, Thyroid Stimulating Hormone (TSH) 0.538 Current Medications Medications (Trade) Dose Ordered Sig/Santosh Route PRN Reason Start Time Stop Time Status Last Admin Dose Admin Acetaminophen (Tylenol) 650 mg Q4H PRN ORAL Mild Pain/Temp > 100.5 08/30/18 18:19 09/24/18 18:18 08/31/18 09:03 Acetaminophen (Tylenol) 650 mg Q4H PRN RECTAL Mild Pain/Temp > 100.5 08/30/18 18:15 09/28/18 18:14 Albuterol Sulfate (Proventil) 2.5 mg Q6HRT HHN 08/30/18 19:00 08/31/18 18:59 08/31/18 07:39 Aspirin (ASA) 81 mg DAILY ORAL 08/31/18 09:00 09/24/18 08:59 08/31/18 09:03 Atorvastatin Calcium (Lipitor) 40 mg BEDTIME ORAL 08/30/18 21:00 09/24/18 20:59 08/30/18 21:23 Carbidopa/Levodopa (Sinemet 25/100) 1 tab THREE TIMES A DAY ORAL 08/31/18 09:00 09/24/18 08:59 08/31/18 09:03 Dextrose (Dextrose 50%) 25 ml Q30M PRN IV Hypoglycemia 08/30/18 18:20 09/24/18 18:19 Dextrose (Dextrose 50%) 50 ml Q30M PRN IV Hypoglycemia 08/30/18 18:20 09/24/18 18:19 Docusate Sodium (Colace) 100 mg DAILY ORAL 08/31/18 09:00 09/24/18 08:59 08/31/18 09:01 Donepezil HCl (Aricept) 5 mg DAILY ORAL 08/31/18 09:00 09/24/18 08:59 08/31/18 09:03 Enoxaparin Sodium (Lovenox) 40 mg DAILY SUBQ 08/31/18 09:00 09/24/18 08:59 08/31/18 09:05 Famotidine (Pepcid) 20 mg TWICE A DAY ORAL 08/31/18 09:00 09/24/18 08:59 08/31/18 09:01 Insulin Aspart (NovoLOG) EVERY 6 HOURS SUBQ 08/31/18 00:00 09/24/18 05:59 08/31/18 05:39 Linezolid 300 ml @ 300 mls/hr Q12HR IVPB 08/30/18 21:00 09/05/18 22:59 08/31/18 09:11 Lorazepam (Ativan 2mg/ml 1ml) 0.5 mg Q4H PRN IV For Anxiety 08/30/18 18:20 09/05/18 18:19 08/31/18 05:27 Meropenem 1 gm/ Sodium Chloride 55 ml @ 110 mls/hr Q8HR IVPB 08/30/18 22:00 09/03/18 22:14 08/31/18 05:30 Metoprolol Tartrate (Lopressor) 50 mg Q12HR ORAL 08/30/18 21:00 09/28/18 20:59 08/31/18 09:01 Mupirocin (Bactroban Oint) 1 applic BID TOPIC 08/31/18 09:00 09/02/18 18:01 08/31/18 09:47 Ondansetron HCl (Zofran) 4 mg Q6H PRN IVP Nausea & Vomiting 08/30/18 18:21 09/24/18 18:20 Salmeterol Xinafoate/ Fluticasone (Advair 250/50 Diskus) 1 puffs EVERY 12 HOURS INH 08/30/18 21:00 09/24/18 08:59 Tamsulosin HCl (Flomax) 0.4 mg BEDTIME ORAL 08/30/18 21:00 09/24/18 20:59 08/30/18 21:23 Zinc Sulfate (Zinc Sulfate) 220 mg DAILY ORAL 08/31/18 09:00 09/24/18 08:59 08/31/18 09:03 Zolpidem Tartrate (Ambien) 5 mg HSPRN PRN ORAL Insomnia 08/30/18 21:00 09/06/18 20:59 Subjective ROS Limited/Unobtainable: No Allergies: Coded Allergies: No Known Allergies (Unverified , 08/24/18) Objective Last 24 Hour Vital Signs Date Time Temp Pulse Resp B/P (MAP) Pulse Ox O2 Delivery O2 Flow Rate FiO2 09/02/18 09:02 89 122/73 09/02/18 09:00 Nasal Cannula 3.0 09/02/18 08:12 Room Air 09/02/18 08:12 Room Air 21 09/02/18 08:12 Room Air 09/02/18 08:12 Room Air 09/02/18 08:12 96 Room Air 2.0 28 09/02/18 08:12 Room Air 09/02/18 08:00 98.0 89 20 122/73 (89) 98 09/02/18 04:00 97.7 75 20 122/68 (86) 97 09/02/18 01:19 Nasal Cannula 09/02/18 01:19 Nasal Cannula 09/02/18 00:00 98.1 66 20 122/72 (89) 99 09/01/18 21:47 79 128/75 09/01/18 21:10 Nasal Cannula 2.0 28 09/01/18 21:10 Room Air 2.0 28 09/01/18 21:09 Nasal Cannula 09/01/18 21:08 97 Nasal Cannula 2.0 28 09/01/18 21:08 Nasal Cannula 2.0 28 09/01/18 21:06 79 24 97 Nasal Cannula 3.0 32 09/01/18 21:00 Nasal Cannula 3.0 09/01/18 20:00 97.8 71 20 128/75 (92) 98 09/01/18 18:16 97.5 09/01/18 16:00 97.5 84 18 125/71 (89) 98 09/01/18 15:36 98.2 09/01/18 14:01 85 24 99 Nasal Cannula 3.0 32 09/01/18 13:51 82 24 98 Nasal Cannula 3.0 32 09/01/18 11:48 98.2 75 20 125/72 (89) 98 Intake and Output 09/01/18 09/02/18 19:00 07:00 Intake Total 300 ml 1325 ml Output Total 800 ml Balance -500 ml 1325 ml Intake Free Water 200 ml IV Total 300 ml 410 ml Tube Feeding 715 ml Output Urine Total 800 ml # Bowel Movements 1 3 Laboratory Tests 09/02/18 04:50: White Blood Count 4.7L, Red Blood Count 3.45L, Hemoglobin 9.8L, Hematocrit 29.6L , Mean Corpuscular Volume 86, Mean Corpuscular Hemoglobin 28.5, Mean Corpuscular Hemoglobin Concent 33.2, Red Cell Distribution Width 12.6, Platelet Count 297, Mean Platelet Volume 6.8, Neutrophils (%) (Auto) 50.1, Lymphocytes (% ) (Auto) 34.9, Monocytes (%) (Auto) 6.8, Eosinophils (%) (Auto) 7.3H, Basophils (%) (Auto) 0.8, Sodium Level 141, Potassium Level 3.8, Chloride Level 105, Carbon Dioxide Level 28, Anion Gap 8, Blood Urea Nitrogen 11, Creatinine 0.7, Estimat Glomerular Filtration Rate , Glucose Level 110H, Calcium Level 8.8, Phosphorus Level 3.0, Magnesium Level 2.0 Current Medications Medications (Trade) Dose Ordered Sig/Santosh Route PRN Reason Start Time Stop Time Status Last Admin Dose Admin Acetaminophen (Tylenol) 650 mg Q4H PRN ORAL Mild Pain/Temp > 100.5 08/30/18 18:19 09/24/18 18:18 09/01/18 17:46 Acetaminophen (Tylenol) 650 mg Q4H PRN RECTAL Mild Pain/Temp > 100.5 08/30/18 18:15 09/28/18 18:14 Acetaminophen/ Hydrocodone Bitart ([place] 5/325) 1 tab Q6H PRN GT For Pain 09/01/18 15:00 09/08/18 14:59 09/01/18 15:06 Albuterol Sulfate (Proventil) 2.5 mg Q6HRT HHN 09/01/18 01:00 09/06/18 00:59 09/01/18 21:06 Aspirin (ASA) 81 mg DAILY ORAL 08/31/18 09:00 09/24/18 08:59 09/02/18 09:02 Atorvastatin Calcium (Lipitor) 40 mg BEDTIME ORAL 08/30/18 21:00 09/24/18 20:59 09/01/18 21:46 Carbidopa/Levodopa (Sinemet 25/100) 1 tab THREE TIMES A DAY ORAL 08/31/18 09:00 09/24/18 08:59 09/02/18 09:02 Clonidine HCl (Catapres Tab) 0.1 mg Q6H PRN ORAL SBP > 150mmHg 08/31/18 18:00 09/30/18 17:59 08/31/18 18:13 Dextrose (Dextrose 50%) 25 ml Q30M PRN IV Hypoglycemia 08/30/18 18:20 09/24/18 18:19 Dextrose (Dextrose 50%) 50 ml Q30M PRN IV Hypoglycemia 08/30/18 18:20 09/24/18 18:19 Docusate Sodium (Colace) 100 mg DAILY ORAL 08/31/18 09:00 09/24/18 08:59 09/02/18 09:02 Donepezil HCl (Aricept) 5 mg DAILY ORAL 08/31/18 09:00 09/24/18 08:59 09/02/18 09:02 Enoxaparin Sodium (Lovenox) 40 mg DAILY SUBQ 08/31/18 09:00 09/24/18 08:59 09/02/18 09:03 Famotidine (Pepcid) 20 mg TWICE A DAY ORAL 08/31/18 09:00 09/24/18 08:59 09/02/18 09:02 Insulin Aspart (NovoLOG) EVERY 6 HOURS SUBQ 08/31/18 00:00 09/24/18 05:59 09/01/18 23:16 Linezolid 300 ml @ 300 mls/hr Q12HR IVPB 08/30/18 21:00 09/05/18 22:59 09/02/18 09:02 Lorazepam (Ativan 2mg/ml 1ml) 0.5 mg Q4H PRN IV For Anxiety 08/30/18 18:20 09/05/18 18:19 09/01/18 18:03 Meropenem 1 gm/ Sodium Chloride 55 ml @ 110 mls/hr Q8HR IVPB 08/30/18 22:00 09/07/18 21:59 09/02/18 05:57 Metoprolol Tartrate (Lopressor) 50 mg Q12HR ORAL 08/30/18 21:00 09/28/18 20:59 09/02/18 09:02 Mupirocin (Bactroban Oint) 1 applic BID TOPIC 08/31/18 09:00 09/02/18 18:01 09/02/18 09:02 Ondansetron HCl (Zofran) 4 mg Q6H PRN IVP Nausea & Vomiting 08/30/18 18:21 09/24/18 18:20 Salmeterol Xinafoate/ Fluticasone (Advair 250/50 Diskus) 1 puffs EVERY 12 HOURS INH 08/30/18 21:00 09/24/18 08:59 Tamsulosin HCl (Flomax) 0.4 mg BEDTIME ORAL 08/30/18 21:00 09/24/18 20:59 09/01/18 21:47 Zinc Sulfate (Zinc Sulfate) 220 mg DAILY ORAL 08/31/18 09:00 09/24/18 08:59 09/02/18 09:02 Zolpidem Tartrate (Ambien) 5 mg HSPRN PRN ORAL Insomnia 08/30/18 21:00 09/06/18 20:59 Migel Terrazas MD Sep 02, 2018 10:55
--- NOTE | 2018-09-02 11:18 | Cardiology Report ---
APPROVED REPORT EKG Measurement Heart [id number] Sinus tachycardia Nonspecific ST abnormality Abnormal ECG
[2018-09-02 12:00] VITALS: BP 120/69
[2018-09-02] MEDS: LORazepam Inj 2mg/ml 1ml IV PRN (12:30)
[2018-09-02] MEDS: Norco 5mg/325mg tab GT PRN (12:30)
--- NOTE | 2018-09-02 13:37 | Infectious Diseases Prog Note ---
Assessment/Plan Problems: (1) Sepsis due to coagulase-negative staphylococcal infection Assessment & Plan: source most likely his pressure wounds, now improving on zyvox since he was febrile and hypoxemic while on vancomycin , await echo to rule out vegetations, repeated blood culture to confirm clearance is negative so far . EOT 09/11/18 (2) Aspiration pneumonia Assessment & Plan: due to MSSA , on zyvox and meropenem with improvement in his fever and leukocytosis . aspiration precaution, keep HOB > 30 degree all the time (3) UTI (urinary tract infection) Assessment & Plan: due to ESBL producing Klebsiella pneumonia and proteus mirabilis , on meropenem for two weeks .EOT 09/11/18 (4) COPD (chronic obstructive pulmonary disease) Assessment & Plan: due to the above , continue antibiotics, inhalers and nebulizer therapy (5) Diabetes 1.5, managed as type 2 Assessment & Plan: recommend tight glycemic control (6) Heel ulcer Assessment & Plan: on the left mainly, bone scan ruled out osteomyelitis , continue local wound care and dressing change as per hospital protocol. 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 on nasal canula sating well, no fever or chills, has cough , but no SOB, no diarrhea Objective Vital Signs Last 24 Hour Vital Signs Date Time Temp Pulse Resp B/P (MAP) Pulse Ox O2 Delivery O2 Flow Rate FiO2 09/02/18 13:17 Room Air 09/02/18 13:17 Room Air 09/02/18 13:00 98.3 09/02/18 12:00 98.3 91 19 120/69 (86) 98 09/02/18 09:02 89 122/73 09/02/18 09:00 Nasal Cannula 3.0 09/02/18 08:12 Room Air 09/02/18 08:12 Room Air 21 09/02/18 08:12 Room Air 09/02/18 08:12 Room Air 09/02/18 08:12 96 Room Air 2.0 28 09/02/18 08:12 Room Air 09/02/18 08:00 98.0 89 20 122/73 (89) 98 09/02/18 04:00 97.7 75 20 122/68 (86) 97 09/02/18 01:19 Nasal Cannula 09/02/18 01:19 Nasal Cannula 09/02/18 00:00 98.1 66 20 122/72 (89) 99 09/01/18 21:47 79 128/75 09/01/18 21:10 Nasal Cannula 2.0 28 09/01/18 21:10 Room Air 2.0 28 09/01/18 21:09 Nasal Cannula 09/01/18 21:08 97 Nasal Cannula 2.0 28 09/01/18 21:08 Nasal Cannula 2.0 28 09/01/18 21:06 79 24 97 Nasal Cannula 3.0 32 09/01/18 21:00 Nasal Cannula 3.0 09/01/18 20:00 97.8 71 20 128/75 (92) 98 09/01/18 18:16 97.5 09/01/18 16:00 97.5 84 18 125/71 (89) 98 09/01/18 14:01 85 24 99 Nasal Cannula 3.0 32 09/01/18 13:51 82 24 98 Nasal Cannula 3.0 32 Height (Feet): 6 Height (Inches): 0.00 Weight (Pounds): 152 Laboratory Tests Test 09/02/18 04:50 White Blood Count 4.7 K/UL (4.8-10.8) L Red Blood Count 3.45 M/UL (4.70-6.10) L Hemoglobin 9.8 G/DL (14.2-18.0) L Hematocrit 29.6 % (42.0-52.0) L Mean Corpuscular Volume 86 FL (80-99) Mean Corpuscular Hemoglobin 28.5 PG (27.0-31.0) Mean Corpuscular Hemoglobin Concent 33.2 G/DL (32.0-36.0) Red Cell Distribution Width 12.6 % (11.6-14.8) Platelet Count 297 K/UL (150-450) Mean Platelet Volume 6.8 FL (6.5-10.1) Neutrophils (%) (Auto) 50.1 % (45.0-75.0) Lymphocytes (%) (Auto) 34.9 % (20.0-45.0) Monocytes (%) (Auto) 6.8 % (1.0-10.0) Eosinophils (%) (Auto) 7.3 % (0.0-3.0) H Basophils (%) (Auto) 0.8 % (0.0-2.0) Sodium Level 141 MMOL/L (136-145) Potassium Level 3.8 MMOL/L (3.5-5.1) Chloride Level 105 MMOL/L (98-107) Carbon Dioxide Level 28 MMOL/L (21-32) Anion Gap 8 mmol/L (5-15) Blood Urea Nitrogen 11 mg/dL (7-18) Creatinine 0.7 MG/DL (0.55-1.30) Estimat Glomerular Filtration Rate mL/min (>60) Glucose Level 110 MG/DL (74-106) H Calcium Level 8.8 MG/DL (8.5-10.1) Phosphorus Level 3.0 MG/DL (2.5-4.9) Magnesium Level 2.0 MG/DL (1.8-2.4) Current Medications Medications (Trade) Dose Ordered Sig/Santosh Route PRN Reason Start Time Stop Time Status Last Admin Dose Admin Acetaminophen (Tylenol) 650 mg Q4H PRN ORAL Mild Pain/Temp > 100.5 08/30/18 18:19 09/24/18 18:18 09/01/18 17:46 Acetaminophen (Tylenol) 650 mg Q4H PRN RECTAL Mild Pain/Temp > 100.5 08/30/18 18:15 09/28/18 18:14 Acetaminophen/ Hydrocodone Bitart ([place] 5/325) 1 tab Q6H PRN GT For Pain 09/01/18 15:00 09/08/18 14:59 09/02/18 12:30 Albuterol Sulfate (Proventil) 2.5 mg Q6HRT HHN 09/01/18 01:00 09/06/18 00:59 09/01/18 21:06 Aspirin (ASA) 81 mg DAILY ORAL 08/31/18 09:00 09/24/18 08:59 09/02/18 09:02 Atorvastatin Calcium (Lipitor) 40 mg BEDTIME ORAL 08/30/18 21:00 09/24/18 20:59 09/01/18 21:46 Carbidopa/Levodopa (Sinemet /) 1 tab THREE TIMES A DAY ORAL 08/31/18 09:00 09/24/18 08:59 09/02/18 12:29 Clonidine HCl (Catapres Tab) 0.1 mg Q6H PRN ORAL SBP > 150mmHg 08/31/18 18:00 09/30/18 17:59 08/31/18 18:13 Dextrose (Dextrose 50%) 25 ml Q30M PRN IV Hypoglycemia 08/30/18 18:20 09/24/18 18:19 Dextrose (Dextrose 50%) 50 ml Q30M PRN IV Hypoglycemia 08/30/18 18:20 09/24/18 18:19 Docusate Sodium (Colace) 100 mg DAILY ORAL 08/31/18 09:00 09/24/18 08:59 09/02/18 09:02 Donepezil HCl (Aricept) 5 mg DAILY ORAL 08/31/18 09:00 09/24/18 08:59 09/02/18 09:02 Enoxaparin Sodium (Lovenox) 40 mg DAILY SUBQ 08/31/18 09:00 09/24/18 08:59 09/02/18 09:03 Famotidine (Pepcid) 20 mg TWICE A DAY ORAL 08/31/18 09:00 09/24/18 08:59 09/02/18 09:02 Insulin Aspart (NovoLOG) EVERY 6 HOURS SUBQ 08/31/18 00:00 09/24/18 05:59 09/02/18 12:31 Linezolid 300 ml @ 300 mls/hr Q12HR IVPB 08/30/18 21:00 09/05/18 22:59 09/02/18 09:02 Lorazepam (Ativan 2mg/ml 1ml) 0.5 mg Q4H PRN IV For Anxiety 08/30/18 18:20 09/05/18 18:19 09/02/18 12:30 Meropenem 1 gm/ Sodium Chloride 55 ml @ 110 mls/hr Q8HR IVPB 08/30/18 22:00 09/07/18 21:59 09/02/18 05:57 Metoprolol Tartrate (Lopressor) 50 mg Q12HR ORAL 08/30/18 21:00 09/28/18 20:59 09/02/18 09:02 Mupirocin (Bactroban Oint) 1 applic BID TOPIC 08/31/18 09:00 09/02/18 18:01 09/02/18 09:02 Ondansetron HCl (Zofran) 4 mg Q6H PRN IVP Nausea & Vomiting 08/30/18 18:21 09/24/18 18:20 Salmeterol Xinafoate/ Fluticasone (Advair 250/50 Diskus) 1 puffs EVERY 12 HOURS INH 08/30/18 21:00 09/24/18 08:59 Tamsulosin HCl (Flomax) 0.4 mg BEDTIME ORAL 08/30/18 21:00 09/24/18 20:59 09/01/18 21:47 Zinc Sulfate (Zinc Sulfate) 220 mg DAILY ORAL 08/31/18 09:00 09/24/18 08:59 09/02/18 09:02 Zolpidem Tartrate (Ambien) 5 mg HSPRN PRN ORAL Insomnia 08/30/18 21:00 09/06/18 20:59 Vilma Cedeño M.D. Sep 02, 2018 13:37
[2018-09-02 16:00] VITALS: BP 127/77
[2018-09-02] MEDS ORDERED: Tubing IV Secondary IV ONE (17:19)
[2018-09-02] MEDS ORDERED: Sterile Water Irrig 1000ml IRRIG ONE (17:19)
[2018-09-02] MEDS ORDERED: NS 275ml ONE (17:25)
--- NOTE | 2018-09-02 17:41 | Infectious Diseases Prog Note ---
Assessment/Plan Problems: (1) Sepsis due to coagulase-negative staphylococcal infection Assessment & Plan: source most likely his pressure wounds, now improving on zyvox . echo ruled out vegetations, repeated blood culture to confirm clearance is negative so far . EOT 09/11/18 (2) Aspiration pneumonia Assessment & Plan: due to MSSA , on zyvox and meropenem with improvement in his fever and leukocytosis . aspiration precaution, keep HOB > 30 degree all the time (3) UTI (urinary tract infection) Assessment & Plan: due to ESBL producing Klebsiella pneumonia and proteus mirabilis , on meropenem for two weeks .EOT 09/11/18 (4) COPD (chronic obstructive pulmonary disease) Assessment & Plan: due to the above , continue antibiotics, inhalers and nebulizer therapy (5) Diabetes 1.5, managed as type 2 Assessment & Plan: recommend tight glycemic control (6) Heel ulcer Assessment & Plan: on the left mainly, bone scan ruled out osteomyelitis , continue local wound care and dressing change as per hospital protocol. 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 Subjective Constitutional: Reports: no symptoms HEENT: Reports: no symptoms Respiratory: Reports: no symptoms Breasts: Reports: no symptoms Cardiovascular: Reports: no symptoms Gastrointestinal/Abdominal: Reports: no symptoms Genitourinary: Reports: no symptoms Neurologic: Reports: no symptoms Psychiatric: Reports: no symptoms Skin: Reports: no symptoms Endocrine: Reports: no symptoms Hematologic: Reports: no symptoms Musculoskeletal: Reports: no symptoms Allergies: Coded Allergies: No Known Allergies (Unverified , 08/24/18) Subjective He was awake and comfortable, and responsive to verbal commands, was anxious while getting neb treatment . on nasal canula sating well, no fever or chills, has cough , but no SOB, no diarrhea Objective Vital Signs Last 24 Hour Vital Signs Date Time Temp Pulse Resp B/P (MAP) Pulse Ox O2 Delivery O2 Flow Rate FiO2 09/02/18 16:00 98.6 84 19 127/77 (94) 98 09/02/18 13:17 Room Air 09/02/18 13:17 Room Air 09/02/18 13:00 98.3 09/02/18 12:00 98.3 91 19 120/69 (86) 98 09/02/18 09:02 89 122/73 09/02/18 09:00 Nasal Cannula 3.0 09/02/18 08:12 Room Air 09/02/18 08:12 Room Air 21 09/02/18 08:12 Room Air 09/02/18 08:12 Room Air 09/02/18 08:12 96 Room Air 2.0 28 09/02/18 08:12 Room Air 09/02/18 08:00 98.0 89 20 122/73 (89) 98 09/02/18 04:00 97.7 75 20 122/68 (86) 97 09/02/18 01:19 Nasal Cannula 09/02/18 01:19 Nasal Cannula 09/02/18 00:00 98.1 66 20 122/72 (89) 99 09/01/18 21:47 79 128/75 09/01/18 21:10 Nasal Cannula 2.0 28 09/01/18 21:10 Room Air 2.0 28 09/01/18 21:09 Nasal Cannula 09/01/18 21:08 97 Nasal Cannula 2.0 28 09/01/18 21:08 Nasal Cannula 2.0 28 09/01/18 21:06 79 24 97 Nasal Cannula 3.0 32 09/01/18 21:00 Nasal Cannula 3.0 09/01/18 20:00 97.8 71 20 128/75 (92) 98 09/01/18 18:16 97.5 Height (Feet): 6 Height (Inches): 0.00 Weight (Pounds): 152 General Appearance: no acute distress, cachetic HEENT: normocephalic, atraumatic, anicteric, mucous membranes moist, PERRL Respiratory/Chest: chest wall non-tender, no respiratory distress, no accessory muscle use, decreased breath sounds Cardiovascular: normal peripheral pulses, normal rate, regular rhythm, no gallop/murmur, no JVD Abdomen: normal bowel sounds, soft, non tender, no organomegaly, non distended , no mass, no scars Extremities: no cyanosis, no clubbing Skin: no rash, no lesions, ulcers Neurologic/Psychiatric: 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5-10.1) Neutrophils (%) (Auto) 50.1 % (45.0-75.0) Lymphocytes (%) (Auto) 34.9 % (20.0-45.0) Monocytes (%) (Auto) 6.8 % (1.0-10.0) Eosinophils (%) (Auto) 7.3 % (0.0-3.0) H Basophils (%) (Auto) 0.8 % (0.0-2.0) Sodium Level 141 MMOL/L (136-145) Potassium Level 3.8 MMOL/L (3.5-5.1) Chloride Level 105 MMOL/L (98-107) Carbon Dioxide Level 28 MMOL/L (21-32) Anion Gap 8 mmol/L (5-15) Blood Urea Nitrogen 11 mg/dL (7-18) Creatinine 0.7 MG/DL (0.55-1.30) Estimat Glomerular Filtration Rate mL/min (>60) Glucose Level 110 MG/DL (74-106) H Calcium Level 8.8 MG/DL (8.5-10.1) Phosphorus Level 3.0 MG/DL (2.5-4.9) Magnesium Level 2.0 MG/DL (1.8-2.4) Current Medications Medications (Trade) Dose Ordered Sig/Santosh Route PRN Reason Start Time Stop Time Status Last Admin Dose Admin Acetaminophen (Tylenol) 650 mg Q4H PRN ORAL Mild Pain/Temp > 100.5 08/30/18 18:19 09/24/18 18:18 09/01/18 17:46 Acetaminophen (Tylenol) 650 mg Q4H PRN RECTAL Mild Pain/Temp > 100.5 08/30/18 18:15 09/28/18 18:14 Acetaminophen/ Hydrocodone Bitart ([place] 5/325) 1 tab Q6H PRN GT For Pain 09/01/18 15:00 09/08/18 14:59 09/02/18 12:30 Albuterol Sulfate (Proventil) 2.5 mg Q6HRT HHN 09/01/18 01:00 09/06/18 00:59 09/01/18 21:06 Aspirin (ASA) 81 mg DAILY ORAL 08/31/18 09:00 09/24/18 08:59 09/02/18 09:02 Atorvastatin Calcium (Lipitor) 40 mg BEDTIME ORAL 08/30/18 21:00 09/24/18 20:59 09/01/18 21:46 Carbidopa/Levodopa (Sinemet 25/100) 1 tab THREE TIMES A DAY ORAL 08/31/18 09:00 09/24/18 08:59 09/02/18 12:29 Clonidine HCl (Catapres Tab) 0.1 mg Q6H PRN ORAL SBP > 150mmHg 08/31/18 18:00 09/30/18 17:59 08/31/18 18:13 Dextrose (Dextrose 50%) 25 ml Q30M PRN IV Hypoglycemia 08/30/18 18:20 09/24/18 18:19 Dextrose (Dextrose 50%) 50 ml Q30M PRN IV Hypoglycemia 08/30/18 18:20 09/24/18 18:19 Docusate Sodium (Colace) 100 mg DAILY ORAL 08/31/18 09:00 09/24/18 08:59 09/02/18 09:02 Donepezil HCl (Aricept) 5 mg DAILY ORAL 08/31/18 09:00 09/24/18 08:59 09/02/18 09:02 Enoxaparin Sodium (Lovenox) 40 mg DAILY SUBQ 08/31/18 09:00 09/24/18 08:59 09/02/18 09:03 Famotidine (Pepcid) 20 mg TWICE A DAY ORAL 08/31/18 09:00 09/24/18 08:59 09/02/18 09:02 Insulin Aspart (NovoLOG) EVERY 6 HOURS SUBQ 08/31/18 00:00 09/24/18 05:59 09/02/18 12:31 Linezolid 300 ml @ 300 mls/hr Q12HR IVPB 08/30/18 21:00 09/05/18 22:59 09/02/18 09:02 Lorazepam (Ativan 2mg/ml 1ml) 0.5 mg Q4H PRN IV For Anxiety 08/30/18 18:20 09/05/18 18:19 09/02/18 12:30 Meropenem 1 gm/ Sodium Chloride 55 ml @ 110 mls/hr Q8HR IVPB 08/30/18 22:00 09/07/18 21:59 09/02/18 14:18 Metoprolol Tartrate (Lopressor) 50 mg Q12HR ORAL 08/30/18 21:00 09/28/18 20:59 09/02/18 09:02 Mupirocin (Bactroban Oint) 1 applic BID TOPIC 08/31/18 09:00 09/02/18 18:01 09/02/18 09:02 Ondansetron HCl (Zofran) 4 mg Q6H PRN IVP Nausea & Vomiting 08/30/18 18:21 09/24/18 18:20 Salmeterol Xinafoate/ Fluticasone (Advair 250/50 Diskus) 1 puffs EVERY 12 HOURS INH 08/30/18 21:00 09/24/18 08:59 Tamsulosin HCl (Flomax) 0.4 mg BEDTIME ORAL 08/30/18 21:00 09/24/18 20:59 09/01/18 21:47 Zinc Sulfate (Zinc Sulfate) 220 mg DAILY ORAL 08/31/18 09:00 09/24/18 08:59 09/02/18 09:02 Zolpidem Tartrate (Ambien) 5 mg HSPRN PRN ORAL Insomnia 08/30/18 21:00 09/06/18 20:59 Vilma Cedeño M.D. Sep 02, 2018 17:41
[2018-09-02 20:00] VITALS: BP 118/70
[2018-09-02] MEDS: Atorvastatin 20mg tab ORAL SCH ×2 (20:52→21:00)
[2018-09-02] MEDS: Tamsulosin 0.4mg cap ORAL SCH ×2 (20:52→21:00)
[2018-09-03] VITALS: BP 137/84
[2018-09-03] MEDS: Albuterol ud Inhalation HHN SCH ×4 (01:00→19:00)
[2018-09-03 04:00] VITALS: BP 133/74
[2018-09-03] MEDS: NovoLOG Insulin Flexpen SUBQ SCH ×4 (06:00→18:00)
[2018-09-03] MEDS: Meropenem 1 GM in NS 55 ML IVPB SCH ×3 (06:22→22:00)
[2018-09-03 08:00] VITALS: BP 150/88
--- NOTE | 2018-09-03 08:13 | Pulmonology Progress Note ---
Assessment/Plan Assessment/Plan Impression Respiratory distress Mild hypoxemia Tachycardia, better Leukocytosis Possible sepsis Anemia Acute respiratory failure with noted respiratory acidosis Lactic acidemia Mild protein calorie malnutrition Acute encephalopathy Plan IV antibiotics ID noted; cultures noted BiPAP PRN Monitor oxygen needs DVT prophylaxis Nebulized therapy Prognosis is guarded impression, plan, and exam edited and reviewed in detail care discussed with RN Subjective Allergies: Coded Allergies: No Known Allergies (Unverified , 08/24/18) Subjective Hemodynamics noted off BIPAP and stable off tele Objective Last 24 Hour Vital Signs Date Time Temp Pulse Resp B/P (MAP) Pulse Ox O2 Delivery O2 Flow Rate FiO2 09/03/18 07:25 Room Air 21 09/03/18 07:25 Room Air 21 09/03/18 07:25 Room Air 21 09/03/18 07:25 96 Room Air 21 09/03/18 04:00 98.6 72 18 133/74 (93) 97 09/03/18 01:59 Nasal Cannula 3.0 32 09/03/18 01:59 Nasal Cannula 3.0 32 09/03/18 00:00 98.1 82 19 137/84 (101) 99 09/02/18 21:00 Nasal Cannula 3.0 09/02/18 21:00 73 118/70 09/02/18 20:19 Nasal Cannula 3.0 32 09/02/18 20:19 Nasal Cannula 3.0 32 09/02/18 20:19 Nasal Cannula 2.0 28 09/02/18 20:19 Nasal Cannula 3.0 32 09/02/18 20:18 Nasal Cannula 2.0 28 09/02/18 20:17 98 Room Air 2.0 28 09/02/18 20:00 97.7 73 17 118/70 (86) 98 09/02/18 16:00 98.6 84 19 127/77 (94) 98 09/02/18 13:17 Room Air 09/02/18 13:17 Room Air 09/02/18 13:00 98.3 09/02/18 12:00 98.3 91 19 120/69 (86) 98 09/02/18 09:02 89 122/73 09/02/18 09:00 Nasal Cannula 3.0 Intake and Output 09/02/18 09/03/18 19:00 07:00 Intake Total 655 ml Output Total 2000 ml Balance -1345 ml Intake Free Water 200 ml Tube Feeding 455 ml Output Urine Total 2000 ml Objective WDWN on oxygen reduced LOC clear breath sounds bilaterally without rhonchi or wheeze [id number] without MRG NABS nontender no HSM no CC same reviewed and examined Current Medications Medications (Trade) Dose Ordered Sig/Santosh Route PRN Reason Start Time Stop Time Status Last Admin Dose Admin Acetaminophen (Tylenol) 650 mg Q4H PRN ORAL Mild Pain/Temp > 100.5 08/30/18 18:19 09/24/18 18:18 09/01/18 17:46 Acetaminophen (Tylenol) 650 mg Q4H PRN RECTAL Mild Pain/Temp > 100.5 08/30/18 18:15 09/28/18 18:14 Acetaminophen/ Hydrocodone Bitart ([place] 5/325) 1 tab Q6H PRN GT For Pain 09/01/18 15:00 09/08/18 14:59 09/02/18 12:30 Albuterol Sulfate (Proventil) 2.5 mg Q6HRT HHN 09/01/18 01:00 09/06/18 00:59 09/01/18 21:06 Aspirin (ASA) 81 mg DAILY ORAL 08/31/18 09:00 09/24/18 08:59 09/02/18 09:02 Atorvastatin Calcium (Lipitor) 40 mg BEDTIME ORAL 08/30/18 21:00 09/24/18 20:59 09/01/18 21:46 Carbidopa/Levodopa (Sinemet 25/100) 1 tab THREE TIMES A DAY ORAL 08/31/18 09:00 09/24/18 08:59 09/02/18 17:54 Clonidine HCl (Catapres Tab) 0.1 mg Q6H PRN ORAL SBP > 150mmHg 08/31/18 18:00 09/30/18 17:59 08/31/18 18:13 Dextrose (Dextrose 50%) 25 ml Q30M PRN IV Hypoglycemia 08/30/18 18:20 09/24/18 18:19 Dextrose (Dextrose 50%) 50 ml Q30M PRN IV Hypoglycemia 08/30/18 18:20 09/24/18 18:19 Docusate Sodium (Colace) 100 mg DAILY ORAL 08/31/18 09:00 09/24/18 08:59 09/02/18 09:02 Donepezil HCl (Aricept) 5 mg DAILY ORAL 08/31/18 09:00 09/24/18 08:59 09/02/18 09:02 Enoxaparin Sodium (Lovenox) 40 mg DAILY SUBQ 08/31/18 09:00 09/24/18 08:59 09/02/18 09:03 Famotidine (Pepcid) 20 mg TWICE A DAY ORAL 08/31/18 09:00 09/24/18 08:59 09/02/18 17:54 Insulin Aspart (NovoLOG) EVERY 6 HOURS SUBQ 08/31/18 00:00 09/24/18 05:59 09/02/18 12:31 Linezolid 300 ml @ 300 mls/hr Q12HR IVPB 08/30/18 21:00 09/05/18 22:59 09/02/18 20:54 Lorazepam (Ativan 2mg/ml 1ml) 0.5 mg Q4H PRN IV For Anxiety 08/30/18 18:20 09/05/18 18:19 09/02/18 12:30 Meropenem 1 gm/ Sodium Chloride 55 ml @ 110 mls/hr Q8HR IVPB 08/30/18 22:00 09/07/18 21:59 09/03/18 06:22 Metoprolol Tartrate (Lopressor) 50 mg Q12HR ORAL 08/30/18 21:00 09/28/18 20:59 09/02/18 09:02 Ondansetron HCl (Zofran) 4 mg Q6H PRN IVP Nausea & Vomiting 08/30/18 18:21 09/24/18 18:20 Salmeterol Xinafoate/ Fluticasone (Advair 250/50 Diskus) 1 puffs EVERY 12 HOURS INH 08/30/18 21:00 09/24/18 08:59 Tamsulosin HCl (Flomax) 0.4 mg BEDTIME ORAL 08/30/18 21:00 09/24/18 20:59 09/01/18 21:47 Zinc Sulfate (Zinc Sulfate) 220 mg DAILY ORAL 08/31/18 09:00 09/24/18 08:59 09/02/18 09:02 Zolpidem Tartrate (Ambien) 5 mg HSPRN PRN ORAL Insomnia 08/30/18 21:00 09/06/18 20:59 Hernandez Corley MD Sep 03, 2018 08:13
[2018-09-03] MEDS: Advair 250/50 Inhaler - 14 dose INH SCH ×2 (08:29→21:00)
[2018-09-03] MEDS: Donepezil 5mg Tab ORAL SCH (09:01)
[2018-09-03] MEDS: Aspirin Baby 81mg ORAL SCH (09:01)
[2018-09-03] MEDS: Metoprolol Tartrate 50mg tab ORAL SCH ×2 (09:02→21:00)
[2018-09-03] MEDS: Levodopa/Carbidopa 25/100 tab ORAL SCH ×3 (09:02→18:00)
[2018-09-03] MEDS: Docusate 100mg/10ml Liq ORAL SCH (09:02)
[2018-09-03] MEDS: Zinc Sulfate 220mg cap ORAL SCH (09:02)
[2018-09-03] MEDS: Enoxaparin 40mg Inj SUBQ SCH (09:05)
--- NOTE | 2018-09-03 10:10 | Consultation ---
History of Present Illness General Chief Complaint: Upper Respiratory Illness Reason for Consultation: Sacral Decubitus Ulcer Present Illness HPI 73-year-old c male with past medical history of CVA, seizure disorder, and dementia who presents to emergency room at [facility] for evaluation of cough and fever for two days. the pt has been agitated and screaming. the pt has been confused and not able to follow directions. the pt has impairment of memory and is unable to provide any meaningful hx Allergies: Coded Allergies: No Known Allergies (Unverified , 08/24/18) Medication History Scheduled Albuterol Sulfate* (Albuterol Sulfate Hhn*), 2.5 MG HHN Q6HRT Aspirin* (Aspirin*), 81 MG ORAL DAILY, (Reported) Atorvastatin Calcium* (Atorvastatin Calcium*), 40 MG ORAL BEDTIME, (Reported) Carbidopa/Levodopa 25-100 Mg* (Sinemet 25-100 Mg Tablet*), 1 TAB ORAL THREE TIMES A DAY, (Reported) Docusate Sodium (Docusate Sodium), 100 MG GT DAILY, (Reported) Donepezil Hcl* (Donepezil Hcl*), 5 MG GT DAILY, (Reported) Enoxaparin Sodium (Enoxaparin Sodium), 40 MG SUBQ DAILY, (Reported) Famotidine (Famotidine), 20 MG GT TWICE A DAY, (Reported) Fluticasone/Salmeterol (Advair 250-50 Diskus), 1 PUFF INH EVERY 12 HOURS, ( Reported) Levetiracetam (Keppra Xr), 500 MG ORAL DAILY, (Reported) Linezolid (Zyvox), 600 MG IVPB EVERY 12 HOURS Linezolid* (Zyvox*), 600 MG ORAL EVERY 12 HOURS, (Reported) Meropenem (Meropenem), 1 GM IV EVERY 8 HOURS Meropenem-0.9% Sodium Chloride (Meropenem-0.9% NaCl 1 Gram/50), 1 GM IV Q8HR, ( Reported) Metoprolol Tartrate* (Metoprolol Tartrate*), 50 MG ORAL Q12HR Tamsulosin Hcl (Tamsulosin Hcl*), 0.4 MG GT BEDTIME, (Reported) Zinc Sulfate (Zinc Sulfate*), 220 MG GT DAILY, (Reported) Scheduled PRN Acetaminophen* (Acetaminophen 325MG Tablet*), 650 MG ORAL Q4H PRN for Mild Pain/ Temp > 100.5, (Reported) Clonidine HCl (Clonidine HCl), 0.1 MG ORAL Q6H PRN Ipratropium [place] 0.5MG/2.5ML (Ipratropium [place] 0.5MG/2.5ML), 0.5 MG HHN Q6H PRN for Shortness of Breath, (Reported) Zolpidem Tartrate* (Ambien*), 5 MG ORAL HSPRN PRN Miscellaneous Medications Baclofen (Baclofen), 5 MG PO, (Reported) [tylenol supp 650 mg], 650, (Reported) Discontinued Medications Metoprolol Tartrate* (Metoprolol Tartrate*), 25 MG ORAL EVERY 12 HOURS, ( Reported) Discontinued Reason: Medication dose changed [insulin aspart scott], (Reported) Discontinued Reason: Pt stopped taking med Patient History Limited by: medical condition History Provided By: Patient, Medical Record, PMD Healthcare decision maker Resuscitation status Do Not Resuscitate Advanced Directive on File Past Medical/Surgical History Past Medical/Surgical History: (1) COPD (chronic obstructive pulmonary disease) (2) UTI (urinary tract infection) (3) Diabetes 1.5, managed as type 2 (4) Hypothyroid (5) Dysphagia as late effect of cerebrovascular accident (CVA) (6) Pneumonia (7) Aspiration pneumonia (8) Sepsis due to coagulase-negative staphylococcal infection (9) Heel ulcer (10) Sacral decubitus ulcer Review of Systems Psychiatric: Reports: prior hx, anxiety, depressed feelings, emotional problems , hallucinations Physical Exam General Appearance: alert, confused, severe distress, agitated, combative Last 24 Hour Vital Signs Date Time Temp Pulse Resp B/P (MAP) Pulse Ox O2 Delivery O2 Flow Rate FiO2 09/03/18 09:02 66 150/88 09/03/18 08:30 Nasal Cannula 2.0 28 09/03/18 08:30 Nasal Cannula 3.0 32 09/03/18 08:00 98.2 66 20 150/88 (108) 99 09/03/18 07:25 Room Air 21 09/03/18 07:25 Room Air 21 09/03/18 07:25 Room Air 21 09/03/18 07:25 96 Room Air 09/03/18 04:00 98.6 72 18 133/74 (93) 97 09/03/18 01:59 Nasal Cannula 3.0 32 09/03/18 01:59 Nasal Cannula 3.0 32 09/03/18 00:00 98.1 82 19 137/84 (101) 99 09/02/18 21:00 Nasal Cannula 3.0 09/02/18 21:00 73 118/70 09/02/18 20:19 Nasal Cannula 3.0 32 09/02/18 20:19 Nasal Cannula 3.0 32 09/02/18 20:19 Nasal Cannula 2.0 28 09/02/18 20:19 Nasal Cannula 3.0 32 09/02/18 20:18 Nasal Cannula 2.0 28 09/02/18 20:17 98 Room Air 2.0 28 09/02/18 20:00 97.7 73 17 118/70 (86) 98 09/02/18 16:00 98.6 84 19 127/77 (94) 98 09/02/18 13:17 Room Air 09/02/18 13:17 Room Air 09/02/18 13:00 98.3 09/02/18 12:00 98.3 91 19 120/69 (86) 98 Intake and Output 09/02/18 09/03/18 19:00 07:00 Intake Total 655 ml Output Total 2000 ml Balance -1345 ml Intake Free Water 200 ml Tube Feeding 455 ml Output Urine Total 2000 ml Height (Feet): 6 Height (Inches): 0.00 Weight (Pounds): 152 Medications Current Medications Medications (Trade) Dose Ordered Sig/Santosh Route PRN Reason Start Time Stop Time Status Last Admin Dose Admin Acetaminophen (Tylenol) 650 mg Q4H PRN ORAL Mild Pain/Temp > 100.5 08/30/18 18:19 09/24/18 18:18 09/01/18 17:46 Acetaminophen (Tylenol) 650 mg Q4H PRN RECTAL Mild Pain/Temp > 100.5 08/30/18 18:15 09/28/18 18:14 Acetaminophen/ Hydrocodone Bitart ([place] 5/325) 1 tab Q6H PRN GT For Pain 09/01/18 15:00 09/08/18 14:59 09/02/18 12:30 Albuterol Sulfate (Proventil) 2.5 mg Q6HRT HHN 09/01/18 01:00 09/06/18 00:59 09/01/18 21:06 Aspirin (ASA) 81 mg DAILY ORAL 08/31/18 09:00 09/24/18 08:59 09/03/18 09:01 Atorvastatin Calcium (Lipitor) 40 mg BEDTIME ORAL 08/30/18 21:00 09/24/18 20:59 09/01/18 21:46 Carbidopa/Levodopa (Sinemet 25/100) 1 tab THREE TIMES A DAY ORAL 08/31/18 09:00 09/24/18 08:59 09/03/18 09:02 Clonidine HCl (Catapres Tab) 0.1 mg Q6H PRN ORAL SBP > 150mmHg 08/31/18 18:00 09/30/18 17:59 08/31/18 18:13 Dextrose (Dextrose 50%) 25 ml Q30M PRN IV Hypoglycemia 08/30/18 18:20 09/24/18 18:19 Dextrose (Dextrose 50%) 50 ml Q30M PRN IV Hypoglycemia 08/30/18 18:20 09/24/18 18:19 Docusate Sodium (Colace) 100 mg DAILY ORAL 08/31/18 09:00 09/24/18 08:59 09/03/18 09:02 Donepezil HCl (Aricept) 5 mg DAILY ORAL 08/31/18 09:00 09/24/18 08:59 09/03/18 09:01 Enoxaparin Sodium (Lovenox) 40 mg DAILY SUBQ 08/31/18 09:00 09/24/18 08:59 09/03/18 09:05 Famotidine (Pepcid) 20 mg TWICE A DAY ORAL 08/31/18 09:00 09/24/18 08:59 09/03/18 09:02 Insulin Aspart (NovoLOG) EVERY 6 HOURS SUBQ 08/31/18 00:00 09/24/18 05:59 09/02/18 12:31 Linezolid 300 ml @ 300 mls/hr Q12HR IVPB 08/30/18 21:00 09/05/18 22:59 09/03/18 09:24 Lorazepam (Ativan 2mg/ml 1ml) 0.5 mg Q4H PRN IV For Anxiety 08/30/18 18:20 09/05/18 18:19 09/02/18 12:30 Meropenem 1 gm/ Sodium Chloride 55 ml @ 110 mls/hr Q8HR IVPB 08/30/18 22:00 09/07/18 21:59 09/03/18 06:22 Metoprolol Tartrate (Lopressor) 50 mg Q12HR ORAL 08/30/18 21:00 09/28/18 20:59 09/03/18 09:02 Ondansetron HCl (Zofran) 4 mg Q6H PRN IVP Nausea & Vomiting 08/30/18 18:21 09/24/18 18:20 Salmeterol Xinafoate/ Fluticasone (Advair 250/50 Diskus) 1 puffs EVERY 12 HOURS INH 08/30/18 21:00 09/24/18 08:59 Tamsulosin HCl (Flomax) 0.4 mg BEDTIME ORAL 08/30/18 21:00 09/24/18 20:59 09/01/18 21:47 Zinc Sulfate (Zinc Sulfate) 220 mg DAILY ORAL 08/31/18 09:00 09/24/18 08:59 09/03/18 09:02 Zolpidem Tartrate (Ambien) 5 mg HSPRN PRN ORAL Insomnia 08/30/18 21:00 09/06/18 20:59 Assessment/Plan Problem List: (1) Dementia with behavioral disturbance ICD Codes: F03.91 - Unspecified dementia with behavioral disturbance SNOMED: 6347843199867 Status: unchanged Assessment/Plan increase ativan risperdal 2mg qhs celexa 20mg qam dc aricept Zohaib Arias MD Sep 03, 2018 10:10
[2018-09-03] MEDS ORDERED: LORazepam 1mg tab ORAL PRN (10:30)
[2018-09-03] MEDS: Citalopram Hydrobromide 10mg Tab ORAL SCH (10:50)
--- NOTE | 2018-09-03 14:14 | Diagnostic Imaging Report ---
APPROVED REPORT CPT Code: 16590 Present Symptoms Shortness of breath BILATERAL: Imaging reveals a patent deep venous system bilaterally. There is no evidence of thrombus within the femoral, popliteal or tibial segments. The greater saphenous veins are also within normal limits. Doppler indicates normal spontaneous flow within these segments.
--- NOTE | 2018-09-03 15:14 | Infectious Diseases Prog Note ---
Assessment/Plan Problems: (1) Sepsis due to coagulase-negative staphylococcal infection Assessment & Plan: source most likely his pressure wounds, improving on zyvox . echo ruled out vegetations, repeated blood culture to confirm clearance is negative so far , will treat for two weeks total . EOT 09/11/18 (2) Aspiration pneumonia Assessment & Plan: due to MSSA , on zyvox and meropenem with improvement in his fever and leukocytosis . aspiration precaution, keep HOB > 30 degree all the time (3) UTI (urinary tract infection) Assessment & Plan: due to ESBL producing Klebsiella pneumonia and proteus mirabilis , on meropenem for two weeks .EOT 09/11/18 (4) COPD (chronic obstructive pulmonary disease) Assessment & Plan: due to the above , continue antibiotics, inhalers and nebulizer therapy (5) Diabetes 1.5, managed as type 2 Assessment & Plan: recommend tight glycemic control (6) Heel ulcer Assessment & Plan: on the left mainly, bone scan ruled out osteomyelitis , continue local wound care and dressing change as per hospital protocol. estate planner is following Subjective Constitutional: Reports: no symptoms HEENT: Reports: no symptoms Respiratory: Reports: no symptoms Breasts: Reports: no symptoms Cardiovascular: Reports: no symptoms Gastrointestinal/Abdominal: Reports: no symptoms Genitourinary: Reports: no symptoms Neurologic: Reports: no symptoms Psychiatric: Reports: no symptoms Skin: Reports: no symptoms Endocrine: Reports: no symptoms Hematologic: Reports: no symptoms Musculoskeletal: Reports: no symptoms Allergies: Coded Allergies: No Known Allergies (Unverified , 08/24/18) Subjective He was awake and comfortable, and responsive to verbal commands, was anxious while getting neb treatment . on nasal canula sating well, no fever or chills, has cough , but no SOB, no diarrhea Objective Vital Signs Last 24 Hour Vital Signs Date Time Temp Pulse Resp B/P (MAP) Pulse Ox O2 Delivery O2 Flow Rate FiO2 09/03/18 12:58 Room Air 21 09/03/18 12:58 Room Air 21 09/03/18 09:02 66 150/88 09/03/18 09:00 Nasal Cannula 3.0 09/03/18 08:30 Nasal Cannula 2.0 28 09/03/18 08:30 Nasal Cannula 3.0 32 09/03/18 08:00 98.2 66 20 150/88 (108) 99 09/03/18 07:25 Room Air 21 09/03/18 07:25 Room Air 21 09/03/18 07:25 Room Air 21 09/03/18 07:25 96 Room Air 21 09/03/18 04:00 98.6 72 18 133/74 (93) 97 09/03/18 01:59 Nasal Cannula 3.0 32 09/03/18 01:59 Nasal Cannula 3.0 32 09/03/18 00:00 98.1 82 19 137/84 (101) 99 09/02/18 21:00 Nasal Cannula 3.0 09/02/18 21:00 73 118/70 09/02/18 20:19 Nasal Cannula 3.0 32 09/02/18 20:19 Nasal Cannula 3.0 32 09/02/18 20:19 Nasal Cannula 2.0 28 09/02/18 20:19 Nasal Cannula 3.0 32 09/02/18 20:18 Nasal Cannula 2.0 28 09/02/18 20:17 98 Room Air 2.0 28 09/02/18 20:00 97.7 73 17 118/70 (86) 98 09/02/18 16:00 98.6 84 19 127/77 (94) 98 Height (Feet): 6 Height (Inches): 0.00 Weight (Pounds): 152 General Appearance: WD/WN, no acute distress HEENT: normocephalic, atraumatic, anicteric, mucous membranes moist, PERRL, EOMI, pharynx normal, supple, no JVD Respiratory/Chest: chest wall non-tender, lungs clear, normal breath sounds, no respiratory distress, no accessory muscle use Cardiovascular: normal peripheral pulses, normal rate, regular rhythm, no gallop/murmur, no JVD Abdomen: normal bowel sounds, soft, non tender, no organomegaly, non distended , no mass, no scars Genitourinary: normal external genitalia Extremities: no cyanosis, no clubbing Skin: no rash, no lesions, no ulcers Neurologic/Psychiatric: alert, responsive Lymphatic: no neck adenopathy, no groin adenopathy Musculoskeletal: normal muscle bulk, no effusion Current Medications Medications (Trade) Dose Ordered Sig/Santosh Route PRN Reason Start Time Stop Time Status Last Admin Dose Admin Acetaminophen (Tylenol) 650 mg Q4H PRN ORAL Mild Pain/Temp > 100.5 08/30/18 18:19 09/24/18 18:18 09/01/18 17:46 Acetaminophen (Tylenol) 650 mg Q4H PRN RECTAL Mild Pain/Temp > 100.5 08/30/18 18:15 09/28/18 18:14 Acetaminophen/ Hydrocodone Bitart ([place] 5/325) 1 tab Q6H PRN GT For Pain 09/01/18 15:00 09/08/18 14:59 09/02/18 12:30 Albuterol Sulfate (Proventil) 2.5 mg Q6HRT HHN 09/01/18 01:00 09/06/18 00:59 09/01/18 21:06 Aspirin (ASA) 81 mg DAILY ORAL 08/31/18 09:00 09/24/18 08:59 09/03/18 09:01 Atorvastatin Calcium (Lipitor) 40 mg BEDTIME ORAL 08/30/18 21:00 09/24/18 20:59 09/01/18 21:46 Carbidopa/Levodopa (Sinemet 25/100) 1 tab THREE TIMES A DAY ORAL 08/31/18 09:00 09/24/18 08:59 09/03/18 09:02 Citalopram Hydrobromide (celeXA) 20 mg DAILY ORAL 09/03/18 10:50 10/03/18 10:49 Clonidine HCl (Catapres Tab) 0.1 mg Q6H PRN ORAL SBP > 150mmHg 08/31/18 18:00 09/30/18 17:59 08/31/18 18:13 Dextrose (Dextrose 50%) 25 ml Q30M PRN IV Hypoglycemia 08/30/18 18:20 09/24/18 18:19 Dextrose (Dextrose 50%) 50 ml Q30M PRN IV Hypoglycemia 08/30/18 18:20 09/24/18 18:19 Docusate Sodium (Colace) 100 mg DAILY ORAL 08/31/18 09:00 09/24/18 08:59 09/03/18 09:02 Enoxaparin Sodium (Lovenox) 40 mg DAILY SUBQ 08/31/18 09:00 09/24/18 08:59 09/03/18 09:05 Famotidine (Pepcid) 20 mg TWICE A DAY ORAL 08/31/18 09:00 09/24/18 08:59 09/03/18 09:02 Insulin Aspart (NovoLOG) EVERY 6 HOURS SUBQ 08/31/18 00:00 09/24/18 05:59 09/02/18 12:31 Linezolid 300 ml @ 300 mls/hr Q12HR IVPB 08/30/18 21:00 09/11/18 20:59 09/03/18 09:24 Lorazepam (Ativan) 2 mg Q6H PRN ORAL For Anxiety 09/03/18 10:30 09/10/18 10:29 Meropenem 1 gm/ Sodium Chloride 55 ml @ 110 mls/hr Q8HR IVPB 08/30/18 22:00 09/11/18 21:59 09/03/18 14:22 Metoprolol Tartrate (Lopressor) 50 mg Q12HR ORAL 08/30/18 21:00 09/28/18 20:59 09/03/18 09:02 Ondansetron HCl (Zofran) 4 mg Q6H PRN IVP Nausea & Vomiting 08/30/18 18:21 09/24/18 18:20 Risperidone (RisperDAL) 2 mg BEDTIME ORAL 09/03/18 21:00 10/03/18 20:59 Salmeterol Xinafoate/ Fluticasone (Advair 250/50 Diskus) 1 puffs EVERY 12 HOURS INH 08/30/18 21:00 09/24/18 08:59 Tamsulosin HCl (Flomax) 0.4 mg BEDTIME ORAL 08/30/18 21:00 09/24/18 20:59 09/01/18 21:47 Zinc Sulfate (Zinc Sulfate) 220 mg DAILY ORAL 08/31/18 09:00 09/24/18 08:59 09/03/18 09:02 Vilma Cedeño M.D. Sep 03, 2018 15:14
[2018-09-03 16:00] VITALS: BP 146/76
--- NOTE | 2018-09-03 17:21 | Podiatric Progress Note ---
Assessment/Plan Patient Bradley Talamantes is a 73 year old male who was admitted on Aug 24, 2018 at 21: 23 with Assessment/Plan Assessment/Plan A: Left heel stable eschar. P: - Pt seen and evaluated. - chart reviewed. - Cont pravalon boots to B/L LE. - Rec local wound care betadine application to posterior heel. - Rec off-loading with ABD pad and DSD for outpt management. - No acute surgical intervention at this time. - Pod will cont to monitor. Subjective Allergies: Coded Allergies: No Known Allergies (Unverified , 08/24/18) Subjective - Pt seen bedside for L heel ulceration with nursing staff. Objective Exam Last 24 Hour Vital Signs Date Time Temp Pulse Resp B/P (MAP) Pulse Ox O2 Delivery O2 Flow Rate FiO2 09/03/18 12:58 Room Air 21 09/03/18 12:58 Room Air 21 09/03/18 09:02 66 150/88 09/03/18 09:00 Nasal Cannula 3.0 09/03/18 08:30 Nasal Cannula 2.0 28 09/03/18 08:30 Nasal Cannula 3.0 32 09/03/18 08:00 98.2 66 20 150/88 (108) 99 09/03/18 07:25 Room Air 21 09/03/18 07:25 Room Air 21 09/03/18 07:25 Room Air 21 09/03/18 07:25 96 Room Air 21 09/03/18 04:00 98.6 72 18 133/74 (93) 97 09/03/18 01:59 Nasal Cannula 3.0 32 09/03/18 01:59 Nasal Cannula 3.0 32 09/03/18 00:00 98.1 82 19 137/84 (101) 99 09/02/18 21:00 Nasal Cannula 3.0 09/02/18 21:00 73 118/70 09/02/18 20:19 Nasal Cannula 3.0 32 09/02/18 20:19 Nasal Cannula 3.0 32 09/02/18 20:19 Nasal Cannula 2.0 28 09/02/18 20:19 Nasal Cannula 3.0 32 09/02/18 20:18 Nasal Cannula 2.0 28 09/02/18 20:17 98 Room Air 2.0 28 09/02/18 20:00 97.7 73 17 118/70 (86) 98 Microbiology Date/Time Source Procedure Growth Status 08/29/18 22:45 Blood Blood Culture - Preliminary NO GROWTH AFTER 4 DAYS Resulted 08/25/18 00:40 Sputum Induced Gram Stain - Final Complete 08/25/18 00:40 Sputum Culture - Final Staphylococcus Aureus Usual Respiratory Kristie Complete 08/30/18 01:35 Indwelling Cath Urine Culture - Final NO GROWTH AFTER 48 HOURS Complete 08/24/18 23:50 Rectum - Final NO CARBAPENEM-RESISTANT ENTEROBACTERI... Complete Dermatological Dermatological Narrative VASCULAR: - Dorsalis pedis is palpable +2/4. Posterior tibial artery palpable 1/4. FINANCIAL SERVICES CONSULTANT < 3 seconds. - Edema noted distal to tibial tuberosity. NEUROLOGICAL: - SILT and protective sensation is noted to be intact to bilateral feet. MUSCULOSKELETAL: - The patient is bedbound. Decreased MS noted. contracted digits 2-5. DERMATOLOGICAL: - Left posterior heel stable eschar noted. approx 2.0 x. 2.0cm , no acute SOI are noted. normal temp differential. no active purulent drainage is noted. Gary Fierro DPM Sep 03, 2018 17:21
[2018-09-03 20:00] VITALS: BP 153/80
[2018-09-03] MEDS: Tamsulosin 0.4mg cap ORAL SCH (21:00)
[2018-09-03] MEDS: Atorvastatin 20mg tab ORAL SCH (21:00)
[2018-09-04] VITALS: BP 111/65
[2018-09-04] MEDS: NovoLOG Insulin Flexpen SUBQ SCH ×4 (00:21→18:00)
[2018-09-04] MEDS: Albuterol ud Inhalation HHN SCH ×4 (01:00→19:00)
[2018-09-04 04:00] VITALS: BP 111/61
[2018-09-04] MEDS: Meropenem 1 GM in NS 55 ML IVPB SCH ×2 (05:24→14:19)
[2018-09-04 08:00] VITALS: BP 129/74
--- NOTE | 2018-09-04 08:30 | Pulmonology Progress Note ---
Assessment/Plan Assessment/Plan Impression Respiratory distress Mild hypoxemia Tachycardia, better Leukocytosis Possible sepsis Anemia Acute respiratory failure with noted respiratory acidosis Lactic acidemia Mild protein calorie malnutrition Acute encephalopathy Plan IV antibiotics per ID bone scan noted aspiration precautions BiPAP PRN Monitor oxygen needs DVT prophylaxis Nebulized therapy Prognosis is guarded impression, plan, and exam edited and reviewed in detail care discussed with RN Subjective ROS Limited/Unobtainable: Yes Allergies: Coded Allergies: No Known Allergies (Unverified , 08/24/18) Subjective Hemodynamics noted remains off BIPAP and stable off tele Objective Last 24 Hour Vital Signs Date Time Temp Pulse Resp B/P (MAP) Pulse Ox O2 Delivery O2 Flow Rate FiO2 09/04/18 04:00 97.7 68 18 111/61 (78) 09/04/18 01:30 Nasal Cannula 3.0 32 09/04/18 01:30 Nasal Cannula 3.0 32 09/04/18 00:00 97.0 71 17 111/65 (80) 09/03/18 21:00 84 153/80 09/03/18 21:00 Nasal Cannula 3.0 09/03/18 20:50 Nasal Cannula 3.0 32 09/03/18 20:50 Nasal Cannula 2.0 28 09/03/18 20:50 Nasal Cannula 3.0 32 09/03/18 20:49 97 Room Air 2.0 28 09/03/18 20:49 Nasal Cannula 3.0 32 09/03/18 20:49 Nasal Cannula 2.0 28 09/03/18 20:00 98.1 84 17 153/80 (104) 09/03/18 16:00 98.0 70 20 146/76 (99) 99 09/03/18 12:58 Room Air 21 09/03/18 12:58 Room Air 21 09/03/18 09:02 66 150/88 09/03/18 09:00 Nasal Cannula 3.0 09/03/18 08:30 Nasal Cannula 2.0 28 09/03/18 08:30 Nasal Cannula 3.0 32 Intake and Output 09/03/18 09/04/18 19:00 07:00 Intake Total 915 ml Output Total 2000 ml 1300 ml Balance -2000 ml -385 ml Intake Free Water 200 ml Tube Feeding 715 ml Output Urine Total 2000 ml 1300 ml Objective WDWN on oxygen reduced LOC clear breath sounds bilaterally without rhonchi or wheeze [id number] without MRG NABS nontender no HSM no CC same reviewed and examined Current Medications Medications (Trade) Dose Ordered Sig/Santosh Route PRN Reason Start Time Stop Time Status Last Admin Dose Admin Acetaminophen (Tylenol) 650 mg Q4H PRN ORAL Mild Pain/Temp > 100.5 08/30/18 18:19 09/24/18 18:18 09/01/18 17:46 Acetaminophen (Tylenol) 650 mg Q4H PRN RECTAL Mild Pain/Temp > 100.5 08/30/18 18:15 09/28/18 18:14 Acetaminophen/ Hydrocodone Bitart ([place] 5/325) 1 tab Q6H PRN GT For Pain 09/01/18 15:00 09/08/18 14:59 09/02/18 12:30 Albuterol Sulfate (Proventil) 2.5 mg Q6HRT HHN 09/01/18 01:00 09/06/18 00:59 09/01/18 21:06 Aspirin (ASA) 81 mg DAILY ORAL 08/31/18 09:00 09/24/18 08:59 09/03/18 09:01 Atorvastatin Calcium (Lipitor) 40 mg BEDTIME ORAL 08/30/18 21:00 09/24/18 20:59 09/03/18 21:00 Carbidopa/Levodopa (Sinemet 25/100) 1 tab THREE TIMES A DAY ORAL 08/31/18 09:00 09/24/18 08:59 09/03/18 09:02 Citalopram Hydrobromide (celeXA) 20 mg DAILY ORAL 09/03/18 10:50 10/03/18 10:49 Clonidine HCl (Catapres Tab) 0.1 mg Q6H PRN ORAL SBP > 150mmHg 08/31/18 18:00 09/30/18 17:59 08/31/18 18:13 Dextrose (Dextrose 50%) 25 ml Q30M PRN IV Hypoglycemia 08/30/18 18:20 09/24/18 18:19 Dextrose (Dextrose 50%) 50 ml Q30M PRN IV Hypoglycemia 08/30/18 18:20 09/24/18 18:19 Docusate Sodium (Colace) 100 mg DAILY ORAL 08/31/18 09:00 09/24/18 08:59 09/03/18 09:02 Enoxaparin Sodium (Lovenox) 40 mg DAILY SUBQ 08/31/18 09:00 09/24/18 08:59 09/03/18 09:05 Famotidine (Pepcid) 20 mg TWICE A DAY ORAL 08/31/18 09:00 09/24/18 08:59 09/03/18 18:55 Insulin Aspart (NovoLOG) EVERY 6 HOURS SUBQ 08/31/18 00:00 09/24/18 05:59 09/04/18 00:21 Linezolid 300 ml @ 300 mls/hr Q12HR IVPB 08/30/18 21:00 09/11/18 20:59 09/03/18 21:00 Lorazepam (Ativan) 2 mg Q6H PRN ORAL For Anxiety 09/03/18 10:30 09/10/18 10:29 09/03/18 17:38 Meropenem 1 gm/ Sodium Chloride 55 ml @ 110 mls/hr Q8HR IVPB 08/30/18 22:00 09/11/18 21:59 09/04/18 05:24 Metoprolol Tartrate (Lopressor) 50 mg Q12HR ORAL 08/30/18 21:00 09/28/18 20:59 09/03/18 21:00 Ondansetron HCl (Zofran) 4 mg Q6H PRN IVP Nausea & Vomiting 08/30/18 18:21 09/24/18 18:20 Risperidone (RisperDAL) 2 mg BEDTIME ORAL 09/03/18 21:00 10/03/18 20:59 09/03/18 21:00 Salmeterol Xinafoate/ Fluticasone (Advair 250/50 Diskus) 1 puffs EVERY 12 HOURS INH 08/30/18 21:00 09/24/18 08:59 Tamsulosin HCl (Flomax) 0.4 mg BEDTIME ORAL 08/30/18 21:00 09/24/18 20:59 09/03/18 21:00 Zinc Sulfate (Zinc Sulfate) 220 mg DAILY ORAL 08/31/18 09:00 09/24/18 08:59 09/03/18 09:02 Hernandez Corley MD Sep 04, 2018 08:30
[2018-09-04] MEDS: Docusate 100mg/10ml Liq ORAL SCH (08:59)
[2018-09-04] MEDS: Citalopram Hydrobromide 10mg Tab ORAL SCH (08:59)
[2018-09-04] MEDS: Levodopa/Carbidopa 25/100 tab ORAL SCH ×3 (08:59→18:34)
[2018-09-04] MEDS: Zinc Sulfate 220mg cap ORAL SCH (09:00)
[2018-09-04] MEDS: Aspirin Baby 81mg ORAL SCH (09:00)
[2018-09-04] MEDS: Metoprolol Tartrate 50mg tab ORAL SCH (09:00)
[2018-09-04] MEDS: Enoxaparin 40mg Inj SUBQ SCH (09:06)
[2018-09-04] MEDS: Advair 250/50 Inhaler - 14 dose INH SCH ×2 (09:44→19:51)
--- NOTE | 2018-09-04 11:49 | General Progress Note ---
Assessment/Plan Problem List: (1) Dementia with behavioral disturbance ICD Codes: F03.91 - Unspecified dementia with behavioral disturbance SNOMED: 5222898070193 Status: stable Assessment/Plan increase ativan risperdal 2mg qhs celexa 20mg qam dc aricept dc ambien Subjective Neurologic/Psychiatric: Reports: anxiety, depressed, emotional problems Allergies: Coded Allergies: No Known Allergies (Unverified , 08/24/18) Subjective the pts behavior is more controlled and he is not yelling Objective Last 24 Hour Vital Signs Date Time Temp Pulse Resp B/P (MAP) Pulse Ox O2 Delivery O2 Flow Rate FiO2 09/04/18 09:45 98 Nasal Cannula 3.0 32 09/04/18 09:45 Nasal Cannula 3.0 32 09/04/18 09:45 72 24 Nasal Cannula 3.0 32 09/04/18 09:44 Nasal Cannula 3.0 32 09/04/18 09:44 Nasal Cannula 3.0 32 09/04/18 09:00 Nasal Cannula 3.0 09/04/18 09:00 71 129/74 09/04/18 08:00 97.9 71 20 129/74 (92) 99 09/04/18 07:41 Nasal Cannula 3.0 32 09/04/18 07:41 Nasal Cannula 3.0 32 09/04/18 04:00 97.7 68 18 111/61 (78) 09/04/18 01:30 Nasal Cannula 3.0 32 09/04/18 01:30 Nasal Cannula 3.0 32 09/04/18 00:00 97.0 71 17 111/65 (80) 09/03/18 21:00 84 153/80 09/03/18 21:00 Nasal Cannula 3.0 09/03/18 20:50 Nasal Cannula 3.0 32 09/03/18 20:50 Nasal Cannula 2.0 28 09/03/18 20:50 Nasal Cannula 3.0 32 09/03/18 20:49 97 Room Air 2.0 28 09/03/18 20:49 Nasal Cannula 3.0 32 09/03/18 20:49 Nasal Cannula 2.0 28 09/03/18 20:00 98.1 84 17 153/80 (104) 09/03/18 16:00 98.0 70 20 146/76 (99) 99 09/03/18 12:58 Room Air 21 09/03/18 12:58 Room Air 21 Intake and Output 09/03/18 09/04/18 19:00 07:00 Intake Total 915 ml Output Total 2000 ml 1300 ml Balance -2000 ml -385 ml Intake Free Water 200 ml Tube Feeding 715 ml Output Urine Total 2000 ml 1300 ml Height (Feet): 6 Height (Inches): 0.00 Weight (Pounds): 152 General Appearance: alert, confused, agitated Zohaib Jose MD Sep 04, 2018 11:49
[2018-09-04 12:00] VITALS: BP 121/67
[2018-09-04 16:00] VITALS: BP 125/69
--- NOTE | 2018-09-04 16:22 | Infectious Diseases Prog Note ---
Assessment/Plan Problems: (1) Sepsis due to coagulase-negative staphylococcal infection Assessment & Plan: source most likely his pressure wounds, improving on zyvox . echo ruled out vegetations, repeated blood culture to confirm clearance is negative so far , will treat for two weeks total . EOT 09/11/18 (2) Aspiration pneumonia Assessment & Plan: due to MSSA , on zyvox and meropenem with improvement in his fever and leukocytosis . aspiration precaution, keep HOB > 30 degree all the time (3) UTI (urinary tract infection) Assessment & Plan: due to ESBL producing Klebsiella pneumonia and proteus mirabilis , on meropenem for two weeks .EOT 09/11/18 (4) COPD (chronic obstructive pulmonary disease) Assessment & Plan: due to the above , continue antibiotics, inhalers and nebulizer therapy (5) Diabetes 1.5, managed as type 2 Assessment & Plan: recommend tight glycemic control (6) Heel ulcer Assessment & Plan: on the left mainly, bone scan ruled out osteomyelitis , continue local wound care and dressing change as per hospital protocol. public address system installer is following Subjective ROS Limited/Unobtainable: Yes Allergies: Coded Allergies: No Known Allergies (Unverified , 08/24/18) Subjective He was awake and comfortable, and responsive to verbal commands, was anxious while getting neb treatment . on nasal canula sating well, no fever or chills, has cough , but no SOB, no diarrhea Objective Vital Signs Last 24 Hour Vital Signs Date Time Temp Pulse Resp B/P (MAP) Pulse Ox O2 Delivery O2 Flow Rate FiO2 09/04/18 13:30 Nasal Cannula 3.0 32 09/04/18 13:30 Nasal Cannula 3.0 32 09/04/18 12:00 97.7 63 20 121/67 (85) 98 09/04/18 09:45 98 Nasal Cannula 3.0 32 09/04/18 09:45 Nasal Cannula 3.0 32 09/04/18 09:45 72 24 Nasal Cannula 3.0 32 09/04/18 09:44 Nasal Cannula 3.0 32 09/04/18 09:44 Nasal Cannula 3.0 32 09/04/18 09:00 Nasal Cannula 3.0 09/04/18 09:00 71 129/74 09/04/18 08:00 97.9 71 20 129/74 (92) 99 09/04/18 07:41 Nasal Cannula 3.0 32 09/04/18 07:41 Nasal Cannula 3.0 32 09/04/18 04:00 97.7 68 18 111/61 (78) 09/04/18 01:30 Nasal Cannula 3.0 32 09/04/18 01:30 Nasal Cannula 3.0 32 09/04/18 00:00 97.0 71 17 111/65 (80) 09/03/18 21:00 84 153/80 09/03/18 21:00 Nasal Cannula 3.0 09/03/18 20:50 Nasal Cannula 3.0 32 09/03/18 20:50 Nasal Cannula 2.0 28 09/03/18 20:50 Nasal Cannula 3.0 32 09/03/18 20:49 97 Room Air 2.0 28 09/03/18 20:49 Nasal Cannula 3.0 32 09/03/18 20:49 Nasal Cannula 2.0 28 09/03/18 20:00 98.1 84 17 153/80 (104) Height (Feet): 6 Height (Inches): 0.00 Weight (Pounds): 152 Current Medications Medications (Trade) Dose Ordered Sig/Santosh Route PRN Reason Start Time Stop Time Status Last Admin Dose Admin Acetaminophen (Tylenol) 650 mg Q4H PRN ORAL Mild Pain/Temp > 100.5 08/30/18 18:19 09/24/18 18:18 09/01/18 17:46 Acetaminophen (Tylenol) 650 mg Q4H PRN RECTAL Mild Pain/Temp > 100.5 08/30/18 18:15 09/28/18 18:14 Acetaminophen/ Hydrocodone Bitart ([place] 5/325) 1 tab Q6H PRN GT For Pain 09/01/18 15:00 09/08/18 14:59 09/02/18 12:30 Albuterol Sulfate (Proventil) 2.5 mg Q6HRT HHN 09/01/18 01:00 09/06/18 00:59 09/01/18 21:06 Aspirin (ASA) 81 mg DAILY ORAL 08/31/18 09:00 09/24/18 08:59 09/04/18 09:00 Atorvastatin Calcium (Lipitor) 40 mg BEDTIME ORAL 08/30/18 21:00 09/24/18 20:59 09/03/18 21:00 Carbidopa/Levodopa (Sinemet 25/100) 1 tab THREE TIMES A DAY ORAL 08/31/18 09:00 09/24/18 08:59 09/04/18 14:19 Citalopram Hydrobromide (celeXA) 20 mg DAILY ORAL 09/03/18 10:50 10/03/18 10:49 09/04/18 08:59 Clonidine HCl (Catapres Tab) 0.1 mg Q6H PRN ORAL SBP > 150mmHg 08/31/18 18:00 09/30/18 17:59 08/31/18 18:13 Dextrose (Dextrose 50%) 25 ml Q30M PRN IV Hypoglycemia 08/30/18 18:20 09/24/18 18:19 Dextrose (Dextrose 50%) 50 ml Q30M PRN IV Hypoglycemia 08/30/18 18:20 09/24/18 18:19 Docusate Sodium (Colace) 100 mg DAILY ORAL 08/31/18 09:00 09/24/18 08:59 09/04/18 08:59 Enoxaparin Sodium (Lovenox) 40 mg DAILY SUBQ 08/31/18 09:00 09/24/18 08:59 09/04/18 09:06 Famotidine (Pepcid) 20 mg TWICE A DAY ORAL 08/31/18 09:00 09/24/18 08:59 09/04/18 09:00 Insulin Aspart (NovoLOG) EVERY 6 HOURS SUBQ 08/31/18 00:00 09/24/18 05:59 09/04/18 00:21 Linezolid 300 ml @ 300 mls/hr Q12HR IVPB 08/30/18 21:00 09/11/18 20:59 09/04/18 09:12 Lorazepam (Ativan) 2 mg Q6H PRN ORAL For Anxiety 09/03/18 10:30 09/10/18 10:29 09/03/18 17:38 Meropenem 1 gm/ Sodium Chloride 55 ml @ 110 mls/hr Q8HR IVPB 08/30/18 22:00 09/11/18 21:59 09/04/18 14:19 Metoprolol Tartrate (Lopressor) 50 mg Q12HR ORAL 08/30/18 21:00 09/28/18 20:59 09/04/18 09:00 Ondansetron HCl (Zofran) 4 mg Q6H PRN IVP Nausea & Vomiting 08/30/18 18:21 09/24/18 18:20 Risperidone (RisperDAL) 2 mg BEDTIME ORAL 09/03/18 21:00 10/03/18 20:59 09/03/18 21:00 Salmeterol Xinafoate/ Fluticasone (Advair 250/50 Diskus) 1 puffs EVERY 12 HOURS INH 08/30/18 21:00 09/24/18 08:59 Tamsulosin HCl (Flomax) 0.4 mg BEDTIME ORAL 08/30/18 21:00 09/24/18 20:59 09/03/18 21:00 Zinc Sulfate (Zinc Sulfate) 220 mg DAILY ORAL 08/31/18 09:00 09/24/18 08:59 09/04/18 09:00 Vilma Cedeño M.D. Sep 04, 2018 16:22
--- NOTE | 2018-09-04 17:31 | Infectious Diseases Prog Note ---
Assessment/Plan Problems: (1) Sepsis due to coagulase-negative staphylococcal infection Assessment & Plan: source most likely his pressure wounds, improving on zyvox . echo ruled out vegetations, repeated blood culture to confirm clearance is negative so far , will treat for two weeks total . EOT 09/11/18 (2) Aspiration pneumonia Assessment & Plan: due to MSSA , on zyvox and meropenem with improvement in his fever and leukocytosis . aspiration precaution, keep HOB > 30 degree all the time (3) UTI (urinary tract infection) Assessment & Plan: due to ESBL producing Klebsiella pneumonia and proteus mirabilis , on meropenem for two weeks .EOT 09/11/18 (4) COPD (chronic obstructive pulmonary disease) Assessment & Plan: due to the above , continue antibiotics, inhalers and nebulizer therapy (5) Diabetes 1.5, managed as type 2 Assessment & Plan: recommend tight glycemic control (6) Heel ulcer Assessment & Plan: on the left mainly, bone scan ruled out osteomyelitis , continue local wound care and dressing change as per hospital protocol. baccarat manager is following Subjective Constitutional: Reports: no symptoms HEENT: Reports: no symptoms Respiratory: Reports: no symptoms Breasts: Reports: no symptoms Cardiovascular: Reports: no symptoms Gastrointestinal/Abdominal: Reports: no symptoms Genitourinary: Reports: no symptoms Neurologic: Reports: no symptoms Psychiatric: Reports: no symptoms Skin: Reports: no symptoms Endocrine: Reports: no symptoms Hematologic: Reports: no symptoms Allergies: Coded Allergies: No Known Allergies (Unverified , 08/24/18) Subjective He was awake and comfortable, and responsive to verbal commands, was anxious while getting neb treatment . on nasal canula sating well, no fever or chills, has cough , but no SOB, no diarrhea Objective Vital Signs Last 24 Hour Vital Signs Date Time Temp Pulse Resp B/P (MAP) Pulse Ox O2 Delivery O2 Flow Rate FiO2 09/04/18 16:00 97.9 64 20 125/69 (87) 98 09/04/18 13:30 Nasal Cannula 3.0 32 09/04/18 13:30 Nasal Cannula 3.0 32 09/04/18 12:00 97.7 63 20 121/67 (85) 98 09/04/18 09:45 98 Nasal Cannula 3.0 32 09/04/18 09:45 Nasal Cannula 3.0 32 09/04/18 09:45 72 24 Nasal Cannula 3.0 32 09/04/18 09:44 Nasal Cannula 3.0 32 09/04/18 09:44 Nasal Cannula 3.0 32 09/04/18 09:00 Nasal Cannula 3.0 09/04/18 09:00 71 129/74 09/04/18 08:00 97.9 71 20 129/74 (92) 99 09/04/18 07:41 Nasal Cannula 3.0 32 09/04/18 07:41 Nasal Cannula 3.0 32 09/04/18 04:00 97.7 68 18 111/61 (78) 09/04/18 01:30 Nasal Cannula 3.0 32 09/04/18 01:30 Nasal Cannula 3.0 32 09/04/18 00:00 97.0 71 17 111/65 (80) 09/03/18 21:00 84 153/80 09/03/18 21:00 Nasal Cannula 3.0 09/03/18 20:50 Nasal Cannula 3.0 32 09/03/18 20:50 Nasal Cannula 2.0 28 09/03/18 20:50 Nasal Cannula 3.0 32 09/03/18 20:49 97 Room Air 2.0 28 09/03/18 20:49 Nasal Cannula 3.0 32 09/03/18 20:49 Nasal Cannula 2.0 28 09/03/18 20:00 98.1 84 17 153/80 (104) Height (Feet): 6 Height (Inches): 0.00 Weight (Pounds): 152 General Appearance: WD/WN, no acute distress HEENT: normocephalic, atraumatic, anicteric, mucous membranes moist, PERRL, EOMI, pharynx normal, supple, no JVD Respiratory/Chest: chest wall non-tender, no respiratory distress, no accessory muscle use Cardiovascular: normal peripheral pulses, normal rate, regular rhythm, no gallop/murmur, no JVD Abdomen: normal bowel sounds, soft, non tender, no organomegaly, non distended , no mass, no scars Genitourinary: normal external genitalia Extremities: no cyanosis, no clubbing Skin: no rash, no lesions, no ulcers 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/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: 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 normal, alert, responsive Lymphatic: no neck adenopathy, no groin adenopathy Musculoskeletal: normal muscle bulk Current Medications Medications (Trade) Dose Ordered Sig/Santosh Route PRN Reason Start Time Stop Time Status Last Admin Dose Admin Acetaminophen (Tylenol) 650 mg Q4H PRN ORAL Mild Pain/Temp > 100.5 08/30/18 18:19 09/24/18 18:18 09/01/18 17:46 Acetaminophen (Tylenol) 650 mg Q4H PRN RECTAL Mild Pain/Temp > 100.5 08/30/18 18:15 09/28/18 18:14 Acetaminophen/ Hydrocodone Bitart ([place] 5/325) 1 tab Q6H PRN GT For Pain 09/01/18 15:00 09/08/18 14:59 09/02/18 12:30 Albuterol Sulfate (Proventil) 2.5 mg Q6HRT HHN 09/01/18 01:00 09/06/18 00:59 09/01/18 21:06 Aspirin (ASA) 81 mg DAILY ORAL 08/31/18 09:00 09/24/18 08:59 09/04/18 09:00 Atorvastatin Calcium (Lipitor) 40 mg BEDTIME ORAL 08/30/18 21:00 09/24/18 20:59 09/03/18 21:00 Carbidopa/Levodopa (Sinemet 25/100) 1 tab THREE TIMES A DAY ORAL 08/31/18 09:00 09/24/18 08:59 09/04/18 14:19 Citalopram Hydrobromide (celeXA) 20 mg DAILY ORAL 09/03/18 10:50 10/03/18 10:49 09/04/18 08:59 Clonidine HCl (Catapres Tab) 0.1 mg Q6H PRN ORAL SBP > 150mmHg 08/31/18 18:00 09/30/18 17:59 08/31/18 18:13 Dextrose (Dextrose 50%) 25 ml Q30M PRN IV Hypoglycemia 08/30/18 18:20 09/24/18 18:19 Dextrose (Dextrose 50%) 50 ml Q30M PRN IV Hypoglycemia 08/30/18 18:20 09/24/18 18:19 Docusate Sodium (Colace) 100 mg DAILY ORAL 08/31/18 09:00 09/24/18 08:59 09/04/18 08:59 Enoxaparin Sodium (Lovenox) 40 mg DAILY SUBQ 08/31/18 09:00 09/24/18 08:59 09/04/18 09:06 Famotidine (Pepcid) 20 mg TWICE A DAY ORAL 08/31/18 09:00 09/24/18 08:59 09/04/18 09:00 Insulin Aspart (NovoLOG) EVERY 6 HOURS SUBQ 08/31/18 00:00 09/24/18 05:59 09/04/18 00:21 Linezolid 300 ml @ 300 mls/hr Q12HR IVPB 08/30/18 21:00 09/11/18 20:59 09/04/18 09:12 Lorazepam (Ativan) 2 mg Q6H PRN ORAL For Anxiety 09/03/18 10:30 09/10/18 10:29 09/03/18 17:38 Meropenem 1 gm/ Sodium Chloride 55 ml @ 110 mls/hr Q8HR IVPB 08/30/18 22:00 09/11/18 21:59 09/04/18 14:19 Metoprolol Tartrate (Lopressor) 50 mg Q12HR ORAL 08/30/18 21:00 09/28/18 20:59 09/04/18 09:00 Ondansetron HCl (Zofran) 4 mg Q6H PRN IVP Nausea & Vomiting 08/30/18 18:21 09/24/18 18:20 Risperidone (RisperDAL) 2 mg BEDTIME ORAL 09/03/18 21:00 10/03/18 20:59 09/03/18 21:00 Salmeterol Xinafoate/ Fluticasone (Advair 250/50 Diskus) 1 puffs EVERY 12 HOURS INH 08/30/18 21:00 09/24/18 08:59 Tamsulosin HCl (Flomax) 0.4 mg BEDTIME ORAL 08/30/18 21:00 09/24/18 20:59 09/03/18 21:00 Zinc Sulfate (Zinc Sulfate) 220 mg DAILY ORAL 08/31/18 09:00 09/24/18 08:59 09/04/18 09:00 Vilma Cedeño M.D. Sep 04, 2018 17:31
[2018-09-04] MEDS ORDERED: NS 275ml ONE (18:51)
== END 2018-09-04 18:52 | DRG 871 ==
LOC: EDBD 19:06 → EMR 19:58 → EDBEDREQ 21:19 → 3E 21:23 → EDBEDREQ 21:33 → 4E 08-25 00:20 → 2W 08-29 18:53 → 4E 08-30 18:16
DX: A41.1 Sepsis due to other specified staphylococcus (principal); L89.153 Pressure ulcer of sacral region, stage 3; J69.0 Pneumonitis due to inhalation of food and vomit; J96.01 Acute respiratory failure with hypoxia; J44.1 Chronic obstructive pulmonary disease with (acute) exacerbation; N39.0 Urinary tract infection, site not specified; G93.40 Encephalopathy, unspecified; F03.91 Unspecified dementia, unspecified severity, with behavioral disturbance; E44.1 Mild protein-calorie malnutrition; B96.1 Klebsiella pneumoniae [K. pneumoniae] as the cause of diseases classified elsewhere; B96.4 Proteus (mirabilis) (morganii) as the cause of diseases classified elsewhere; E03.9 Hypothyroidism, unspecified; I69.991 Dysphagia following unspecified cerebrovascular disease; R13.10 Dysphagia, unspecified; E86.1 Hypovolemia; L89.620 Pressure ulcer of left heel, unstageable; Z68.20 Body mass index [BMI] 20.0-20.9, adult; G40.909 Epilepsy, unspecified, not intractable, without status epilepticus
CPT/HCPCS: 36415; 36600; 71045; 78315; 80048; 80053; 80202; 81003; 82550; 82553; 82607; 82803; 82962; 83036; 83605; 83735; 84100; 84439; 84443; 84484; 85007; 85025; 87040; 87070; 87081; 87086; 87181; 87205; 93005; 93306; 93970; 94640; 94660; 94664; 94760; 96361; 96365; 99285; J1815; J8499